=== PATIENT | male | born 1930 | race Caucasian/White ===

== ENCOUNTER 2017-05-24 13:56 | Observation (INO) | payer MEDICARE, BC ==
[~2017-05-24] VITALS: Ht 188 cm; Wt 76.5 kg
[~2017-05-24 13:56] MED LIST: TAB-TAB PO; TAMS0.4C67 PO
[2017-05-24 14:09] VITALS: BP 126/77; PULSE 84; RESP 16; TEMP 97.6; O2SAT 96
[2017-05-24 14:49] LABS: AUTOMATED NEUTROPHIL # 3.2 TH/MM3 (1.8-7.7); BASOPHIL % 0.1 % (0.0-2.0); EOSINOPHIL # 0.1 TH/MM3 (0-0.4); EOSINOPHIL % 1.5 % (0.0-4.0); HEMATOCRIT 44.3 % (39.0-51.0); HEMO FLAGS DIFF FINAL; LYMPH % 28.2 % (9.0-44.0); LYMPHOCYTE # 1.6 TH/MM3 (1.0-4.8); MEAN CORPUSCULAR HEMOGLOBIN 28.7 PG (27.0-34.0); MEAN CORPUSCULAR HGB CONC 33.4 % (32.0-36.0); MONO % 10.8 % (0.0-8.0); NEUT % 59.4 % (16.0-70.0); PLATELET COUNT 154 TH/MM3 (150-450); RED BLOOD COUNT 5.15 MIL/MM3 (4.50-5.90); RED CELL DISTRIBUTION WIDTH 13.7 % (11.6-17.2); WHITE BLOOD COUNT 5.5 TH/MM3 (4.0-11.0)
[2017-05-24 14:57] LABS: POTASSIUM 4.1 MEQ/L (3.5-5.1)
[2017-05-24 15:00] LABS: BICARBONATE 28.2 MEQ/L (21.0-32.0)
[2017-05-24 15:01] LABS: APTT (PATIENT) 32.8 SEC (24.3-30.1); INTERNATIONAL NORMALIZED RATIO 1.1 RATIO; PROTHROMBIN TIME - PATIENT 11.9 SEC (9.8-11.6)
--- NOTE | 2017-05-24 15:21 | PD ---
HPI Chief Complaint: Syncope/Near-Syncope Time Seen by Provider: 14:18 Travel History International Travel<30 days: No Contact w/Intl Traveler<30days: No Traveled to known affect area: No History of Present Illness HPI 86yo M with PMH of BPH presents to the ED with episode of not feeling well at imaging center. Pt was suppose to get CXR for cough and CT a/p for hematuria today and while standing for the CXR, he started to feel unwell around 10am. Pt cannot remember if he was nauseous or not but the accredited pharmacy technician said he did not look good so sat him down on wheelchair. He did urinate on himself prior to sitting down. Said he was feeling generalized weakness. Denies any LOC. Denies any chest pain, sob, vomiting, abdominal pain, focal weakness or numbness. Pt has no cardiac history and no angiographer. Pt had an episode of syncope in 2006 and was admitted to telemetry and had been evaluated by neurology and Dr. Davenport from cardiology. EKG was sinus bradycardia. Pt has been recently treated for UTI as well. PFSH Past Medical History Blood Disorders: No Heart Rhythm Problems: No Cancer: No Cardiovascular Problems: Yes High Cholesterol: No Chemotherapy: No Chest Pain: No Congestive Heart Failure: No Diminished Hearing: Yes (BILATERAL) Endocrine: No Gastrointestinal Disorders: No Hypertension: Yes (HAS RESOLVED WITH LIFESTYLE CHANGES) Immune Disorder: No Musculoskeletal: No Neurologic: No Psychiatric: No Reproductive: No Respiratory: No Immunizations Current: Yes Myocardial Infarction: No Radiation Therapy: No Tetanus Vaccination: > 5 Years Influenza Vaccination: Yes Past Surgical History Abdominal Surgery: No AICD: No Arteriovenous Shunt: No Cardiac Surgery: No Ear Surgery: No Endocrine Surgery: No Eye Surgery: No Genitourinary Surgery: No Gynecologic Surgery: No Insulin Pump: No Joint Replacement: No Neurologic Surgery: Yes (BRAIN BLEED) Oral Surgery: Yes (TONSILLECTOMY A CHILD) Pacemaker: No Thoracic Surgery: No Tonsillectomy: Yes (1938) Other Surgery: Yes (1989--BILATERAL INGUINAL HERNIA) Social History Alcohol Use: No Tobacco Use: No Substance Use: No Allergies-Medications (Allergen,Severity, Reaction): Coded Allergies: No Known Allergies (Verified , 05/24/17) Reported Meds & Prescriptions Reported Meds & Active Scripts Active No Active Prescriptions or Reported Medications Review of Systems Except as stated in HPI: all other systems reviewed are Neg Physical Exam Narrative GENERAL: 86yo M not in distress. SKIN: Focused skin assessment warm/dry. HEAD: Atraumatic. Normocephalic. EYES: Pupils equal and round. No scleral icterus. No injection or drainage. ENT: No nasal bleeding or discharge. Mucous membranes pink and moist. NECK: Trachea midline. No JVD. CARDIOVASCULAR: Irregular heart rate. No murmur appreciated. RESPIRATORY: No accessory muscle use. Clear to auscultation. Breath sounds equal bilaterally. GASTROINTESTINAL: Abdomen soft, non-tender, nondistended. MUSCULOSKELETAL: No obvious deformities. No clubbing. No cyanosis. No edema. NEUROLOGICAL: Awake and alert. No obvious cranial nerve deficits. Motor grossly within normal limits. Normal speech. PSYCHIATRIC: Appropriate mood and affect; insight and judgment normal. Data Data Last Documented VS Vital Signs Date Time Temp Pulse Resp B/P (MAP) Pulse Ox O2 Delivery O2 Flow Rate FiO2 05/24/17 16:11 82 14 97/60 (72) 115 14 115/69 (84) 118 14 86/58 (67) 05/24/17 16:00 98 Room Air 05/24/17 14:09 97.6 Orders Orders Complete Blood Count With Diff (05/24/17 14:36) Basic Metabolic Panel (Bmp) (05/24/17 14:36) Prothrombin Time / Inr (Pt) (05/24/17 14:36) Act Partial Throm Time (Ptt) (05/24/17 14:36) Troponin I (05/24/17 14:36) Urinalysis - C+S If Indicated (05/24/17 14:36) Orthostatic Vital Signs (05/24/17 16:01) Sodium Chlorid 0.9% 500 Ml Inj (Ns 500 M (05/24/17 16:15) Electrocardiogram (05/24/17 14:04) Admit Order (Ed Use Only) (05/24/17 17:08) Labs Laboratory Tests Test 05/24/17 14:45 White Blood Count 5.5 TH/MM3 Red Blood Count 5.15 MIL/MM3 Hemoglobin 14.8 GM/DL Hematocrit 44.3 % Mean Corpuscular Volume 86.0 FL Mean Corpuscular Hemoglobin 28.7 PG Mean Corpuscular Hemoglobin Concent 33.4 % Red Cell Distribution Width 13.7 % Platelet Count 154 TH/MM3 Mean Platelet Volume 8.2 FL Neutrophils (%) (Auto) 59.4 % Lymphocytes (%) (Auto) 28.2 % Monocytes (%) (Auto) 10.8 % Eosinophils (%) (Auto) 1.5 % Basophils (%) (Auto) 0.1 % Neutrophils # (Auto) 3.2 TH/MM3 Lymphocytes # (Auto) 1.6 TH/MM3 Monocytes # (Auto) 0.6 TH/MM3 Eosinophils # (Auto) 0.1 TH/MM3 Basophils # (Auto) 0.0 TH/MM3 CBC Comment DIFF FINAL Differential Comment Prothrombin Time 11.9 SEC Prothromb Time International Ratio 1.1 RATIO Activated Partial Thromboplast Time 32.8 SEC Blood Urea Nitrogen 33 MG/DL Creatinine 1.50 MG/DL Random Glucose 113 MG/DL Calcium Level 8.7 MG/DL Sodium Level 135 MEQ/L Potassium Level 4.1 MEQ/L Chloride Level 99 MEQ/L Carbon Dioxide Level 28.2 MEQ/L Anion Gap 8 MEQ/L Estimat Glomerular Filtration Rate 45 ML/MIN Troponin I 0.02 NG/ML [facility] Medical Decision Making Medical Screen Exam Complete: Yes Emergency Medical Condition: Yes Interpretation(s) EKG: Afib at 78bpm. LAD. No ST segment elevation or depression. Differential Diagnosis New onset afib vs. dehydration vs. UTI Narrative Course 86yo M with new onset afib. Pt has been having generalized weakness and had an episode of not feeling well at imaging center today. Daughter said he usually is very active but has been feeling weak for the last few weeks which is new and also sob with exertion. Labs reviewed, no leukocytosis. BUN/creatinine 33/ 1.50. Troponin negative. I discussed with pt's primary care physician Dr. Bravo and he said that pt has never had afib before and this is new. Also creatinine is around baseline. States the CXR he took today at [facility] shows no acute abnormality. UA pending. Orthostatic positive. Pt's heart rate went form 82bpm to 118bpm when standing. Pt given NS IVF. I discussed with Dr. Omer who accepted pt to her service. Diagnosis Primary Impression: New onset a-fib Admitting Information Admitting Physician Requests: Observation Scripts No Active Prescriptions or Reported Meds Olga Wasserman DO May 24, 2017 15:21
[2017-05-24 16:00] VITALS: BP 105/79; PULSE 85; RESP 14; O2SAT 98
[2017-05-24 16:11] VITALS: BP_SYST 115; BP_SYST 86; BP_SYST 97; BP_DIAS 58; BP_DIAS 60; BP_DIAS 69; RESP 14
[2017-05-24] MEDS ORDERED: SODIUM CHLORID 0.9% 500 ML INJ 500 ML IV ONE (16:15)
[2017-05-24] MEDS ORDERED: SODIUM CHLORIDE 0.9% FLUSH 10 ML FLUSH IV FLUSH PRN (17:15)
[2017-05-24] MEDS ORDERED: ACETAMINOPHEN 325 MG TAB PO PRN (17:15)
[2017-05-24] MEDS ORDERED: NALOXONE HCL 0.4 MG/ML AMP IV PUSH PRN (17:15)
[2017-05-24] MEDS ORDERED: BISACODYL 10 MG SUPP RECTAL PRN (17:15)
[2017-05-24] MEDS ORDERED: MAGNESIUM HYDROXIDE SUSP 30 ML CUP PO PRN (17:15)
[2017-05-24] MEDS ORDERED: ONDANSETRON HCL 4 MG/2 ML VIAL IVP PRN (17:15)
[2017-05-24] MEDS ORDERED: DILTIAZEM HCL 30 MG TAB PO PRN (17:15)
[2017-05-24] MEDS ORDERED: LACTULOSE SYRUP 20 GM/30 ML CUP PO PRN (17:15)
[2017-05-24] MEDS ORDERED: SENNOSIDES 8.6 MG TAB PO PRN (17:15)
[2017-05-24] MEDS: ASPIRIN 325 MG TAB PO SCH (17:27)
[2017-05-24] MEDS: ENOXAPARIN SODIUM 40 MG/0.4 ML SYRINGE SQ SCH (17:27)
[2017-05-24] MEDS: SODIUM CHLOR 0.9% 1000 ML INJ 1,000 ML IV SCH (17:27)
[2017-05-24 17:39] VITALS: BP 114/74; PULSE 88; RESP 16; O2SAT 98
[2017-05-24] MEDS: SODIUM CHLORIDE 0.9% FLUSH 10 ML FLUSH IV FLUSH SCH (19:38)
[2017-05-24 20:00] VITALS: BP 115/78; PULSE 77; RESP 20; TEMP 96.6; O2SAT 98
[2017-05-24 20:10] LABS: FREE T3 2.09 PG/ML (2.18-3.98)
[2017-05-24 22:01] LABS: BLOOD, URINE MOD (NEG); GLUCOSE,URINE NEG (NEG); KETONE, URINE NEG (NEG); NITRITE,URINE NEG (NEG); PH, URINE 5.5 (5.0-8.5)
[2017-05-24 22:14] LABS: RBC, URINE 0-3 /hpf (0-3); URINE COLOR YELLOW (YELLW/STRAW)
[2017-05-24 22:15] LABS: COMMENT (UR) CULT NOT INDICATED; CULTURE IF INDICATED CULT NOT INDICATED; SQUAMOUS EPITHELIAL CELL URINE 0-5 /hpf (0-5)
[2017-05-25] VITALS: BP 132/84; PULSE 77; RESP 20; TEMP 96.9; O2SAT 99
[2017-05-25] MEDS: SODIUM CHLOR 0.9% 1000 ML INJ 1,000 ML IV SCH ×3 (03:07→13:09)
[2017-05-25 04:00] VITALS: BP 116/83; PULSE 77; RESP 20; TEMP 97.7; O2SAT 98
[2017-05-25 06:44] LABS: BICARBONATE 28.9 MEQ/L (21.0-32.0); POTASSIUM 5.3 MEQ/L (3.5-5.1)
[2017-05-25 08:00] VITALS: BP 111/73; PULSE 76; RESP 18; TEMP 97.1; O2SAT 98
--- NOTE | 2017-05-25 08:11 | PD.CONS ---
HPI Service atrial fibrillation Consult Requested By Primary Care Physician Jorge A Bravo MD History of Present Illness Here with HTN, h/o syncope, h/o SDH s/p craniotomy for a syncopal episode at [facility]. He state he was there yesterday to get imaging done ordered by his PCP and had syncope. He also complained of weakness. In the ER he was found in a-fib. He denies chest pain, shortness of breath or palpitations Review of Systems Consitutional: DENIES: Fatigue, Fever, Chills, Weight gain, Weight loss Eyes: DENIES: Amaurosis Fugax, Change in vision HEENT: DENIES: Lightheadedness, Change in hearing Respiratory: DENIES: See HPI, Cough, Snoring, Shortness of breath, Wheezing, Sputum production Cardiovascular: COMPLAINS OF: See HPI Gastrointestinal: DENIES: Nausea, Vomiting, Change in bowel habits, Reflux, Bloody stools, Melena Genitourinary: DENIES: Urinary incontinence, Difficulty voiding Integumentary: DENIES: Rash Neurologic: DENIES: Tingling or numbness, Memory problems, Poor Balance, Stroke symptoms Musculoskeletal: DENIES: Joint pain, Muscle pain, Limited range of motion, Back pain Psychiatric: DENIES: Anxiety, Depression, Sleep disturbances Hematologic: DENIES: Bruising tendencies, Bleeding tendencies Endocrine: DENIES: Weight gain, Weight loss, Thyroid disease Past Family Social History Allergies: Coded Allergies: No Known Allergies (Verified , 05/24/17) Past Medical History see HPI Past Surgical History se HPI Reported Medications Reported Meds & Active Scripts Active No Active Prescriptions or Reported Medications Active Ordered Medications Current Medications Medications (Trade) Dose Ordered Sig/Tyler Route Start Time Stop Time Status Last Admin Sodium Chloride 1,000 ml @ 100 mls/hr Q10H IV 05/24/17 17:07 05/25/17 03:07 (NS Flush) 2 ml UNSCH PRN IV FLUSH 05/24/17 17:15 (NS Flush) 2 ml BID IV FLUSH 05/24/17 21:00 (Tylenol) 650 mg Q4H PRN PO 05/24/17 17:15 (Zofran Inj) 4 mg Q6H PRN IVP 05/24/17 17:15 (Lovenox Inj) 40 mg Q24H SQ 05/24/17 18:00 05/24/17 17:27 (Narcan Inj) 0.4 mg UNSCH PRN IV PUSH 05/24/17 17:15 (Milk Of Magnesia Liq) 30 ml Q12H PRN PO 05/24/17 17:15 (Senokot) 17.2 mg Q12H PRN PO 05/24/17 17:15 (Dulcolax Supp) 10 mg DAILY PRN RECTAL 05/24/17 17:15 (Lactulose Liq) 30 ml DAILY PRN PO 05/24/17 17:15 (Aspirin) 325 mg DAILY PO 05/24/17 17:15 05/24/17 17:27 (Cardizem) 30 mg Q6HR PRN PO 05/24/17 17:15 (Flu (Quadrivalent) Vaccine Inj) 0.5 ml ONCE ONCE IM 05/26/17 10:00 05/26/17 10:01 Family History noncontributory Social History denies smoking, alcohol or substance abuse Physical Exam Vital Signs Vital Signs Date Time Temp Pulse Resp B/P (MAP) Pulse Ox O2 Delivery O2 Flow Rate FiO2 05/25/17 04:00 97.7 77 20 116/83 (94) 98 05/25/17 00:00 96.9 77 20 132/84 (100) 99 05/24/17 20:00 96.6 77 20 115/78 (90) 98 05/24/17 18:05 05/24/17 17:39 88 16 114/74 (87) 98 Room Air 05/24/17 17:39 Room Air 05/24/17 16:11 82 14 97/60 (72) 115 14 115/69 (84) 118 14 86/58 (67) 05/24/17 16:00 85 14 105/79 (88) 98 Room Air 05/24/17 14:14 (93) 05/24/17 14:09 Room Air 05/24/17 14:09 97.6 84 16 126/77 (93) 96 Room Air Physical Exam GENERAL: Well-nourished, well-developed patient in no apparent distress. NECK: No JVD. No carotid bruit. CARDIOVASCULAR: IR IR. S1/S2 no murmur, rub, or gallop. RESPIRATORY: No accessory muscle use. Clear to auscultation. Breath sounds equal bilaterally. GASTROINTESTINAL: Abdomen soft, non-tender, nondistended. MUSCULOSKELETAL: Extremities without clubbing, cyanosis, or edema. Laboratory Laboratory Tests Test 05/24/17 14:45 05/24/17 21:40 05/25/17 04:50 White Blood Count 5.5 Red Blood Count 5.15 Hemoglobin 14.8 Hematocrit 44.3 Mean Corpuscular Volume 86.0 Mean Corpuscular Hemoglobin 28.7 Mean Corpuscular Hemoglobin Concent 33.4 Red Cell Distribution Width 13.7 Platelet Count 154 Mean Platelet Volume 8.2 Neutrophils (%) (Auto) 59.4 Lymphocytes (%) (Auto) 28.2 Monocytes (%) (Auto) 10.8 Eosinophils (%) (Auto) 1.5 Basophils (%) (Auto) 0.1 Neutrophils # (Auto) 3.2 Lymphocytes # (Auto) 1.6 Monocytes # (Auto) 0.6 Eosinophils # (Auto) 0.1 Basophils # (Auto) 0.0 CBC Comment DIFF FINAL Differential Comment Prothrombin Time 11.9 Prothromb Time International Ratio 1.1 Activated Partial Thromboplast Time 32.8 Blood Urea Nitrogen 33 32 Creatinine 1.50 1.40 Random Glucose 113 79 Calcium Level 8.7 7.4 Sodium Level 135 136 Potassium Level 4.1 5.3 Chloride Level 99 102 Carbon Dioxide Level 28.2 28.9 Anion Gap 8 5 Estimat Glomerular Filtration Rate 45 48 Troponin I 0.02 Free Triiodothyronine (T3) pg/dL 2.09 Thyroid Stimulating Hormone 3rd Gen 3.860 Urine Color YELLOW Urine Turbidity CLEAR Urine pH 5.5 Urine Specific [place] 1.020 Urine Protein NEG Urine Glucose (UA) NEG Urine Ketones NEG Urine Occult Blood MOD Urine Nitrite NEG Urine Bilirubin NEG Urine Leukocyte Esterase NEG Urine RBC 0-3 Urine Squamous Epithelial Cells 0-5 Microscopic Urinalysis Comment CULT NOT INDICATED Total Protein 6.0 Protein Corrected Calcium 8.0 Result Diagram: 05/24/17 1445 05/25/17 0450 Assessment and Plan Problem List: (1) New onset a-fib ICD Codes: I48.91 - Unspecified atrial fibrillation Status: Acute Assessment and Plan HR is controlled. We will get a 2D echo. In 2010 he was instructed no to take anticoagulants, therefore he may not be a candidate for these Efren Guillen May 25, 2017 08:11
[2017-05-25] MEDS: SODIUM CHLORIDE 0.9% FLUSH 10 ML FLUSH IV FLUSH SCH ×2 (09:00→21:09)
[2017-05-25] MEDS: CALCIUM CARBONATE 500 MG CHEWABLE TAB CHEW SCH ×2 (09:14→21:08)
[2017-05-25] MEDS: ASPIRIN 325 MG TAB PO SCH (09:14)
--- NOTE | 2017-05-25 11:06 | HHI.HP ---
[facility] Service [facility] Primary Care Physician Jorge A Bravo MD Admission Diagnosis New onset afib Diagnoses: Travel History International Travel<30 Days: No Contact w/Intl Traveler <30 Da: No Traveled to Known Affected Are: No History of Present Illness This is a pleasant 86 year-old male with past medical history of neurocardiogenic syncope and BPH who presented to the ER yesterday after a near syncopal episode. History is obtained from the patient's daughter at bedside as the patient himself is forgetful on a poor historian. Yesterday he was getting a chest x-ray at the [facility] which was ordered for evaluation of a chronic cough. While standing the mechanical service technician noticed that he appeared like he was about to pass out. There was no syncopal event. However he did urinate himself. In the emergency department he was noted to have atrial fibrillation with controlled ventricular rate. Patient has no previous cardiac history or or history of atrial fibrillation. Patient has recently been treated for urinary tract infection. He also has had microscopic hematuria noticed by his primary care physician and was supposed to get an abdominal CT scan yesterday for evaluation. Orthostatics were positive in the emergency department. The patient's daughter states that they have trouble getting him to drink enough fluids. His BUN and creatinine were also mildly elevated. Patient was placed in observation. Overnight he has remained in atrial fibrillation with controlled rate. He has received IV fluids. Patient denies chest pain, palpitations or shortness of breath. Daughter states that he does tend to be forgetful but he has no formal diagnosis of dementia. He recently started taking Flonase for allergies. Review of Systems ROS Limitations: Poor Historian Constitutional: DENIES: Fever, Chills Ears, nose, mouth, throat: DENIES: Throat pain, Odynophagia Respiratory: COMPLAINS OF: Cough, DENIES: Sputum production Cardiovascular: DENIES: Chest pain, Palpitations Gastrointestinal: DENIES: Abdominal pain, Vomiting Genitourinary: DENIES: Urgency, Dysuria Musculoskeletal: DENIES: Muscle aches, Stiffness Integumentary: DENIES: Pruritus Neurologic: DENIES: Abnormal gait, Headache Psychiatric: COMPLAINS OF: Confusion, DENIES: Anxiety Past Family Social History Past Medical History History of subdural hematoma with evacuation in 2011 after a fall BPH History of orthostatic syncope Past Surgical History Subdural hematoma evacuation in 2010 Bilateral inguinal hernia Reported Medications Allergies Coded Allergies Type Severity Reaction Last Updated Verified No Known Allergies 05/24/17 Yes Active Scripts Medications Dose Route/Sig Max Daily Dose Days Date Category No Active Prescriptions or Reported Medications Rx Allergies: Coded Allergies: No Known Allergies (Verified , 05/24/17) Family History Reviewed and noncontributory Social History No alcohol tobacco or drug use. He lives with his . Physical Exam Vital Signs Vital Signs Date Time Temp Pulse Resp B/P (MAP) Pulse Ox O2 Delivery O2 Flow Rate FiO2 05/25/17 08:00 97.1 76 18 111/73 (86) 98 05/25/17 04:00 97.7 77 20 116/83 (94) 98 05/25/17 00:00 96.9 77 20 132/84 (100) 99 05/24/17 20:00 96.6 77 20 115/78 (90) 98 05/24/17 18:05 05/24/17 17:39 88 16 114/74 (87) 98 Room Air 05/24/17 17:39 Room Air 05/24/17 16:11 82 14 97/60 (72) 115 14 115/69 (84) 118 14 86/58 (67) 05/24/17 16:00 85 14 105/79 (88) 98 Room Air 05/24/17 14:14 (93) 05/24/17 14:09 Room Air 05/24/17 14:09 97.6 84 16 126/77 (93) 96 Room Air Physical Exam GENERAL: Well-nourished, well-developed pleasant lean male patient in no apparent distress. SKIN: Warm and dry. HEAD: Normocephalic. EYES: No scleral icterus. No injection or drainage. NECK: Supple, trachea midline. No JVD or lymphadenopathy. CARDIOVASCULAR: Irregularly irregular rate and rhythm without murmurs, gallops, or rubs. RESPIRATORY: Breath sounds equal bilaterally. No accessory muscle use. GASTROINTESTINAL: Abdomen soft, non-tender, nondistended. EXTREMITIES: No cyanosis, or edema. NEUROLOGICAL: Awake, alert, and oriented x 3. Non-focal. Laboratory Laboratory Tests Test 05/24/17 14:45 05/24/17 21:40 05/25/17 04:50 White Blood Count 5.5 Red Blood Count 5.15 Hemoglobin 14.8 Hematocrit 44.3 Mean Corpuscular Volume 86.0 Mean Corpuscular Hemoglobin 28.7 Mean Corpuscular Hemoglobin Concent 33.4 Red Cell Distribution Width 13.7 Platelet Count 154 Mean Platelet Volume 8.2 Neutrophils (%) (Auto) 59.4 Lymphocytes (%) (Auto) 28.2 Monocytes (%) (Auto) 10.8 Eosinophils (%) (Auto) 1.5 Basophils (%) (Auto) 0.1 Neutrophils # (Auto) 3.2 Lymphocytes # (Auto) 1.6 Monocytes # (Auto) 0.6 Eosinophils # (Auto) 0.1 Basophils # (Auto) 0.0 CBC Comment DIFF FINAL Differential Comment Prothrombin Time 11.9 Prothromb Time International Ratio 1.1 Activated Partial Thromboplast Time 32.8 Blood Urea Nitrogen 33 32 Creatinine 1.50 1.40 Random Glucose 113 79 Calcium Level 8.7 7.4 Sodium Level 135 136 Potassium Level 4.1 5.3 Chloride Level 99 102 Carbon Dioxide Level 28.2 28.9 Anion Gap 8 5 Estimat Glomerular Filtration Rate 45 48 Troponin I 0.02 Free Triiodothyronine (T3) pg/dL 2.09 Thyroid Stimulating Hormone 3rd Gen 3.860 Urine Color YELLOW Urine Turbidity CLEAR Urine pH 5.5 Urine Specific [place] 1.020 Urine Protein NEG Urine Glucose (UA) NEG Urine Ketones NEG Urine Occult Blood MOD Urine Nitrite NEG Urine Bilirubin NEG Urine Leukocyte Esterase NEG Urine RBC 0-3 Urine Squamous Epithelial Cells 0-5 Microscopic Urinalysis Comment CULT NOT INDICATED Total Protein 6.0 Protein Corrected Calcium 8.0 Result Diagram: 05/24/17 1445 05/25/17 0450 Caprini VTE Risk Assessment Caprini VTE Risk Assessment: No/Low Risk (score <= 1) Caprini Risk Assessment Model Point Value = 1 Point Value = 2 Point Value = 3 Point Value = 5 Age 41-60 Minor surgery BMI > 25 kg/m2 Swollen legs Varicose veins or History of unexplained or recurrent spontaneous Oral contraceptives or hormone replacement Sepsis (< 1 month) Serious lung disease, including pneumonia (< 1 month) Abnormal pulmonary function Acute myocardial infarction Congestive heart failure (< 1 month) History of inflammatory bowel disease Medical patient at bed rest Age 61-74 Arthroscopic surgery Major open surgery (> 45 min) Laparoscopic surgery (> 45 min) Malignancy Confined to bed (> 72 hours) Immobilizing plaster cast Central venous access Age >= 75 History of VTE Family history of VTE Factor V Leiden Prothrombin [id number] Lupus anticoagulant Anticardiolipin antibodies Elevated serum homocysteine Heparin-induced thrombocytopenia Other congenital or acquired thrombophilia Stroke (< 1 month) Elective arthroplasty Hip, pelvis, or leg fracture Acute spinal cord injury (< 1 month) Prophylaxis Regimen Total Risk Factor Score Risk Level Prophylaxis Regimen 0-1 Low Early ambulation 2 Moderate Order ONE of the following: *Sequential Compression Device (SCD) *Heparin 5000 units SQ BID 3-4 Higher Order ONE of the following medications: *Heparin 5000 units SQ TID *Enoxaparin/Lovenox 40 mg SQ daily (WT < 150 kg, CrCl > 30 mL/min) *Enoxaparin/Lovenox 30 mg SQ daily (WT < 150 kg, CrCl > 10-29 mL/min) *Enoxaparin/Lovenox 30 mg SQ BID (WT < 150 kg, CrCl > 30 mL/min) AND/OR *Sequential Compression Device (SCD) 5 or more Highest Order ONE of the following medications: *Heparin 5000 units SQ TID (Preferred with Epidurals) *Enoxaparin/Lovenox 40 mg SQ daily (WT < 150 kg, CrCl > 30 mL/min) *Enoxaparin/Lovenox 30 mg SQ daily (WT < 150 kg, CrCl > 10-29 mL/min) *Enoxaparin/Lovenox 30 mg SQ BID (WT < 150 kg, CrCl > 30 mL/min) AND *Sequential Compression Device (SCD) Assessment and Plan Problem List: (1) HANK (acute kidney injury) ICD Code: N17.9 - Acute kidney failure, unspecified (2) Dehydration ICD Code: E86.0 - Dehydration (3) Vasovagal near syncope ICD Code: R55 - Syncope and collapse (4) New onset a-fib ICD Code: I48.91 - Unspecified atrial fibrillation Status: Acute Assessment and Plan -Atrial fibrillation with controlled ventricular rate. No previous history of atrial fibrillation. I discussed with cardiology Dr. Mcgee. We will observe the patient's heart rate overnight to ensure that he is not having bradycardia that could've contributed to a near syncopal episode. Chads score is low as he will be treated with aspirin. Follow-up 2-D echocardiogram. -Suppressed TSH. Check free T4 level. -Microscopic hematuria. To be followed up by his primary care physician. -Orthostatic hypotension. Patient was encouraged to drink more fluids. Continue IV fluid hydration, serial orthostatic blood pressure. -Mild acute kidney injury with mild hyperkalemia. Treat with IV fluids. Kayexalate 1. -BPH. Not currently on medication for this. -DVT prophylaxis with SCDs. Marie Omer MD May 25, 2017 11:06
[2017-05-25] MEDS ORDERED: SODIUM POLYSTYRENE SULFONATE SUSP 15 GM/60 ML CUP PO ONE (11:30)
[2017-05-25 12:00] VITALS: BP 107/74; PULSE 74; RESP 18; TEMP 96.9; O2SAT 97
--- NOTE | 2017-05-25 12:53 | EKG ---
Date Performed: 05/24/2017 Time Performed: 14:04:20 PTAGE: 86 years EKG: ATRIAL FIBRILLATION MARKED LEFT AXIS DEVIATION ABNORMAL ECG PREVIOUS TRACING : 07/21/2011 07.26 Compared to previous tracing, patient is now in atrial fibr illation. DOCTOR: Lane Morgan Interpretating Date/Time 05/25/2017 12:52:34
[2017-05-25 16:00] VITALS: BP 136/81; PULSE 86; RESP 18; TEMP 97.8; O2SAT 98
[2017-05-25] MEDS: ENOXAPARIN SODIUM 40 MG/0.4 ML SYRINGE SQ SCH (18:00)
[2017-05-25 20:00] VITALS: BP 126/84; PULSE 80; PULSE 88; RESP 18; TEMP 97.9; O2SAT 96
[2017-05-26] VITALS: BP 133/86; PULSE 82; RESP 18; TEMP 99.1; O2SAT 96
[2017-05-26] MEDS: SODIUM CHLOR 0.9% 1000 ML INJ 1,000 ML IV SCH ×2 (01:28→09:43)
[2017-05-26 04:00] VITALS: BP 136/90; PULSE 83; RESP 18; TEMP 97.8; O2SAT 96
[2017-05-26] MEDS: SODIUM CHLORIDE 0.9% FLUSH 10 ML FLUSH IV FLUSH SCH (09:00)
[2017-05-26 09:05] LABS: POTASSIUM 4.7 MEQ/L (3.5-5.1)
[2017-05-26 09:06] VITALS: BP 142/96; PULSE 94; RESP 16; TEMP 98; O2SAT 98
[2017-05-26] MEDS: ASPIRIN 325 MG TAB PO SCH (09:39)
[2017-05-26] MEDS: CALCIUM CARBONATE 500 MG CHEWABLE TAB CHEW SCH (09:39)
[2017-05-26] MEDS ORDERED: INFLUENZA VIRUS VACCINE (QUADRIVALENT) 0.5 ML SYR IM ONE (10:00)
--- NOTE | 2017-05-26 11:15 | HHI.PR ---
Subjective Remarks Patient denies dizziness lightheadedness palpitations. States he feels fine and wants to go home. He would like to shower. Orthostatic blood pressure was not checked by nursing. Echocardiogram is still pending. Objective Vitals Vital Signs Date Time Temp Pulse Resp B/P (MAP) Pulse Ox O2 Delivery O2 Flow Rate FiO2 05/26/17 09:06 98.0 94 16 142/96 (111) 98 05/26/17 04:00 97.8 83 18 136/90 (105) 96 05/26/17 00:00 99.1 82 18 133/86 (102) 96 05/25/17 20:00 97.9 80 18 126/84 (98) 96 05/25/17 20:00 88 05/25/17 16:00 97.8 86 18 136/81 (99) 98 05/25/17 12:00 96.9 74 18 107/74 (85) 97 I/O 05/25/17 05/25/17 05/25/17 05/26/17 05/26/17 05/26/17 06:59 14:59 22:59 06:59 14:59 22:59 Intake Total 1800 ml 120 ml Output Total 700 ml 450 ml 350 ml 1150 ml 150 ml Balance -700 ml -450 ml 1450 ml -1030 ml -150 ml Intake Oral 120 ml IV Total 1800 ml Output Urine Total 700 ml 450 ml 350 ml 1150 ml 150 ml Stool Total 0 ml # Voids 1 # Bowel Movements 0 Result Diagram: 05/24/17 1445 05/26/17 0750 Objective Remarks GENERAL: Well-nourished, well-developed pleasant lean elderly male patient. SKIN: Warm and dry. HEAD: Normocephalic. EYES: No scleral icterus. No injection or drainage. NECK: Supple, trachea midline. No JVD or lymphadenopathy. CARDIOVASCULAR: Irregularly irregular rate and rhythm without murmurs, gallops, or rubs. RESPIRATORY: Breath sounds equal bilaterally. No accessory muscle use. GASTROINTESTINAL: Abdomen soft, non-tender, nondistended. EXTREMITIES: No cyanosis, or edema. NEUROLOGICAL: Awake, alert, and oriented x 3. Non-focal. A/P Problem List: (1) HANK (acute kidney injury) ICD Code: N17.9 - Acute kidney failure, unspecified (2) Dehydration ICD Code: E86.0 - Dehydration (3) Vasovagal near syncope ICD Code: R55 - Syncope and collapse (4) New onset a-fib ICD Code: I48.91 - Unspecified atrial fibrillation Status: Acute Assessment and Plan -Atrial fibrillation with controlled ventricular rate. No previous history of atrial fibrillation. I discussed yesterday with cardiology Dr. Mcgee. Patient's heart rate has been stable overnight. Chads score is low as he will be treated with aspirin. 2-D echocardiogram is still pending. -Mildly Suppressed TSH. free T4 level within normal limits, this is mild subclinical hypothyroidism. -Microscopic hematuria. To be followed up by his primary care physician. -Orthostatic hypotension with syncope/near syncope. Hep-Lock IV. Repeat orthostatic blood pressure this morning. Patient was encouraged to drink more fluids at home. -Mild acute kidney injury with mild hyperkalemia. Resolved. -BPH. Not currently on medication for this. -DVT prophylaxis with SCDs. Discharge Planning Plan for discharge home this afternoon after echocardiogram has been completed. Marie Omer MD May 26, 2017 11:15
[2017-05-26] MEDS ORDERED: ASPI81TA11 PO (11:16)
--- NOTE | 2017-05-26 11:17 | HHI.FF ---
Face to Face Verification Diagnosis: (1) Vasovagal near syncope (2) New onset a-fib (3) Dehydration Physical Therapy Order: Evaluate and Treat Home Health Nursing Order: Nursing assessment with vital signs I have seen patient Kamar Martin on 05/26/17. My clinical findings support the need for the requested home health care services because: Need for psychosocial assistance Impaired cognition/judgement I certify that my clinical findings support that this patient is homebound because: Unsteady gait/balance Need for psychosocial assistance Marie Omer MD May 26, 2017 11:17
[2017-05-26 13:37] VITALS: BP 147/87; PULSE 89; RESP 20; TEMP 96.2; O2SAT 97
--- NOTE | 2017-05-26 17:33 | ECHRPT ---
CONCLUSIONS Normal left ventricular size. Wall thickness is normal. The left ventricular systolic function is normal with an estimated ejection fraction in the range of 55-60%. [id number] mitral valve regurgitation. Aortic valve sclerosis is present. Mild aortic valve regurgitation. There is mild tricuspid valve regurgitation. The estimated pulmonary arterial pressure is 34 mmHg. There is a small pericardial effusion present. A right sided pleural effusion is present. BP: / HR: Rhythm: MEASUREMENTS (Male / Female) Normal Values Technical Quality:Good 2D ECHO LV Diastolic Diameter PLAX 5.3 cm 4.2 - 5.9 / 3.9 - 5.3 cm LV Systolic Diameter PLAX 3.9 cm IVS Diastolic Thickness 1.3 cm 0.6 - 1.0 / 0.6 - 0.9 cm LVPW Diastolic Thickness 0.8 cm 0.6 - 1.0 / 0.6 - 0.9 cm LV Relative Wall Thickness 0.4 RV Internal Dim ED PLAX 2.9 cm LA Systolic Diameter LX 4.3 cm 3.0 - 4.0 / 2.7 - 3.8 cm DOPPLER AI Peak Velocity 503.0 cm/s AI Peak Gradient 101.2 mmHg AI Pressure Half Time 569.0 ms MR Peak Velocity 404.0 cm/s MR Peak Gradient 65.3 mmHg Mitral E Point Velocity 70.1 cm/s TR Peak Velocity 269.0 cm/s TR Peak Gradient 28.9 mmHg FINDINGS LEFT VENTRICLE Normal left ventricular size. Wall thickness is normal. The left ventricular systolic function is normal with an estimated ejection fraction in the range of 55-60%. RIGHT VENTRICLE Normal right ventricular size and systolic function. LEFT ATRIUM The left atrial size is normal. RIGHT ATRIUM The right atrial size is normal. ATRIAL SEPTUM Normal atrial septal thickness without atrial level shunting by limited color doppler interrogation. AORTA The aortic root and proximal ascending aorta are normal in size on limited imaging. MITRAL VALVE [id number] mitral valve regurgitation. AORTIC VALVE Aortic valve sclerosis is present. Mild aortic valve regurgitation. TRICUSPID VALVE There is mild tricuspid valve regurgitation. The estimated pulmonary arterial pressure is 34 mmHg. PULMONARY VALVE The pulmonary valve is not well visualized. VESSELS The inferior vena cava is normal in size. PERICARDIUM There is a small pericardial effusion present. A right sided pleural effusion is present. No hemodynamically significant echocardiographic features were observed (no pre-tamponade physiology). Aaron Winter MD, FACC (Electronically Signed) Final Date:26 May 2017 17:32
== END 2017-05-26 16:00 | disposition home health service (06) ==
LOC: PHED 13:56 → PHEDA 17:09 → PH3A 18:03
PROVIDERS: ADMIT Family Medicine; ATTEND Family Medicine
DX: I48.91 Unspecified atrial fibrillation (principal); R31.29 Other microscopic hematuria; N40.0 Benign prostatic hyperplasia without lower urinary tract symptoms; R05 Cough; Z23 Encounter for immunization
CPT/HCPCS: 80048; 81001; 84155; 84439; 84443; 84481; 84484; 85025; 85610; 85730; 93005; 93306; 96360; 96361; 96372; 97162; 99285; G0008; G0378; G8987; G8988; J1650; J7030; J7040; Q2038; 90471; 90686

== ENCOUNTER 2017-08-02 12:06 | Inpatient (IN) | payer MEDICARE, BC ==
[~2017-08-02] VITALS: Ht 188 cm; Wt 67.3 kg
[2017-08-02] VITALS (25 sets, daily range): BP systolic 100–132; BP diastolic 63–86; PULSE 81–144; RESP 16–36; TEMP 97.6–98.4; O2SAT 85–97
[~2017-08-02 12:06] MED LIST changes: +ASPI81TA23 PO; -TAB-TAB PO; -TAMS0.4C67 PO
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
[2017-08-02] MEDS ORDERED: SODIUM CHLORIDE 0.9% FLUSH 10 ML FLUSH IV FLUSH PRN ×2 (12:45→14:15)
[2017-08-02] MEDS ORDERED: DILTIAZEM HCL 25 MG/5 ML VIAL IV PUSH ONE (12:45)
[2017-08-02] MEDS ORDERED: DILTIAZEM DRIP INJ PREMIX 125 ML IV PRN (12:45)
[2017-08-02 12:53] LABS: AUTOMATED NEUTROPHIL # 6.8 TH/MM3 (1.8-7.7); BASOPHIL # 0.1 TH/MM3 (0-0.2); BASOPHIL % 1.1 % (0.0-2.0); EOSINOPHIL % 0.1 % (0.0-4.0); HEMATOCRIT 40.9 % (39.0-51.0); LYMPH % 9.2 % (9.0-44.0); LYMPHOCYTE # 0.8 TH/MM3 (1.0-4.8); MEAN CELL VOLUME 83.5 FL (80.0-100.0); MEAN CORPUSCULAR HEMOGLOBIN 27.1 PG (27.0-34.0); MEAN CORPUSCULAR HGB CONC 32.5 % (32.0-36.0); NEUT % 83.6 % (16.0-70.0); PLATELET COUNT 241 TH/MM3 (150-450); RED CELL DISTRIBUTION WIDTH 14.7 % (11.6-17.2); WHITE BLOOD COUNT 8.2 TH/MM3 (4.0-11.0)
[2017-08-02 12:54] LABS: HEMO FLAGS DIFF FINAL
[2017-08-02 13:02] LABS: CHLORIDE 97 MEQ/L (98-107); SODIUM (NA) 131 MEQ/L (136-145)
[2017-08-02 13:06] LABS: ANION GAP 12 MEQ/L (5-15); BICARBONATE 22.5 MEQ/L (21.0-32.0); BLOOD UREA NITROGEN 27 MG/DL (7-18)
[2017-08-02 13:07] LABS: APTT (PATIENT) 41.3 SEC (24.3-30.1); INTERNATIONAL NORMALIZED RATIO 1.4 RATIO; PROTHROMBIN TIME - PATIENT 13.9 SEC (9.8-11.6)
--- NOTE | 2017-08-02 13:07 | RADRPT ---
EXAM DATE/TIME: 08/02/2017 12:37 [facility] COMPARISON: CHEST SINGLE AP, July 21, 2011, 7:46. INDICATIONS : Short of breath for one month. MEDICAL HISTORY : A-FIB SURGICAL HISTORY : Inguinal hernia repair. Tonsillectomy. ENCOUNTER: Initial ACUITY: 1 month PAIN SCORE: 0/10 LOCATION: Bilateral chest FINDINGS: Small bilateral pleural effusions are noted. The heart is enlarged. The pulmonary vascular is normal. The lungs are otherwise clear. Degenerative changes and scoliosis of the thoracic spine are noted. CONCLUSION: 1. Small bilateral pleural effusions. 2. Cardiomegaly. 3. No acute focal pulmonary infiltrate or pulmonary vascular congestion. 4. Degenerative changes and scoliosis of the thoracic spine. Sterling Peacock MD on August 02, 2017 at 13:04 Board Certified Radiologist. This report was verified electronically.
[2017-08-02] MEDS ORDERED: CLAR10TA7 PO (13:08)
[2017-08-02 13:09] LABS: ALT (GPT) 26 U/L (12-78); AST (GOT) 28 U/L (15-37); GLOMERULAR FILTRATION RATE 48 ML/MIN (>89)
[2017-08-02 13:10] LABS: TOTAL BILIRUBIN ADULT 0.9 MG/DL (0.2-1.0)
[2017-08-02 13:12] LABS: ALKALINE PHOSPHATASE 70 U/L (45-117)
[2017-08-02] MEDS ORDERED: NALOXONE HCL 0.4 MG/ML AMP IV PUSH PRN (14:15)
[2017-08-02] MEDS ORDERED: ACETAMINOPHEN 325 MG TAB PO PRN (14:15)
[2017-08-02] MEDS ORDERED: SENNOSIDES 8.6 MG TAB PO PRN (14:15)
[2017-08-02 14:46] LABS: LACTIC ACID GHOST NOT REPORTABLE
[2017-08-02] MEDS ORDERED: DILTIAZEM-CD 120 MG CAP ER PO ONE (16:45)
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
[2017-08-02] MEDS: PANTOPRAZOLE SOD 40 MG DELAYED RELEASE TAB PO SCH (17:37)
[2017-08-02] MEDS: SODIUM CHLORIDE 0.9% FLUSH 10 ML FLUSH IV FLUSH SCH (19:39)
[2017-08-03] VITALS (9 sets, daily range): BP systolic 98–124; BP diastolic 61–79; PULSE 68–86; RESP 19–67; TEMP 97.6–98.6; O2SAT 93–98
[2017-08-03 04:34] LABS: AUTOMATED NEUTROPHIL # 4.4 TH/MM3 (1.8-7.7); BASOPHIL # 0.1 TH/MM3 (0-0.2); BASOPHIL % 1.1 % (0.0-2.0); EOSINOPHIL % 0.4 % (0.0-4.0); LYMPH % 9.6 % (9.0-44.0); LYMPHOCYTE # 0.5 TH/MM3 (1.0-4.8); MEAN CELL VOLUME 83.3 FL (80.0-100.0); MEAN CORPUSCULAR HEMOGLOBIN 27.6 PG (27.0-34.0); MEAN CORPUSCULAR HGB CONC 33.2 % (32.0-36.0); MONO % 8.6 % (0.0-8.0); NEUT % 80.3 % (16.0-70.0); PLATELET COUNT 204 TH/MM3 (150-450); RED BLOOD COUNT 4.33 MIL/MM3 (4.50-5.90); RED CELL DISTRIBUTION WIDTH 14.5 % (11.6-17.2); WHITE BLOOD COUNT 5.5 TH/MM3 (4.0-11.0)
[2017-08-03 04:38] LABS: HEMO FLAGS DIFF FINAL
[2017-08-03 04:40] LABS: POTASSIUM 4.9 MEQ/L (3.5-5.1)
[2017-08-03 04:44] LABS: BICARBONATE 23.8 MEQ/L (21.0-32.0)
[2017-08-03 04:46] LABS: BLOOD, URINE SMALL (NEG); GLUCOSE,URINE NEG (NEG); KETONE, URINE NEG (NEG); NITRITE,URINE NEG (NEG)
[2017-08-03 04:51] LABS: URINE COLOR AMBER (YELLW/STRAW)
[2017-08-03 04:53] LABS: COMMENT (UR) CULT NOT INDICATED; CULTURE IF INDICATED CULT NOT INDICATED; SQUAMOUS EPITHELIAL CELL URINE 0-5 /hpf (0-5); WBC, URINE 0-2 /hpf (0-5)
[2017-08-03] MEDS: PANTOPRAZOLE SOD 40 MG DELAYED RELEASE TAB PO SCH (08:26)
[2017-08-03] MEDS: SODIUM CHLORIDE 0.9% FLUSH 10 ML FLUSH IV FLUSH SCH (08:26)
[2017-08-03] MEDS ORDERED: DILTIAZEM-CD 120 MG CAP ER PO SCH (09:00)
[2017-08-03] MEDS ORDERED: ASPIRIN EC 81 MG TABEC PO SCH (09:00)
[2017-08-03] MEDS ORDERED: PNEUMOCOCCAL POLYVALENT INJ 25 MCG/0.5 ML SYR IM ONE (10:00)
--- NOTE | 2017-08-03 10:17 | ECHRPT ---
Indication: pericardial effusion CONCLUSIONS Wall thickness is normal. Normal left ventricular size. The left ventricular systolic function is low normal with an estimated ejection fraction of 50%. No regional wall motion abnormalities are present. Trileaflet aortic valve. Trace aortic valve regurgitation. Structurally normal tricuspid valve. There is mild tricuspid valve regurgitation. Small to moderate sized circumferential pericardial effusion with no echocardiographic evidence for tamponade. A left pleural effusion is also noted. BP: / HR: Rhythm: MEASUREMENTS (Male / Female) Normal Values Technical Quality:Good 2D ECHO LV Diastolic Diameter PLAX 4.2 cm 4.2 - 5.9 / 3.9 - 5.3 cm LV Systolic Diameter PLAX 3.2 cm IVS Diastolic Thickness 1.6 cm 0.6 - 1.0 / 0.6 - 0.9 cm LVPW Diastolic Thickness 1.3 cm 0.6 - 1.0 / 0.6 - 0.9 cm LV Relative Wall Thickness 0.7 RV Internal Dim ED PLAX 3.2 cm FINDINGS LEFT VENTRICLE Wall thickness is normal. Normal left ventricular size. The left ventricular systolic function is low normal with an estimated ejection fraction of 50%. No regional wall motion abnormalities are present. RIGHT VENTRICLE Normal right ventricular size and systolic function. LEFT ATRIUM The left atrial size is normal. RIGHT ATRIUM The right atrial size is normal. ATRIAL SEPTUM Normal atrial septal thickness without atrial level shunting by limited color doppler interrogation. AORTA The aortic root and proximal ascending aorta are normal in size on limited imaging. MITRAL VALVE Structurally normal mitral valve. Trace mitral valve regurgitation. AORTIC VALVE Trileaflet aortic valve. Trace aortic valve regurgitation. TRICUSPID VALVE Structurally normal tricuspid valve. There is mild tricuspid valve regurgitation. PULMONARY VALVE The pulmonary valve is not well visualized. VESSELS The inferior vena cava is normal in size. PERICARDIUM Small to moderate sized circumferential pericardial effusion with no echocardiographic evidence for tamponade. A left pleural effusion is also noted. Dilan Salomon MD (Electronically Signed) Final Date:03 August 2017 10:17
--- NOTE | 2017-08-03 14:28 | HHI.FF ---
Face to Face Verification Diagnosis: (1) Dehydration Physical Therapy Order: Evaluate and Treat, Improve ambulation Occupational Therapy Order: Evaluate and Treat, Improve ADL I have seen patient Kamar Martin on 08/03/17. My clinical findings support the need for the requested home health care services because: High risk of falls I certify that my clinical findings support that this patient is homebound because: Unsteady gait/balance Muna Rios MD Aug 03, 2017 14:28
[2017-08-03] MEDS ORDERED: WALKER WHEELS/F1 MIS (14:30)
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
--- NOTE | 2017-08-04 12:24 | EKG ---
Date Performed: 08/02/2017 Time Performed: 12:45:32 PTAGE: 87 years EKG: ATRIAL FIBRILLATION WITH RAPID VENTRICULAR RESPONSE LOW QRS VOLTAGE IN EXTREMITY LEADS INFE RIOR MYOCARDIAL INFARCTION ABNORMAL ECG PREVIOUS TRACING : 05/24/2017 14.04 DOCTOR: Kim Claire Interpretating Date/Time 08/04/2017 12:22:48
== END 2017-08-03 17:03 | disposition home health service (06) | DRG 309 ==
LOC: PHED 12:06 → PHEDA 13:47 → PHICU 15:35
PROVIDERS: ADMIT Hospitalist; ATTEND Hospitalist
DX: I48.91 Unspecified atrial fibrillation (principal); E87.1 Hypo-osmolality and hyponatremia; J44.9 Chronic obstructive pulmonary disease, unspecified; E87.5 Hyperkalemia; Z68.1 Body mass index [BMI] 19.9 or less, adult; E86.0 Dehydration; R63.0 Anorexia; H91.93 Unspecified hearing loss, bilateral; N40.0 Benign prostatic hyperplasia without lower urinary tract symptoms; I51.7 Cardiomegaly; R63.4 Abnormal weight loss; Z82.3 Family history of stroke; Z23 Encounter for immunization
CPT/HCPCS: 71010; 80048; 80053; 81001; 83605; 83735; 83880; 84443; 84484; 85025; 85610; 85730; 87040; 87804; 90471; 90732; 93005; 93308; 96365; 96375; G0009

== ENCOUNTER 2017-08-07 06:03 | Inpatient (IN) | payer MEDICARE, BC ==
[2017-08-07] VITALS (10 sets, daily range): BP systolic 106–142; BP diastolic 66–102; PULSE 80–153; RESP 16–29; TEMP 97.5–98.4; O2SAT 95–99
[~2017-08-07] VITALS: Ht 188 cm; Wt 69.4 kg
[~2017-08-07 06:03] MED LIST changes: +CLAR10TA7 PO; +WALKER WHEELS/F1 MIS
--- NOTE | 2017-08-07 06:14 | PD ---
HPI Chief Complaint: dyspnea Time Seen by Provider: 06:12 Travel History International Travel<30 days: No Contact w/Intl Traveler<30days: No History of Present Illness HPI 87-year-old male arrives to the ER complaining of shortness of breath and palpitations. The patient's daughter observed the shortness of breath in the hop grower which gradually worsened. The patient was discharged from here about 5 days prior following admission for new onset atrial fibrillation. The patient daughter gave the patient 3 tablets of aspirin. He denies chest pain however had been coughing. With some dyspnea. No fever. Patient was discharged from here 3 days prior and had been doing well and then gradually declined since. PFSH Past Medical History Arthritis: No Asthma: No Atrial Fibrillation: Yes Blood Disorders: No Anxiety: No Depression: No Heart Rhythm Problems: Yes (a fib dx 05/2017) Cancer: No Cardiovascular Problems: No High Cholesterol: No Chemotherapy: No Chest Pain: No Congestive Heart Failure: No COPD: Yes Cerebrovascular Accident: No Diabetes: No Diminished Hearing: Yes (BILATERAL) Endocrine: No Gastrointestinal Disorders: No Genitourinary: No Hypertension: Yes (HAS RESOLVED WITH LIFESTYLE CHANGES) Immune Disorder: No Musculoskeletal: No Neurologic: No Psychiatric: No Reproductive: No Respiratory: No Immunizations Current: Yes Myocardial Infarction: No Radiation Therapy: No Seizures: No Sleep Apnea: No Thyroid Disease: No Past Surgical History Abdominal Surgery: No AICD: No Arteriovenous Shunt: No Cardiac Surgery: No Ear Surgery: No Endocrine Surgery: No Eye Surgery: No Genitourinary Surgery: No Gynecologic Surgery: No Insulin Pump: No Joint Replacement: No Neurologic Surgery: Yes (BRAIN BLEED) Oral Surgery: No Pacemaker: No Thoracic Surgery: No Tonsillectomy: Yes (1938) Other Surgery: Yes (1989--BILATERAL INGUINAL HERNIA) Social History Alcohol Use: No Tobacco Use: No Substance Use: No Allergies-Medications (Allergen,Severity, Reaction): Coded Allergies: No Known Allergies (Verified Allergy, Unknown, 08/07/17) Reported Meds & Prescriptions Reported Meds & Active Scripts Active Walker with Front Wheels (Device) 1 Mis Mis Ea .ROUTE DIRECTED Aspirin EC (Aspirin) 81 Mg Tabdr 81 Mg PO DAILY Reported Mucinex DM (Dextromethorphan-Guaifenesin) 30-600 Mg Tab 1 Tab PO BID PRN Review of Systems Except as stated in HPI: all other systems reviewed are Neg General / Constitutional: No: Fever Cardiovascular: Positive: Palpitations Respiratory: Positive: Cough Physical Exam Narrative GENERAL: 87-year-old male well-nourished well-developed mild to moderate distress SKIN: Focused skin assessment warm/dry. HEAD: Atraumatic. Normocephalic. EYES: Pupils equal and round. No scleral icterus. No injection or drainage. ENT: No nasal bleeding or discharge. Mucous membranes pink and moist. NECK: Trachea midline. No JVD. CARDIOVASCULAR: Tachycardia. Irregular. RESPIRATORY: No accessory muscle use. Clear to auscultation. Breath sounds equal bilaterally. GASTROINTESTINAL: Abdomen soft, non-tender, nondistended. Hepatic and splenic margins not palpable. MUSCULOSKELETAL: No obvious deformities. No clubbing. No cyanosis. No edema. NEUROLOGICAL: Awake and alert. No obvious cranial nerve deficits. Motor grossly within normal limits. Normal speech. PSYCHIATRIC: Appropriate mood and affect; insight and judgment normal. Data Data Last Documented VS Vital Signs Date Time Temp Pulse Resp B/P (MAP) Pulse Ox O2 Delivery O2 Flow Rate FiO2 08/07/17 06:41 88 18 106/66 (79) 95 Room Air 08/07/17 06:22 97.7 Vital signs reviewed Orders Orders Electrocardiogram (08/07/17 06:12) Basic Metabolic Panel (Bmp) (08/07/17 06:12) Ckmb (Isoenzyme) Profile (08/07/17 06:12) Complete Blood Count With Diff (08/07/17 06:12) Magnesium (Mg) (08/07/17 06:12) Prothrombin Time / Inr (Pt) (08/07/17 06:12) Act Partial Throm Time (Ptt) (08/07/17 06:12) Troponin I (08/07/17 06:12) Chest, Single Ap (08/07/17 06:12) Ecg Monitoring (08/07/17 06:12) Iv Access Insert/Monitor (08/07/17 06:12) Oximetry (08/07/17 06:12) Oxygen Administration (08/07/17 06:12) Sodium Chloride 0.9% Flush (Ns Flush) (08/07/17 06:15) Diltiazem Inj (Cardizem Inj) (08/07/17 06:15) Diltiazem Inj (Cardizem Inj) (08/07/17 06:15) B-Type Natriuretic Peptide (08/07/17 06:48) Blood Culture (08/07/17 06:48) Sodium Chloride 0.9% Flush (Ns Flush) (08/07/17 07:00) Ceftriaxone Inj (Rocephin Inj) (08/07/17 07:00) Azithromycin Inj (Zithromax Inj) (08/07/17 07:00) Admit Order (Ed Use Only) (08/07/17 ) Auto Radiator Specialist / Telemetry RINA.Q8H (08/07/17 06:56) Vital Signs (Adult) Q4H (08/07/17 06:56) Diet Heart Healthy (08/07/17 Breakfast) Activity Bed Rest (08/07/17 06:56) Notify Dr: Other (08/07/17 06:56) Azithromycin Inj (Zithromax Inj) (08/08/17 08:00) Ceftriaxone Inj (Rocephin Inj) (08/08/17 09:00) Place In Observation (08/07/17 ) Vital Signs (Adult) Q4H (08/07/17 06:55) Activity Oob With Assistance (08/07/17 06:55) Sodium Chloride 0.9% Flush (Ns Flush) (08/07/17 07:00) Sodium Chloride 0.9% Flush (Ns Flush) (08/07/17 09:00) Acetaminophen (Tylenol) (08/07/17 07:00) Ondansetron Inj (Zofran Inj) (08/07/17 07:00) Basic Metabolic Panel (Bmp) (08/08/17 06:00) Complete Blood Count With Diff (08/08/17 06:00) Heparin Inj (Heparin Inj) (08/07/17 08:00) Naloxone Inj (Narcan Inj) (08/07/17 07:00) Docusate Sodium-Senna (Marla-Colace) (08/07/17 09:00) Magnesium Hydroxide Liq (Milk Of Magnesi (08/07/17 07:00) Sennosides (Senokot) (08/07/17 07:00) Bisacodyl Supp (Dulcolax Supp) (08/07/17 07:00) Lactulose Liq (Lactulose Liq) (08/07/17 07:00) Auto Radiator Specialist / Telemetry RINA.Q8H (08/07/17 06:55) Labs Laboratory Tests Test 08/07/17 06:10 08/07/17 06:55 White Blood Count 7.9 TH/MM3 Red Blood Count 4.87 MIL/MM3 Hemoglobin 13.0 GM/DL Hematocrit 41.6 % Mean Corpuscular Volume 85.4 FL Mean Corpuscular Hemoglobin 26.7 PG Mean Corpuscular Hemoglobin Concent 31.2 % Red Cell Distribution Width 15.2 % Platelet Count 362 TH/MM3 Mean Platelet Volume 7.3 FL Neutrophils (%) (Auto) 84.6 % Lymphocytes (%) (Auto) 9.7 % Monocytes (%) (Auto) 5.1 % Eosinophils (%) (Auto) 0.5 % Basophils (%) (Auto) 0.1 % Neutrophils # (Auto) 6.7 TH/MM3 Lymphocytes # (Auto) 0.8 TH/MM3 Monocytes # (Auto) 0.4 TH/MM3 Eosinophils # (Auto) 0.0 TH/MM3 Basophils # (Auto) 0.0 TH/MM3 CBC Comment DIFF FINAL Differential Comment Prothrombin Time 11.3 SEC Prothromb Time International Ratio 1.1 RATIO Activated Partial Thromboplast Time 31.9 SEC Blood Urea Nitrogen 32 MG/DL Creatinine 1.30 MG/DL Random Glucose 162 MG/DL Calcium Level 8.3 MG/DL Magnesium Level 1.9 MG/DL Sodium Level 128 MEQ/L Potassium Level 4.8 MEQ/L Chloride Level 95 MEQ/L Carbon Dioxide Level 19.9 MEQ/L Anion Gap 13 MEQ/L Estimat Glomerular Filtration Rate 52 ML/MIN Total Creatine Kinase 35 U/L Troponin I LESS THAN 0.02 NG/ML B-Type Natriuretic Peptide 389 PG/ML MDM Medical Decision Making Medical Screen Exam Complete: Yes Emergency Medical Condition: Yes Medical Record Reviewed: Yes Differential Diagnosis pneumonia A. fib with RVR nSTEMI Narrative Course EKG shows A. fib RVR rate about 140 CBC & BMP Diagram 08/07/17 06:10 Calcium Level 8.3 L, Magnesium Level 1.9 Tn < 0.02 Last 24 hours Impressions Chest X-Ray 08/07/17 0612 Signed Impressions: Service Date/Time: Monday, August 07, 2017 06:22 - CONCLUSION: 1. Left retrocardiac atelectasis or consolidation. Some of the increased density at the left base may be secondary to an effusion. 2. Mild effusion of the right inferior lateral chest. Ramon Choudhury MD Patient has A. fib with RVR potentially pneumonia and potentially CHF. Rocephin and azithromycin started along with blood cultures. BNP added. Patient to be admitted. d/w Dr Zelaya for [facility]. 15 mg diltiazem given with good effect dropping pulse to 90s Diagnosis Primary Impression: Dehydration Additional Impressions: Atrial fibrillation with RVR Pneumonia Qualified Codes: J18.9 - Pneumonia, unspecified organism Admitting Information Admitting Physician Requests: Observation Juan Loja MD Aug 07, 2017 06:14
[2017-08-07] MEDS ORDERED: DILTIAZEM HCL 25 MG/5 ML VIAL IV ONE ×2 (06:15)
[2017-08-07] MEDS ORDERED: SODIUM CHLORIDE 0.9% FLUSH 10 ML FLUSH IVF PRN ×2 (06:15→07:00)
[2017-08-07] MEDS ORDERED: HUMIBIDDM PO (06:18)
[2017-08-07 06:26] LABS: AUTOMATED NEUTROPHIL # 6.7 TH/MM3 (1.8-7.7); BASOPHIL % 0.1 % (0.0-2.0); EOSINOPHIL % 0.5 % (0.0-4.0); HEMATOCRIT 41.6 % (39.0-51.0); LYMPH % 9.7 % (9.0-44.0); LYMPHOCYTE # 0.8 TH/MM3 (1.0-4.8); MEAN CELL VOLUME 85.4 FL (80.0-100.0); MEAN CORPUSCULAR HEMOGLOBIN 26.7 PG (27.0-34.0); MEAN CORPUSCULAR HGB CONC 31.2 % (32.0-36.0); MONO % 5.1 % (0.0-8.0); NEUT % 84.6 % (16.0-70.0); PLATELET COUNT 362 TH/MM3 (150-450); RED BLOOD COUNT 4.87 MIL/MM3 (4.50-5.90); RED CELL DISTRIBUTION WIDTH 15.2 % (11.6-17.2); WHITE BLOOD COUNT 7.9 TH/MM3 (4.0-11.0)
--- NOTE | 2017-08-07 06:35 | RADRPT ---
EXAM DATE/TIME: 08/07/2017 06:22 [place] COMPARISON: CHEST SINGLE AP, August 02, 2017, 12:37. INDICATIONS : Chest pain. MEDICAL HISTORY : A-fib. SURGICAL HISTORY : None. ENCOUNTER: Initial ACUITY: 1 day PAIN SCORE: 5/10 LOCATION: Bilateral chest FINDINGS: The cardiac silhouette is enlarged. There is hazy density seen throughout the chest. There is more fo sandeep density seen in the left retrocardiac area with silhouetting of the left hemidiaphragm. There are suspected bilateral pleural effusions being greater on the left. CONCLUSION: 1. Left retrocardiac atelectasis or consolidation. Some of the increased density at the left base may be secondary to an effusion. 2. Mild effusion of the right inferior lateral chest. Ramon Choudhury MD on August 07, 2017 at 6:32 Board Certified Radiologist. This report was verified electronically.
[2017-08-07 06:37] LABS: HEMO FLAGS DIFF FINAL
[2017-08-07 06:42] LABS: CHLORIDE 95 MEQ/L (98-107); POTASSIUM 4.8 MEQ/L (3.5-5.1); SODIUM (NA) 128 MEQ/L (136-145)
[2017-08-07 06:45] LABS: ANION GAP 13 MEQ/L (5-15); BICARBONATE 19.9 MEQ/L (21.0-32.0); BLOOD UREA NITROGEN 32 MG/DL (7-18); MAGNESIUM 1.9 MG/DL (1.5-2.5)
[2017-08-07 06:46] LABS: APTT (PATIENT) 31.9 SEC (24.3-30.1); INTERNATIONAL NORMALIZED RATIO 1.1 RATIO; PROTHROMBIN TIME - PATIENT 11.3 SEC (9.8-11.6)
[2017-08-07 06:48] LABS: GLOMERULAR FILTRATION RATE 52 ML/MIN (>89)
[2017-08-07 06:59] LABS: CREATINE KINASE 35 U/L (39-308)
[2017-08-07] MEDS ORDERED: NALOXONE HCL 0.4 MG/ML AMP IV PUSH PRN (07:00)
[2017-08-07] MEDS ORDERED: cefTRIAXone INJ 1,000 MG in SODIUM CHLORIDE 0.9% INJ 100 ML IV ONE (07:00)
[2017-08-07] MEDS ORDERED: ACETAMINOPHEN 325 MG TAB PO PRN (07:00)
[2017-08-07] MEDS ORDERED: SODIUM CHLORIDE 0.9% FLUSH 10 ML FLUSH IV FLUSH PRN (07:00)
[2017-08-07] MEDS ORDERED: ONDANSETRON HCL 4 MG/2 ML VIAL IVP PRN (07:00)
[2017-08-07] MEDS ORDERED: AZITHROMYCIN INJ 500 MG in SODIUM CHLOR 0.9% 250 ML INJ 250 ML IV ONE (07:00)
[2017-08-07] MEDS ORDERED: LACTULOSE SYRUP 20 GM/30 ML CUP PO PRN (07:00)
[2017-08-07] MEDS ORDERED: BISACODYL 10 MG SUPP RECTAL PRN (07:00)
[2017-08-07] MEDS ORDERED: SENNOSIDES 8.6 MG TAB PO PRN (07:00)
[2017-08-07] MEDS ORDERED: MAGNESIUM HYDROXIDE SUSP 30 ML CUP PO PRN (07:00)
[2017-08-07] MEDS: DOCUSATE SODIUM 50 MG/SENNA 8.6 MG TAB PO SCH ×2 (09:00→20:55)
[2017-08-07] MEDS: HEPARIN SODIUM - SQ 10,000 UNITS/ML VIAL SQ SCH ×2 (09:30→20:54)
[2017-08-07] MEDS: SODIUM CHLORIDE 0.9% FLUSH 10 ML FLUSH IV FLUSH SCH ×2 (09:30→20:55)
[2017-08-07] MEDS ORDERED: FUROSEMIDE 20 MG/2 ML VIAL IV PUSH ONE (12:30)
--- NOTE | 2017-08-07 12:41 | EKG ---
Date Performed: 08/07/2017 Time Performed: 06:05:33 PTAGE: 87 years EKG: ATRIAL FIBRILLATION WITH RAPID VENTRICULAR RESPONSE SEPTAL MYOCARDIAL INFARCTION INFERIOR M YOCARDIAL INFARCTION ABNORMAL ECG INTERPRETATION BASED ON A DEFAULT AGE OF 40 YEARS PREVIOUS TRACING : 08/02/2017 12.45 Since previous tracing, no significant change noted DOCTOR: Thanh Zuniga Interpretating Date/Time 08/07/2017 12:39:40
[2017-08-07] MEDS: METOPROLOL TARTRATE 25 MG TAB PO SCH ×2 (16:35→21:58)
--- NOTE | 2017-08-07 17:21 | HHI.HP ---
HPI Service [facility] Primary Care Physician Jorge A Bravo MD Admission Diagnosis AFib RVR; PNA Diagnoses: Chief Complaint: Shortness of breath. Travel History International Travel<30 Days: No Contact w/Intl Traveler <30 Da: No Traveled to Known Affected Are: No History of Present Illness Mr. Martin is a pleasant 87-year-old male with a history of atrial fibrillation, CHF who was brought to the hospital by his daughters due to persistent shortness of breath and palpitations. Patient has been experiencing shortness of breath for some time probably for several months but has been gradually worsening. This morning due to shortness of breath and also cough the daughters brought him to the hospital. One of the daughters gave him 3 aspirin 81 mg at home. Patient denies any chest pain, fever or chills. He denies any abdominal pain, nausea or vomiting. No changes in bowel or bladder habits. This x-ray today shows left retrocardiac atelectasis or consolidation. Sodium 128 BNP 389. Review of Systems Except as stated in HPI: all other systems reviewed are Neg Past Family Social History Past Medical History Trauma related intracranial hemorrhage in 2010 Atrial fibrillation Hypertension Past Surgical History Surgery due to brain bleed in 2010 trauma related Hernia surgery Reported Medications Walker with Front Wheels (Device) 1 Mis Mis Ea .ROUTE DIRECTED Aspirin EC (Aspirin) 81 Mg Tabdr 81 Mg PO DAILY Reported Mucinex DM (Dextromethorphan-Guaifenesin) 30-600 Mg Tab 1 Tab PO BID PRN Allergies: Coded Allergies: No Known Allergies (Verified Allergy, Unknown, 08/07/17) Family History No family history of Alzheimer's or Parkinson's. Mother had colon cancer. Social History Patient denies using tobacco or alcohol. Denies using illicit drugs. Physical Exam Vital Signs Vital Signs Date Time Temp Pulse Resp B/P (MAP) Pulse Ox O2 Delivery O2 Flow Rate FiO2 08/07/17 16:37 97.5 105 18 107/75 (86) 96 08/07/17 12:06 99 21 08/07/17 12:00 98.4 98 29 112/76 (88) 96 08/07/17 09:30 114 08/07/17 09:00 98.3 100 29 123/84 (97) 97 08/07/17 08:45 08/07/17 08:19 98.4 98 16 110/81 (91) 96 Room Air 08/07/17 06:41 88 18 106/66 (79) 95 Room Air 08/07/17 06:31 96 Room Air 08/07/17 06:31 18 96 Room Air 08/07/17 06:31 96 Room Air 08/07/17 06:22 97.7 153 20 142/102 (115) 96 Physical Exam GENERAL: This is a well-nourished, well-developed patient, in no apparent distress. SKIN: No rashes, ecchymoses or lesions. Warm and dry. HEAD: Atraumatic. Normocephalic. No temporal or scalp tenderness. EYES: Pupils equal round and reactive. No injection or drainage. ENT: Nose without bleeding, purulent drainage or septal hematoma. Airway patent. NECK: Trachea midline. No lymphadenopathy. Supple, nontender, no meningeal signs. CARDIOVASCULAR: Irregularly irregular, tachycardic without murmurs, gallops, or rubs. No JVD. RESPIRATORY: Clear to auscultation. Breath sounds equal bilaterally. No wheezes , rales, or rhonchi. GASTROINTESTINAL: Abdomen soft, non-tender, nondistended. No guarding. MUSCULOSKELETAL: Extremities without clubbing, cyanosis, or edema. NEUROLOGICAL: Awake and alert. Cranial nerves II through XII intact. No focal neurological deficits. Normal speech. Laboratory Laboratory Tests Test 08/07/17 06:10 08/07/17 06:55 White Blood Count 7.9 Red Blood Count 4.87 Hemoglobin 13.0 Hematocrit 41.6 Mean Corpuscular Volume 85.4 Mean Corpuscular Hemoglobin 26.7 Mean Corpuscular Hemoglobin Concent 31.2 Red Cell Distribution Width 15.2 Platelet Count 362 Mean Platelet Volume 7.3 Neutrophils (%) (Auto) 84.6 Lymphocytes (%) (Auto) 9.7 Monocytes (%) (Auto) 5.1 Eosinophils (%) (Auto) 0.5 Basophils (%) (Auto) 0.1 Neutrophils # (Auto) 6.7 Lymphocytes # (Auto) 0.8 Monocytes # (Auto) 0.4 Eosinophils # (Auto) 0.0 Basophils # (Auto) 0.0 CBC Comment DIFF FINAL Differential Comment Prothrombin Time 11.3 Prothromb Time International Ratio 1.1 Activated Partial Thromboplast Time 31.9 Blood Urea Nitrogen 32 Creatinine 1.30 Random Glucose 162 Calcium Level 8.3 Magnesium Level 1.9 Sodium Level 128 Potassium Level 4.8 Chloride Level 95 Carbon Dioxide Level 19.9 Anion Gap 13 Estimat Glomerular Filtration Rate 52 Total Creatine Kinase 35 Troponin I LESS THAN 0.02 B-Type Natriuretic Peptide 389 Date/Time Source Procedure Growth Status 08/07/17 07:00 Blood Peripheral Aerobic Blood Culture Pending Received 08/07/17 07:00 Blood Peripheral Anaerobic Blood Culture Pending Received Result Diagram: 08/07/1760908/07/17609 Imaging Last Impressions Chest X-Ray 08/07/17611 Signed Impressions: Service Date/Time: Monday, August 07, 2017 06:22 - CONCLUSION: 1. Left retrocardiac atelectasis or consolidation. Some of the increased density at the left base may be secondary to an effusion. 2. Mild effusion of the right inferior lateral chest. Ramon Cohudhury MD Caprini VTE Risk Assessment Caprini VTE Risk Assessment: Mod/High Risk (score >= 2) Caprini Risk Assessment Model Point Value = 1 Point Value = 2 Point Value = 3 Point Value = 5 Age 41-60 Minor surgery BMI > 25 kg/m2 Swollen legs Varicose veins or History of unexplained or recurrent spontaneous Oral contraceptives or hormone replacement Sepsis (< 1 month) Serious lung disease, including pneumonia (< 1 month) Abnormal pulmonary function Acute myocardial infarction Congestive heart failure (< 1 month) History of inflammatory bowel disease Medical patient at bed rest Age 61-74 Arthroscopic surgery Major open surgery (> 45 min) Laparoscopic surgery (> 45 min) Malignancy Confined to bed (> 72 hours) Immobilizing plaster cast Central venous access Age >= 75 History of VTE Family history of VTE Factor V Leiden Prothrombin [id number] Lupus anticoagulant Anticardiolipin antibodies Elevated serum homocysteine Heparin-induced thrombocytopenia Other congenital or acquired thrombophilia Stroke (< 1 month) Elective arthroplasty Hip, pelvis, or leg fracture Acute spinal cord injury (< 1 month) Prophylaxis Regimen Total Risk Factor Score Risk Level Prophylaxis Regimen 0-1 Low Early ambulation 2 Moderate Order ONE of the following: *Sequential Compression Device (SCD) *Heparin 5000 units SQ BID 3-4 Higher Order ONE of the following medications: *Heparin 5000 units SQ TID *Enoxaparin/Lovenox 40 mg SQ daily (WT < 150 kg, CrCl > 30 mL/min) *Enoxaparin/Lovenox 30 mg SQ daily (WT < 150 kg, CrCl > 10-29 mL/min) *Enoxaparin/Lovenox 30 mg SQ BID (WT < 150 kg, CrCl > 30 mL/min) AND/OR *Sequential Compression Device (SCD) 5 or more Highest Order ONE of the following medications: *Heparin 5000 units SQ TID (Preferred with Epidurals) *Enoxaparin/Lovenox 40 mg SQ daily (WT < 150 kg, CrCl > 30 mL/min) *Enoxaparin/Lovenox 30 mg SQ daily (WT < 150 kg, CrCl > 10-29 mL/min) *Enoxaparin/Lovenox 30 mg SQ BID (WT < 150 kg, CrCl > 30 mL/min) AND *Sequential Compression Device (SCD) Assessment and Plan Problem List: (1) Acute exacerbation of CHF (congestive heart failure) ICD Code: I50.9 - Heart failure, unspecified (2) Atrial fibrillation with RVR ICD Code: I48.91 - Unspecified atrial fibrillation Status: Acute (3) Pneumonia ICD Code: J18.9 - Pneumonia, unspecified organism Status: Acute Assessment and Plan Mr. Martin is a pleasant 87-year-old male with a history of hypertension, atrial fibrillation, CHF who presented to the emergency department today due to shortness of breath that has been going on for sometime but much worse since this morning on 08/07/2017. Patient has also been coughing today. Chest x-ray indicated left-sided atelectasis or consolidation. Mild effusion on the right inferior lateral as well. - Possible acute congestive heart failure exacerbation - BNP elevated to 389. - We'll start patient on Lasix 20 mg IV twice a day. - Echocardiogram on 08/03/2017 indicates ejection fraction 50% - Possible pneumonia - Continue ceftriaxone 1 g daily and add Levaquin 500 mg daily. - Atrial fibrillation - [id number] score 4 (age > 74, HTN, CHF). - Start Metoprolol 25mg Q8hrs. - Patient is currently on aspirin 81 mg per day habilitation specialist ( Dr. Mcgee). - However, I believe patient would benefit from Apixaban instead. I would recommend Apixaban 2.5mg BID. Full code. Heparin SQ. Problem Qualifiers (1) Pneumonia: Qualified Codes: J18.9 - Pneumonia, unspecified organism Sang Loomis DO Aug 07, 2017 5:21 pm
[2017-08-07] MEDS: FUROSEMIDE 20 MG/2 ML VIAL IV PUSH SCH (18:41)
[2017-08-08] VITALS (7 sets, daily range): BP systolic 104–121; BP diastolic 63–78; PULSE 70–83; RESP 20–24; TEMP 96.7–98.9; O2SAT 94–96
[2017-08-08 05:00] LABS: AUTOMATED NEUTROPHIL # 4.2 TH/MM3 (1.8-7.7); BASOPHIL % 0.2 % (0.0-2.0); EOSINOPHIL % 0.5 % (0.0-4.0); HEMATOCRIT 32.8 % (39.0-51.0); HEMO FLAGS DIFF FINAL; LYMPH % 9.7 % (9.0-44.0); LYMPHOCYTE # 0.5 TH/MM3 (1.0-4.8); MEAN CELL VOLUME 84.4 FL (80.0-100.0); MEAN CORPUSCULAR HEMOGLOBIN 27.2 PG (27.0-34.0); MEAN CORPUSCULAR HGB CONC 32.2 % (32.0-36.0); MONO % 8.5 % (0.0-8.0); NEUT % 81.1 % (16.0-70.0); PLATELET COUNT 254 TH/MM3 (150-450); RED BLOOD COUNT 3.89 MIL/MM3 (4.50-5.90); RED CELL DISTRIBUTION WIDTH 14.6 % (11.6-17.2); WHITE BLOOD COUNT 5.1 TH/MM3 (4.0-11.0)
[2017-08-08 05:11] LABS: POTASSIUM 4.2 MEQ/L (3.5-5.1)
[2017-08-08 05:15] LABS: BICARBONATE 24.6 MEQ/L (21.0-32.0)
[2017-08-08] MEDS: METOPROLOL TARTRATE 25 MG TAB PO SCH ×3 (06:31→20:16)
[2017-08-08] MEDS ORDERED: AZITHROMYCIN INJ 500 MG in SODIUM CHLOR 0.9% 250 ML INJ 250 ML IV ONE ×2 (08:00→09:00)
[2017-08-08] MEDS: cefTRIAXone INJ 1,000 MG in SODIUM CHLORIDE 0.9% INJ 100 ML IV SCH (09:10)
[2017-08-08] MEDS: HEPARIN SODIUM - SQ 10,000 UNITS/ML VIAL SQ SCH ×2 (09:11→18:14)
[2017-08-08] MEDS: FUROSEMIDE 20 MG/2 ML VIAL IV PUSH SCH ×2 (09:12→18:14)
[2017-08-08] MEDS: DOCUSATE SODIUM 50 MG/SENNA 8.6 MG TAB PO SCH ×2 (09:12→20:16)
[2017-08-08] MEDS: SODIUM CHLORIDE 0.9% FLUSH 10 ML FLUSH IV FLUSH SCH ×2 (09:12→20:16)
[2017-08-08] MEDS: LEVOFLOXACIN 500 MG TAB PO SCH (10:16)
--- NOTE | 2017-08-08 18:18 | HHI.PR ---
Subjective Remarks Follow-up for acute CHF exacerbation, possible pneumonia, atrial fibrillation. Patient is currently doing well. However family reports that overnight he was very confused and talking to himself. No fever or chills. Objective Vitals Vital Signs Date Time Temp Pulse Resp B/P (MAP) Pulse Ox O2 Delivery O2 Flow Rate FiO2 08/08/17 16:00 97.7 79 24 117/71 (86) 96 08/08/17 16:00 75 08/08/17 14:29 81 104/63 (77) 08/08/17 12:00 73 08/08/17 12:00 98.5 78 24 113/75 (88) 94 08/08/17 08:00 78 08/08/17 08:00 97.7 83 20 106/71 (83) 96 08/08/17 04:00 96.7 77 20 121/72 (88) 94 08/08/17 00:00 98.6 78 22 119/78 (92) 96 08/07/17 20:00 98.3 80 22 118/74 (89) 96 08/07/17 20:00 81 I/O 08/07/17 08/07/17 08/07/17 08/08/17 08/08/17 08/08/17 07:00 15:00 23:00 07:00 15:00 23:00 Intake Total 250 ml 100 ml 200 ml 350 ml Output Total 1125 ml 150 ml Balance 250 ml 100 ml -925 ml 350 ml -150 ml Intake Oral 200 ml IV Total 250 ml 100 ml 350 ml Output Urine Total 1125 ml 150 ml # Voids 3 8 2 Result Diagram: 08/08/17 0435 08/08/17 043 Imaging Last Impressions Chest X-Ray 08/07/17611 Signed Impressions: Service Date/Time: Monday, August 07, 2017 06:22 - CONCLUSION: 1. Left retrocardiac atelectasis or consolidation. Some of the increased density at the left base may be secondary to an effusion. 2. Mild effusion of the right inferior lateral chest. Ramon Choudhury MD Objective Remarks GENERAL: Alert, oriented to person, place, month and year. He knows the name of the president. SKIN: Warm and dry. HEAD: Normocephalic. EYES: No scleral icterus. No injection or drainage. NECK: Supple, trachea midline. No JVD or lymphadenopathy. CARDIOVASCULAR: Regular rate and rhythm without murmurs, gallops, or rubs. RESPIRATORY: Breath sounds equal bilaterally. No accessory muscle use. GASTROINTESTINAL: Abdomen soft, non-tender, nondistended. MUSCULOSKELETAL: No cyanosis, or edema. BACK: Nontender without obvious deformity. No CVA tenderness. Procedures None A/P Problem List: (1) Acute exacerbation of CHF (congestive heart failure) ICD Code: I50.9 - Heart failure, unspecified (2) Atrial fibrillation with RVR ICD Code: I48.91 - Unspecified atrial fibrillation Status: Acute (3) Pneumonia ICD Code: J18.9 - Pneumonia, unspecified organism Status: Acute Assessment and Plan Mr. Martin is a pleasant 87-year-old male with a history of hypertension, atrial fibrillation, CHF who presented to the emergency department today due to shortness of breath that has been going on for sometime but much worse since this morning on 08/07/2017. Patient has also been coughing today. Chest x-ray indicated left-sided atelectasis or consolidation. Mild effusion on the right inferior lateral as well. - Possible acute congestive heart failure exacerbation - BNP elevated to 389. - We'll continue patient on Lasix 20 mg IV twice a day. - Echocardiogram on 08/03/2017 indicates ejection fraction 50% - Possible pneumonia - Continue ceftriaxone 1 g daily and Levaquin 500 mg daily. - Atrial fibrillation - [id number] score 4 (age > 74, HTN, CHF). - Continue Metoprolol 25mg Q8hrs. - Patient is currently on aspirin 81 mg per upholstery trimmer (Dr. Mcgee). - However, I believe patient would benefit from Apixaban instead. I would recommend Apixaban 2.5mg BID. - Deconditioning - Confusion - Night time confusion maybe related to . - Will get PT to see patient. He may need rehab placement. Full code. Heparin SQ. Problem Qualifiers (1) Pneumonia: Qualified Codes: J18.9 - Pneumonia, unspecified organism Sang Loomis DO Aug 08, 2017 6:18 pm
[2017-08-09] VITALS (8 sets, daily range): BP systolic 84–119; BP diastolic 55–73; PULSE 68–76; RESP 22–33; TEMP 98–98.1; O2SAT 94–96
[2017-08-09] MEDS: METOPROLOL TARTRATE 25 MG TAB PO SCH ×2 (06:13→14:00)
[2017-08-09] MEDS: cefTRIAXone INJ 1,000 MG in SODIUM CHLORIDE 0.9% INJ 100 ML IV SCH (08:28)
[2017-08-09] MEDS: DOCUSATE SODIUM 50 MG/SENNA 8.6 MG TAB PO SCH (08:29)
[2017-08-09] MEDS: HEPARIN SODIUM - SQ 10,000 UNITS/ML VIAL SQ SCH (08:29)
[2017-08-09] MEDS: SODIUM CHLORIDE 0.9% FLUSH 10 ML FLUSH IV FLUSH SCH (08:29)
[2017-08-09] MEDS: FUROSEMIDE 20 MG/2 ML VIAL IV PUSH SCH (08:29)
--- NOTE | 2017-08-09 10:38 | RADRPT ---
EXAM DATE/TIME: 08/09/2017 10:23 [facility] COMPARISON: CHEST SINGLE AP, August 07, 2017, 6:22. INDICATIONS : Cough. MEDICAL HISTORY : Chronic obstructive pulmonary disease. Hypertension A-fib. Brain bleed. SURGICAL HISTORY : Inguinal hernia repair. Tonsillectomy. Knee. ENCOUNTER: Subsequent ACUITY: 3 days PAIN SCORE: 0/10 LOCATION: chest FINDINGS: A single view of the chest demonstrates bilateral pleural effusions left greater than right. Mild pas sive atelectasis left lung base. Upper lungs are clear.. The cardiomediastinal contours are unremark able. Osseous structures are intact. CONCLUSION: Bilateral pleural effusions left greater than right with some passive atelectasis left lung base. Enzo Rider MD on August 09, 2017 at 10:35 Board Certified Radiologist. This report was verified electronically.
[2017-08-09] MEDS: LEVOFLOXACIN 500 MG TAB PO SCH (11:00)
[2017-08-09] MEDS ORDERED: METO25TA3 PO (11:42)
[2017-08-09] MEDS ORDERED: LEVA500T33 PO (11:42)
[2017-08-09] MEDS ORDERED: TORS5TAB2 PO (11:42)
--- NOTE | 2017-08-09 11:44 | HHI.DS ---
Discharge Summary Admission Date Aug 07, 2017 at 3:23 pm Discharge Date: Aug 09, 2017 Admitting Diagnosis AFib RVR; PNA (1) Acute exacerbation of CHF (congestive heart failure) ICD Code: I50.9 - Heart failure, unspecified Diagnosis: Principal (2) Atrial fibrillation with RVR ICD Code: I48.91 - Unspecified atrial fibrillation Diagnosis: Principal Status: Acute (3) Pneumonia ICD Code: J18.9 - Pneumonia, unspecified organism Diagnosis: Principal Status: Acute Procedures None Brief History - From Admission Mr. Martin is a pleasant 87-year-old male with a history of atrial fibrillation, CHF who was brought to the hospital by his daughters due to persistent shortness of breath and palpitations. Patient has been experiencing shortness of breath for some time probably for several months but has been gradually worsening. This morning due to shortness of breath and also cough the daughters brought him to the hospital. One of the daughters gave him 3 aspirin 81 mg at home. Patient denies any chest pain, fever or chills. He denies any abdominal pain, nausea or vomiting. No changes in bowel or bladder habits. This x-ray today shows left retrocardiac atelectasis or consolidation. Sodium 128 BNP 389. CBC/BMP: 08/08/17 0435 08/08/17 0435 Significant Findings Laboratory Tests Test 08/07/17 06:10 08/07/17 06:55 08/08/17 04:35 Mean Corpuscular Hemoglobin 26.7 PG (27.0-34.0) Mean Corpuscular Hemoglobin Concent 31.2 % (32.0-36.0) Neutrophils (%) (Auto) 84.6 % (16.0-70.0) 81.1 % (16.0-70.0) Lymphocytes # (Auto) 0.8 TH/MM3 (1.0-4.8) 0.5 TH/MM3 (1.0-4.8) Activated Partial Thromboplast Time 31.9 SEC (24.3-30.1) Blood Urea Nitrogen 32 MG/DL (7-18) 33 MG/DL (7-18) Random Glucose 162 MG/DL (74-106) Calcium Level 8.3 MG/DL (8.5-10.1) 8.3 MG/DL (8.5-10.1) Sodium Level 128 MEQ/L (136-145) 130 MEQ/L (136-145) Chloride Level 95 MEQ/L (98-107) 97 MEQ/L (98-107) Carbon Dioxide Level 19.9 MEQ/L (21.0-32.0) Estimat Glomerular Filtration Rate 52 ML/MIN (>89) 58 ML/MIN (>89) Total Creatine Kinase 35 U/L (39-308) Troponin I LESS THAN 0.02 NG/ML B-Type Natriuretic Peptide 389 PG/ML (0-100) Red Blood Count 3.89 MIL/MM3 (4.50-5.90) Hemoglobin 10.6 GM/DL (13.0-17.0) Hematocrit 32.8 % (39.0-51.0) Mean Platelet Volume 6.9 FL (7.0-11.0) Monocytes (%) (Auto) 8.5 % (0.0-8.0) Imaging Last Impressions Chest X-Ray 08/09/17 0000 Signed Impressions: Service Date/Time: July 10:23 - CONCLUSION: Bilateral pleural effusions left greater than right with some passive atelectasis left lung base. Enzo Rider MD PE at Discharge GENERAL: Alert, oriented to person, place, month and year. He knows the name of the president. SKIN: Warm and dry. HEAD: Normocephalic. EYES: No scleral icterus. No injection or drainage. NECK: Supple, trachea midline. No JVD or lymphadenopathy. CARDIOVASCULAR: Regular rate and rhythm without murmurs, gallops, or rubs. RESPIRATORY: Breath sounds equal bilaterally. No accessory muscle use. GASTROINTESTINAL: Abdomen soft, non-tender, nondistended. MUSCULOSKELETAL: No cyanosis, or edema. BACK: Nontender without obvious deformity. No CVA tenderness. Pt update on day of discharge Patient is doing well today. Sitting in his chair. No acute concerns. Family at bedside. Hospital Course Mr. Martin is a pleasant 87-year-old male with a history of hypertension, atrial fibrillation, CHF who presented to the emergency department today due to shortness of breath that has been going on for sometime but much worse since this morning on 08/07/2017. Patient has also been coughing today. Chest x-ray indicated left-sided atelectasis or consolidation. Mild effusion on the right inferior lateral as well. - Possible acute congestive heart failure exacerbation - BNP elevated to 389. - Continued patient on Lasix 20 mg IV twice a day. Will continue Torsemide on discharge. - Echocardiogram on 08/03/2017 indicates ejection fraction 50% - Possible pneumonia - Levaquin 500 mg daily upon discharge. - Atrial fibrillation - [id number] score 4 (age > 74, HTN, CHF). - Continue Metoprolol 25mg Q8hrs. - Patient is currently on aspirin 81 mg per forming machine upkeep mechanic (Dr. Mcgee). - However, I believe patient would benefit from Apixaban instead. I would recommend Apixaban 2.5mg BID. - Patient will follow up with Cardiology in the outpatient setting and will discuss regarding anti-coagulation. - Deconditioning - Confusion - Much improved. No acute event overnight. Full code. Heparin SQ. Will discharge patient home with home health. Pt Condition on Discharge: Good Discharge Disposition: Disch w/ Home Health Serv Discharge Time: > 30 minutes Discharge Instructions DIET: Follow Instructions for: As Tolerated, No Restrictions Activities you can perform: Regular-No Restrictions Follow up Referrals: Cardiology - 2 Weeks with Hien Kendrick MD PCP Follow-up - 2 Weeks New Medications: Torsemide (Torsemide) 5 Mg Tab 5 MG PO BID for Heart, #60 TAB 0 Refills Levofloxacin (Levaquin) 500 Mg Tablet 500 MG PO DAILY@1100 for Infection, #6 TAB Metoprolol Tartrate (Metoprolol Tartrate) 25 Mg Tab 25 MG PO Q12HR for Heart, #60 TAB 3 Refills Continued Medications: Aspirin DR (Aspirin EC) 81 Mg Tabdr 81 MG PO DAILY for prevent stroke, #30 TAB 0 Refills Dextromethorphan-Guaifenesin (Mucinex DM) 30-600 Mg Tab 1 TAB PO BID PRN for CHEST CONGESTION AND/OR COUGH, TAB 0 Refills Sang Loomis DO Aug 09, 2017 11:44
--- NOTE | 2017-08-09 11:58 | HHI.FF ---
Face to Face Verification Diagnosis: (1) Acute exacerbation of CHF (congestive heart failure) (2) Pneumonia (3) Atrial fibrillation with RVR Physical Therapy Order: Evaluate and Treat, Improve ambulation, Strength and gait training Home Health Nursing Order: Medical education Signs/symptoms of disease process Nursing assessment with vital signs I have seen patient Kamar Martin on 08/09/17. My clinical findings support the need for the requested home health care services because: Ltd mobility - disease progression Patient has SOB Deconditioned w/ increased weakness Limited ability to care for self Need for psychosocial assistance Impaired cognition/judgement High risk of falls Infection w/ risk of complications I certify that my clinical findings support that this patient is homebound because: Impaired cognitive ability/safety Unsteady gait/balance Unsafe to leave home unassisted Need for psychosocial assistance Unable to use public transportation Sang Loomis DO Aug 09, 2017 11:58 am
== END 2017-08-09 14:55 | disposition home health service (06) | DRG 291 ==
LOC: PHED 06:03 → PHEDA 06:58 → PHICU 08:55 → OBSVTOIN 15:23
PROVIDERS: ADMIT Hospitalist; ATTEND Hospitalist
DX: I50.9 Heart failure, unspecified (principal); J18.9 Pneumonia, unspecified organism; E86.0 Dehydration; J44.0 Chronic obstructive pulmonary disease with (acute) lower respiratory infection; I48.91 Unspecified atrial fibrillation; J98.11 Atelectasis; H91.93 Unspecified hearing loss, bilateral
CPT/HCPCS: 71010; 80048; 82550; 83735; 83880; 84484; 85025; 85610; 85730; 87040; 93005; 96365; 96366; 96372; 96375; G0378; J0456; J0696; J1644; J1940; J7050

== ENCOUNTER 2017-08-17 09:26 | Emergency (ER) | payer MEDICARE, BC ==
[~2017-08-17] VITALS: Ht 190.5 cm; Wt 73.0 kg
[~2017-08-17 09:26] MED LIST changes: -CLAR10TA7 PO; +HUMIBIDDM PO; +LEVA500T33 PO; +METO25TA3 PO; +TORS5TAB2 PO
[2017-08-17 09:27] VITALS: BP 113/71; PULSE 76; RESP 18; TEMP 97.7; O2SAT 96
--- NOTE | 2017-08-17 10:00 | PD ---
HPI Chief Complaint: Fall Time Seen by Provider: 09:35 Travel History International Travel<30 days: No Contact w/Intl Traveler<30days: No Traveled to known affect area: No History of Present Illness HPI 87 y/o male at approximately 2 AM this morning had a trip and fall at his assisted living facility. His feeling her states that she went to check on him this morning and given his history of head bleed and that he might need sutures she wanted to get him checked out. She confirms he recently was in the hospital. She states he is only on a baby aspirin. Patient denies any complaints other than the cut to his head. The patient's family member also notes that he has an abrasion to his lower buttock area from the fall. History is mainly supplemented by the family member and therefore limited as she did not see the fall but cannot report. PFSH Past Medical History Hx Anticoagulant Therapy: Yes (ASA 81 MG) Arthritis: No Asthma: No Atrial Fibrillation: Yes Blood Disorders: No Anxiety: No Depression: No Heart Rhythm Problems: Yes (a fib dx 05/2017) Cancer: No Cardiovascular Problems: No High Cholesterol: No Chemotherapy: No Chest Pain: No Congestive Heart Failure: No COPD: Yes Cerebrovascular Accident: No Diabetes: No Diminished Hearing: Yes (BILATERAL) Endocrine: No Gastrointestinal Disorders: No Genitourinary: No Headaches: No Immune Disorder: No Implanted Vascular Access Dvce: No Musculoskeletal: No Neurologic: No Psychiatric: No Reproductive: No Respiratory: No Immunizations Current: Yes Myocardial Infarction: No Radiation Therapy: No Seizures: No Sleep Apnea: No Thyroid Disease: No Past Surgical History Abdominal Surgery: No AICD: No Arteriovenous Shunt: No Cardiac Surgery: No Ear Surgery: No Endocrine Surgery: No Eye Surgery: No Genitourinary Surgery: No Gynecologic Surgery: No Insulin Pump: No Joint Replacement: No Neurologic Surgery: Yes (BRAIN BLEED) Oral Surgery: No Pacemaker: No Thoracic Surgery: No Tonsillectomy: Yes (1938) Other Surgery: Yes (1989--BILATERAL INGUINAL HERNIA) Social History Alcohol Use: No Tobacco Use: No Substance Use: No Allergies-Medications (Allergen,Severity, Reaction): Coded Allergies: No Known Allergies (Verified Allergy, Unknown, 08/17/17) Reported Meds & Prescriptions Reported Meds & Active Scripts Active Torsemide 5 Mg Tab 5 Mg PO BID Metoprolol Tartrate 25 Mg Tab 25 Mg PO Q12HR Walker with Front Wheels (Device) 1 Mis Mis Ea .ROUTE DIRECTED Aspirin EC (Aspirin) 81 Mg Tabdr 81 Mg PO DAILY Review of Systems ROS Limitations: Poor Historian Except as stated in HPI: all other systems reviewed are Neg Physical Exam Exam Limitations: Poor Historian Narrative GENERAL: Well-nourished, well-developed patient. SKIN: Warm and dry. Abrasion noted to sacrum without laceration HEAD: Normocephalic and to left supraorbital area he has a simple laceration noted with approximately 2 cm EYES: No injection or drainage. Extraocular movement intact ENT: No nasal drainage noted. No septal hematoma NECK: Supple, trachea midline. No pain in midline with palpation and range of motion CARDIOVASCULAR: Regular rate and rhythm RESPIRATORY: Breath sounds equal bilaterally at apices. No accessory muscle use. GASTROINTESTINAL: Abdomen soft, non-tender, nondistended. EXTREMITIES: No edema. BACK: Nontender without obvious deformity. NEUROLOGICAL: Awake. Motor and sensory grossly within normal limits. Normal speech. Data Data Last Documented VS Vital Signs Date Time Temp Pulse Resp B/P (MAP) Pulse Ox O2 Delivery O2 Flow Rate FiO2 08/17/17 09:27 97.7 76 18 113/71 (85) [address] Brain W/O Iv Contrast(Rout) (08/17/17 ) Pelvis, Ap Only (Routine) (08/17/17 ) Ed Discharge Order (08/17/17 10:40) [facility] Medical Decision Making Medical Screen Exam Complete: Yes Emergency Medical Condition: Yes Medical Record Reviewed: Yes (past history confirmed, recent admission reviewed ) Interpretation(s) Last 24 hours Impressions Pelvis X-Ray 08/17/17 0000 Signed Impressions: Service Date/Time: Thursday, August 17, 2017 10:05 - CONCLUSION: 1. No acute fracture or dislocation. Wang Dumont MD Head CT 08/17/17 0000 Signed Impressions: Service Date/Time: Thursday, August 17, 2017 09:53 - CONCLUSION: 1. Mild left periorbital soft tissue swelling. 2. No evidence of acute fracture. 3. No evidence of acute infarct, hemorrhage, mass or edema. 4. Status post right frontal parietal craniotomy. Renato Crews MD Differential Diagnosis Head bleed, fracture, laceration Narrative Course Will check CT brain and pelvic x-ray and have mid-level repair laceration. Patient and family member agree to workup as ordered trauma imaging no acute, Patient denies any new complaints, all questions answered. Patient knows that follow up is incumbent on them and to return to the emergency room immediately if new or worsening symptoms develop. Patient given strict return precautions, vitals reviewed and are normal, agrees to further workup as an outpatient. Diagnosis Primary Impression: Facial laceration Qualified Codes: S01.81XA - Laceration without foreign body of other part of head, initial encounter Additional Impression: Fall Qualified Codes: W19.XXXA - Unspecified fall, initial encounter Patient Instructions: General Instructions Additional Instructions: tylenol as needed, follow with primary this week, return as needed, suture removal in 5-7 days Med/Other Pt SpecificInfo: No Change to Meds Disposition: 01 DISCHARGE HOME Condition: Stable Celia Mcghee MD Aug 17, 2017 10:00
--- NOTE | 2017-08-17 10:26 | RADRPT ---
EXAM DATE/TIME: 08/17/2017 09:53 [facility] COMPARISON: No previous studies available for comparison. INDICATIONS : Fall, left eye contusion. RADIATION DOSE: 59.38 CTDIvol (mGy) MEDICAL HISTORY : Cardiovascular disease. Chronic obstructive pulmonary disease. SURGICAL HISTORY : Craniotomy. ENCOUNTER: Initial ACUITY: 1 day PAIN SCALE: 5/10 LOCATION: Left cranial TECHNIQUE: Multiple contiguous axial images were obtained of the head. Using automated exposure control and adj ustment of the mA and/or kV according to patient size, radiation dose was kept as low as reasonably a chievable to obtain optimal diagnostic quality images. DICOM format image data is available electro nically for review and comparison. FINDINGS: CEREBRUM: The CSF spaces are enlarged. No evidence of midline shift, mass lesion, hemorrhage or acute infarctio n. No extra-axial fluid collections are seen. POSTERIOR FOSSA: The cerebellum and brainstem are intact. The 4th ventricle is midline. The cerebellopontine angle i s unremarkable. EXTRACRANIAL: Mild left-sided periorbital soft tissue swelling is noted. SKULL: Craniotomy defect is identified in the right frontoparietal region. No evidence of skull fracture. CONCLUSION: 1. Mild left periorbital soft tissue swelling. 2. No evidence of acute fracture. 3. No evidence of acute infarct, hemorrhage, mass or edema. 4. Status post right frontal parietal craniotomy. Renato Crews MD on August 17, 2017 at 10:22 Board Certified Radiologist. This report was verified electronically.
--- NOTE | 2017-08-17 10:34 | RADRPT ---
EXAM DATE/TIME: 08/17/2017 10:05 [facility] COMPARISON: No previous studies available for comparison. INDICATIONS : Pelvic pain post fall MEDICAL HISTORY : None. SURGICAL HISTORY : None. ENCOUNTER: Initial ACUITY: 1 day PAIN SCORE: 6/10 LOCATION: Left pelvis FINDINGS: A single frontal view of the pelvis demonstrates no evidence of fracture. The bony pelvic ring is in tact. Bony mineralization is normal. The soft tissues are intact. CONCLUSION: 1. No acute fracture or dislocation. Wang Dumont MD on August 17, 2017 at 10:31 Board Certified Radiologist. This report was verified electronically.
[2017-08-17 10:58] VITALS: BP 110/67
== END 2017-08-17 10:59 | disposition home or self-care (01) ==
LOC: PHED 09:26
DX: S01.81XA Laceration without foreign body of other part of head, initial encounter (principal); J44.9 Chronic obstructive pulmonary disease, unspecified; I25.10 Atherosclerotic heart disease of native coronary artery without angina pectoris; I48.91 Unspecified atrial fibrillation; W01.0XXA Fall on same level from slipping, tripping and stumbling without subsequent striking against object, initial encounter; Y92.099 Unspecified place in other non-institutional residence as the place of occurrence of the external cause; Z79.82 Long term (current) use of aspirin; Z79.899 Other long term (current) drug therapy
CPT/HCPCS: 70450; 72170; 99284

== ENCOUNTER 2017-09-16 12:54 | Inpatient (IN) | payer MEDICARE, BC ==
[2017-09-16] VITALS (10 sets, daily range): BP systolic 112–194; BP diastolic 67–114; PULSE 114–177; RESP 18–20; TEMP 99.4–99.7; O2SAT 96–99
[~2017-09-16] VITALS: Ht 188 cm; Wt 67.1 kg
[~2017-09-16 12:54] MED LIST changes: -HUMIBIDDM PO; -LEVA500T33 PO
[2017-09-16] MEDS ORDERED: SODIUM CHLORIDE 0.9% FLUSH 10 ML FLUSH IV FLUSH PRN ×2 (15:15→19:15)
[2017-09-16] MEDS ORDERED: SODIUM CHLORIDE 0.9% FLUSH 10 ML FLUSH IVF PRN (15:15)
--- NOTE | 2017-09-16 15:27 | PD ---
HPI Chief Complaint: Fall Time Seen by Provider: 15:06 Travel History International Travel<30 days: No Contact w/Intl Traveler<30days: No Traveled to known affect area: No History of Present Illness HPI 87-year-old male brought in by EMS status post fall in the shower early this morning at [facility]. Patient is now complaining of low back pain and pain along the left lateral ribs. He denies hitting his head or loss of consciousness. He denies neck pain. Maintain complaints of pain is in the low back and ribs. He denies shortness of breath, nausea or vomiting. Pain is currently 9 out 10. He has no known drug allergies. PFSH Past Medical History Hx Anticoagulant Therapy: Yes (ASA 81 MG) Arthritis: No Asthma: No Atrial Fibrillation: Yes Blood Disorders: No Anxiety: No Depression: No Heart Rhythm Problems: Yes (a fib dx 05/2017) Cancer: No Cardiovascular Problems: No High Cholesterol: No Chemotherapy: No Chest Pain: No Congestive Heart Failure: No COPD: Yes Cerebrovascular Accident: No Diabetes: No Diminished Hearing: Yes (BILATERAL) Endocrine: No Gastrointestinal Disorders: No Genitourinary: No Headaches: No Immune Disorder: No Implanted Vascular Access Dvce: No Musculoskeletal: No Neurologic: No Psychiatric: No Reproductive: No Respiratory: No Immunizations Current: Yes Myocardial Infarction: No Radiation Therapy: No Seizures: No Sleep Apnea: No Thyroid Disease: No Past Surgical History Abdominal Surgery: No AICD: No Arteriovenous Shunt: No Cardiac Surgery: No Ear Surgery: No Endocrine Surgery: No Eye Surgery: No Genitourinary Surgery: No Gynecologic Surgery: No Insulin Pump: No Joint Replacement: No Neurologic Surgery: Yes (BRAIN BLEED) Oral Surgery: No Pacemaker: No Thoracic Surgery: No Tonsillectomy: Yes (1938) Other Surgery: Yes (1989--BILATERAL INGUINAL HERNIA) Social History Alcohol Use: No Tobacco Use: No Substance Use: No Allergies-Medications (Allergen,Severity, Reaction): Coded Allergies: No Known Allergies (Verified Allergy, Unknown, 09/16/17) Reported Meds & Prescriptions Reported Meds & Active Scripts Active Walker with Front Wheels (Device) 1 Mis Mis Ea .ROUTE DIRECTED Aspirin EC (Aspirin) 81 Mg Tabdr 81 Mg PO DAILY Review of Systems Except as stated in HPI: all other systems reviewed are Neg General / Constitutional: No: Fever Eyes: No: Visual changes HENT: No: Headaches Cardiovascular: No: Chest Pain or Discomfort Respiratory: Positive: Pleuritic Pain, No: Cough, Shortness of Breath, Wheezing Gastrointestinal: No: Abdominal Pain Genitourinary: No: Dysuria Musculoskeletal: Positive: Myalgias, Arthralgias, Limited ROM, Pain Skin: No Rash Neurologic: Positive: Weakness, Coordination Problem, Ataxia, No: Focal Abnormalities, Tremor, Headache, Change in Mentation, Slurred Speech, Paresthesia, Incontinence, Seizures, Sensory Disturbance Psychiatric: No: Depression Endocrine: No: Polydipsia Hematologic/Lymphatic: No: Easy Bruising Physical Exam Narrative GENERAL: Patient is in moderate discomfort. SKIN: Warm and dry. Normal color. Decreased turgor. HEAD: Atraumatic. Normocephalic. Nontender. EYES: Pupils equal and round. No scleral icterus. No injection or drainage. ENT: No nasal bleeding or discharge. Mucous membranes pink and moist. No dental injury. Pharynx is clear. Airway is patent. NECK: Trachea midline. No bony tenderness or step-off. Range of motion is full. CARDIOVASCULAR: Regular rate and rhythm. RESPIRATORY: No accessory muscle use. Clear to auscultation. Breath sounds equal bilaterally. GASTROINTESTINAL: Abdomen soft, non-tender, nondistended. Hepatic and splenic margins not palpable. MUSCULOSKELETAL: Extremities without clubbing, cyanosis, or edema. No obvious deformities. Patient is tenderness along the left lateral thoracic all without obvious deformity or crepitus. No subcutaneous emphysema is noted. Patient has complaints of pain in the lumbar spine and with movement of the pelvis. However the patient is able to move both lower extremities independently without significant hip pain. NEUROLOGICAL: Awake and alert. No obvious cranial nerve deficits. Motor grossly within normal limits. Five out of 5 muscle strength in the arms and legs. Patient has Parkinsonian appearance, with slow response noted. No obvious tremor. Normal speech. PSYCHIATRIC: Appropriate mood and affect; insight and judgment normal. Data Data Last Documented VS Vital Signs Date Time Temp Pulse Resp B/P (MAP) Pulse Ox O2 Delivery O2 Flow Rate FiO2 09/16/17 18:25 132 18 140/81 (100) 97 Nasal Cannula 2.00 09/16/17 13:00 99.7 Orders Orders Electrocardiogram (09/16/17 15:06) Ammonia (09/16/17 15:06) Complete Blood Count With Diff (09/16/17 15:06) Comprehensive Metabolic Panel (09/16/17 15:06) Creatine Kinase (Cpk) (09/16/17 15:06) Prothrombin Time / Inr (Pt) (09/16/17 15:06) Act Partial Throm Time (Ptt) (09/16/17 15:06) Troponin I (09/16/17 15:06) Thyroid Stimulating Hormone (09/16/17 15:06) Urinalysis - C+S If Indicated (09/16/17 15:06) Lactic Acid Sepsis Protocol (09/16/17 15:06) Chest, Single Ap (09/16/17 15:06) Ct Brain W/O Iv Contrast(Rout) (09/16/17 15:06) Blood Glucose (09/16/17 15:06) Ecg Monitoring (09/16/17 15:06) Iv Access Insert/Monitor (09/16/17 15:06) Oximetry (09/16/17 15:06) Sodium Chloride 0.9% Flush (Ns Flush) (09/16/17 15:15) Sodium Chloride 0.9% Flush (Ns Flush) (09/16/17 15:15) Ribs, Uni (W/Exp Cxr-Min 3vw) (09/16/17 15:36) Spine, Lumbar - Ltd (Ap & Lat) (09/16/17 15:36) Pelvis, Ap Only (Routine) (09/16/17 15:36) Morphine Inj (Morphine Inj) (09/16/17 16:45) Blood Culture (09/16/17 16:40) Vancomycin Inj (Vancomycin Inj) (09/16/17 16:40) Piperacil-Tazo 4.5 Gm Premix (Zosyn 4.5 (09/16/17 16:40) Electrocardiogram (09/16/17 ) Ct Abd/Pel W Iv Contrast(Rout) (09/16/17 ) Ct Thorax/ Chest W Iv Contrast (09/16/17 ) Ct Cerv Spine W/O Contrast (09/16/17 ) Apply Cervical Collar (09/16/17 17:17) Iohexol 350 Inj (Omnipaque 350 Inj) (09/16/17 17:50) Diltiazem Inj (Cardizem Inj) (09/16/17 18:30) Consult General Surgery (09/16/17 ) Admit Order (Ed Use Only) (09/16/17 18:28) Labs Laboratory Tests Test 09/16/17 15:30 09/16/17 16:17 White Blood Count 6.5 TH/MM3 Red Blood Count 4.79 MIL/MM3 Hemoglobin 13.6 GM/DL Hematocrit 40.9 % Mean Corpuscular Volume 85.5 FL Mean Corpuscular Hemoglobin 28.3 PG Mean Corpuscular Hemoglobin Concent 33.1 % Red Cell Distribution Width 18.6 % Platelet Count 271 TH/MM3 Mean Platelet Volume 7.7 FL Neutrophils (%) (Auto) 83.8 % Lymphocytes (%) (Auto) 9.2 % Monocytes (%) (Auto) 6.3 % Eosinophils (%) (Auto) 0.2 % Basophils (%) (Auto) 0.5 % Neutrophils # (Auto) 5.4 TH/MM3 Lymphocytes # (Auto) 0.6 TH/MM3 Monocytes # (Auto) 0.4 TH/MM3 Eosinophils # (Auto) 0.0 TH/MM3 Basophils # (Auto) 0.0 TH/MM3 CBC Comment DIFF FINAL Differential Comment Prothrombin Time 11.3 SEC Prothromb Time International Ratio 1.1 RATIO Activated Partial Thromboplast Time 30.8 SEC Blood Urea Nitrogen 27 MG/DL Creatinine 1.11 MG/DL Random Glucose 121 MG/DL Total Protein 7.9 GM/DL Albumin 2.5 GM/DL Calcium Level 8.2 MG/DL Alkaline Phosphatase 67 U/L Aspartate Amino Transf (AST/SGOT) 50 U/L Alanine Aminotransferase (ALT/SGPT) 39 U/L Total Bilirubin 0.7 MG/DL Sodium Level 134 MEQ/L Potassium Level 5.0 MEQ/L Chloride Level 101 MEQ/L Carbon Dioxide Level 24.6 MEQ/L Anion Gap 8 MEQ/L Estimat Glomerular Filtration Rate 63 ML/MIN Lactic Acid Level 3.4 mmol/L Ammonia 19 MCMOL/L Total Creatine Kinase 96 U/L Troponin I LESS THAN 0.02 NG/ML Thyroid Stimulating Hormone 3rd Gen 2.810 uIU/ML Urine Color YELLOW Urine Turbidity CLEAR Urine pH 6.5 Urine Specific [place] 1.022 Urine Protein 30 mg/dL Urine Glucose (UA) NEG mg/dL Urine Ketones NEG mg/dL Urine Occult Blood NEG Urine Nitrite NEG Urine Bilirubin NEG Urine Urobilinogen 2.0 MG/DL Urine Leukocyte Esterase NEG Urine RBC 4 /hpf Urine WBC 1 /hpf Microscopic Urinalysis Comment CATH-CULT NOT IND MDM Medical Decision Making Medical Screen Exam Complete: Yes Emergency Medical Condition: Yes Medical Record Reviewed: Yes Differential Diagnosis Fallin shower. Lumbar pain. 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 Rib fracture. Compression fracture. Electrolyte imbalance. Syncope. Narrative Course Patient appears medically stable at time of exam. Labs ordered including CBC, CMP, magnesium, cardiac panel, urinalysis. CT of the head is ordered. EKG and chest x-ray is ordered. Patient is given 4 mg Zofran as well as 2 mg morphine IV. X-rays of the right ribs and lumbar spine and pelvis are ordered. IV access is obtained patient is given 500 mL of normal saline bolus. 1640 hrs. Patient's heart rate elevated in the 150s to 160 with atrial fibrillation RVR. Lactic acid is noted to be elevated 3.6. Blood cultures 2 is ordered. Patient started on Zosyn and Vanco. Per Dr. Mcghee. Repeat EKG performed. Patient is given an additional 4 mg morphine IV. Patient care at this point was assumed by Dr. Mcghee. Patient was admitted to the ICU with multiple rib fractures. Condition: Stable Samuel Barker Sep 16, 2017 15:27
[2017-09-16 15:49] LABS: AUTOMATED NEUTROPHIL # 5.4 TH/MM3 (1.8-7.7); BASOPHIL % 0.5 % (0.0-2.0); EOSINOPHIL % 0.2 % (0.0-4.0); HEMATOCRIT 40.9 % (39.0-51.0); HEMOGLOBIN 13.6 GM/DL (13.0-17.0); LYMPH % 9.2 % (9.0-44.0); LYMPHOCYTE # 0.6 TH/MM3 (1.0-4.8); MEAN CELL VOLUME 85.5 FL (80.0-100.0); MEAN CORPUSCULAR HEMOGLOBIN 28.3 PG (27.0-34.0); MEAN CORPUSCULAR HGB CONC 33.1 % (32.0-36.0); MEAN PLATELET VOLUME 7.7 FL (7.0-11.0); MONO % 6.3 % (0.0-8.0); MONOCYTE # 0.4 TH/MM3 (0-0.9); NEUT % 83.8 % (16.0-70.0); PLATELET COUNT 271 TH/MM3 (150-450); RED BLOOD COUNT 4.79 MIL/MM3 (4.50-5.90); RED CELL DISTRIBUTION WIDTH 18.6 % (11.6-17.2); WHITE BLOOD COUNT 6.5 TH/MM3 (4.0-11.0)
[2017-09-16 16:00] LABS: INTERNATIONAL NORMALIZED RATIO 1.1 RATIO; PROTHROMBIN TIME - PATIENT 11.3 SEC (9.8-11.6)
[2017-09-16 16:12] LABS: ALBUMIN 2.5 GM/DL (3.4-5.0); AST (GOT) 50 U/L (15-37); BICARBONATE 24.6 MEQ/L (21.0-32.0); BLOOD UREA NITROGEN 27 MG/DL (7-18); CALCIUM 8.2 MG/DL (8.5-10.1); CHLORIDE 101 MEQ/L (98-107); CREATININE 1.11 MG/DL (0.60-1.30); GLOMERULAR FILTRATION RATE 63 ML/MIN (>89); GLUCOSE,RANDOM 121 MG/DL (74-106); SODIUM (NA) 134 MEQ/L (136-145)
--- NOTE | 2017-09-16 16:14 | RADRPT ---
EXAM DATE/TIME: 09/16/2017 15:25 [facility] COMPARISON: CHEST SINGLE AP, August 09, 2017, 10:23. INDICATIONS : Syncopal episode per history. MEDICAL HISTORY : None. SURGICAL HISTORY : None. ENCOUNTER: Initial ACUITY: 1 day PAIN SCORE: Non-responsive. LOCATION: Bilateral chest FINDINGS: Single AP view of the chest. Acute left lateral lower rib fractures noted. Small to moderate sized le ft pleural effusion unchanged. Left lower lobe atelectasis versus consolidation. No evidence of pneum othorax. Mild right lung base opacity unchanged. CONCLUSION: Acute left lower rib fractures. Chronic left lower lobe consolidation versus atelectasis and small-to -moderate left pleural effusion. Chronic mild right lung base opacity. Tone Potter MD on September 16, 2017 at 16:10 Board Certified Radiologist. This report was verified electronically.
[2017-09-16 16:16] LABS: LACTIC ACID SEPSIS PROTOCOL 3.4 mmol/L (0.4-2.0)
[2017-09-16 16:21] LABS: ALKALINE PHOSPHATASE 67 U/L (45-117); ALT (GPT) 39 U/L (12-78); TOTAL BILIRUBIN ADULT 0.7 MG/DL (0.2-1.0); TOTAL PROTEIN 7.9 GM/DL (6.4-8.2); TROPONIN I LESS THAN 0.02 NG/ML (0.02-0.05)
[2017-09-16] MEDS ORDERED: PIPERACIL-TAZO 4.5 GM PREMIX 100 ML IV STA (16:40)
[2017-09-16] MEDS ORDERED: VANCOMYCIN INJ 1,000 MG in SODIUM CHLOR 0.9% 250 ML INJ 250 ML IV STA (16:40)
[2017-09-16] MEDS ORDERED: MORPHINE SULFATE 2 MG/ML INJ IV PUSH ONE (16:45)
--- NOTE | 2017-09-16 16:46 | RADRPT ---
EXAM DATE/TIME: 09/16/2017 16:22 [facility] COMPARISON: CT BRAIN W/O CONTRAST, August 17, 2017, 9:53. INDICATIONS : Fall, confusion. RADIATION DOSE: 38.09 CTDIvol (mGy) MEDICAL HISTORY : Hypertension. Bleed, Afib SURGICAL HISTORY : Nothing listed. ENCOUNTER: Initial ACUITY: 1 day PAIN SCALE: LOCATION: Bilateral cranial TECHNIQUE: Multiple contiguous axial images were obtained of the head. Using automated exposure control and adj ustment of the mA and/or kV according to patient size, radiation dose was kept as low as reasonably a chievable to obtain optimal diagnostic quality images. DICOM format image data is available electro nically for review and comparison. FINDINGS: CEREBRUM: The ventricles are normal for age. No evidence of midline shift, mass lesion, hemorrhage or acute in farction. No extra-axial fluid collections are seen. POSTERIOR FOSSA: The cerebellum and brainstem are intact. The 4th ventricle is midline. The cerebellopontine angle i s unremarkable. EXTRACRANIAL: The visualized portion of the orbits is intact. SKULL: Evidence of old craniotomy again noted on the right. No acute skull abnormality. CONCLUSION: No acute intracranial abnormality. Ramon Rivera MD on September 16, 2017 at 16:43 Board Certified Radiologist. This report was verified electronically.
[2017-09-16 16:52] LABS: BILIRUBIN, URINE NEG (NEG); BLOOD, URINE NEG (NEG); GLUCOSE,URINE NEG (NEG); KETONE, URINE NEG (NEG); NITRITE,URINE NEG (NEG); PH, URINE 6.5 (5.0-8.5); URINE COLOR YELLOW (YELLW/STRAW); URINE LEUKOCYTE ESTERASE NEG (NEG)
--- NOTE | 2017-09-16 16:52 | RADRPT ---
EXAM DATE/TIME: 09/16/2017 15:57 [facility] COMPARISON: No previous studies available for comparison. INDICATIONS : Evaluate pelvis for trauma, fell MEDICAL HISTORY : None. SURGICAL HISTORY : None. ENCOUNTER: Initial ACUITY: 1 day PAIN SCORE: Non-responsive. LOCATION: Pelvis FINDINGS: A single frontal view of the pelvis demonstrates no evidence of fracture. The bony pelvic ring is in tact. Bony mineralization is normal. The soft tissues are intact. CONCLUSION: Intact pelvis. Ramon Rivera MD on September 16, 2017 at 16:49 Board Certified Radiologist. This report was verified electronically.
--- NOTE | 2017-09-16 16:54 | RADRPT ---
EXAM DATE/TIME: 09/16/2017 15:58 [facility] COMPARISON: No previous studies available for comparison. INDICATIONS : Evaluate lumbar spine for trauma, fell MEDICAL HISTORY : None. SURGICAL HISTORY : None. ENCOUNTER: Initial ACUITY: 1 day PAIN SCORE: Non-responsive. LOCATION: Lumbar spine FINDINGS: No fracture or subluxation demonstrated. Lumbar spine vertebral bodies have normal height. Multilevel disc space narrowing with bilateral facet osteoarthritis, severe at L4/L5 and generally mo derate at the other levels. CONCLUSION: No evidence of fracture or subluxation of the lumbar spine. Moderate to severe degenerative changes. Ramon Rivera MD on September 16, 2017 at 16:49 Board Certified Radiologist. This report was verified electronically.
--- NOTE | 2017-09-16 16:58 | RADRPT ---
EXAM DATE/TIME: 09/16/2017 15:59 [facility] COMPARISON: CHEST SINGLE AP, September 16, 2017, 15:25. INDICATIONS : Evaluate left ribs for fracture, fell MEDICAL HISTORY : None. SURGICAL HISTORY : None. ENCOUNTER: Initial ACUITY: 1 day PAIN SCORE: Non-responsive. LOCATION: Left Ribs FINDINGS: Mildly to moderately displaced fractures are seen laterally of the left 6 through 10th ribs. I don't see a pneumothorax. There is a small pleural effusion which may represent a hemothorax. Patchy hazy a irspace opacities involve both lungs. CONCLUSION: Mild to moderate displaced fractures laterally of the left sixth through 10th ribs. No pneumothorax b ut a small hemothorax is possible. Ramon Rivera MD on September 16, 2017 at 16:52 Board Certified Radiologist. This report was verified electronically.
[2017-09-16] MEDS ORDERED: IOHEXOL 350 MG/ML 10 ML VIAL (for RAD DIAG) IVCONTRAST ONE (17:50)
--- NOTE | 2017-09-16 18:08 | RADRPT ---
EXAM DATE/TIME: 09/16/2017 17:33 [facility] COMPARISON: No previous studies available for comparison. INDICATIONS : Trauma, fall today. IV CONTRAST: 70 cc Omnipaque 350 (iohexol) IV ; Cumulative dose for multiple exams. RADIATION DOSE: 5.27 CTDIvol (mGy) ; Combined studies MEDICAL HISTORY : Cardiovascular disease. Hypertension. SURGICAL HISTORY : None. ENCOUNTER: Initial ACUITY: 1 day PAIN SCALE: Non-responsive LOCATION: Bilateral chest TECHNIQUE: Volumetric scanning of the chest was performed. Using automated exposure control and adjustment of t he mA and/or kV according to patient size, radiation dose was kept as low as reasonably achievable to obtain optimal diagnostic quality images. DICOM format image data is available electronically for review and comparison. Follow-up recommendations for detected pulmonary nodules are based at a minimum on nodule size and pa tient risk factors according to Fleischner Society Guidelines. FINDINGS: LUNGS: Bilateral lower lung atelectasis left greater than right. PLEURA: Moderate-sized bilateral pleural effusions. MEDIASTINUM: Mildly dilated ascending aorta measuring 4.4 cm coronary artery calcification noted. No evidence of a ortic dissection. No enlarged mediastinal lymph nodes. Trace pericardial effusion. AXILLAE: Within normal limits. No lymphadenopathy. SKELETAL: Displaced lateral left sixth and seventh rib fractures. One bone width displaced lateral eighth and n inth rib fractures on the left. Nondisplaced 10th, 11th, and 12th posterior rib fractures on the left. MISCELLANEOUS: Abdomen will be described on abdomen CT report. CONCLUSION: 1. Multiple acute left-sided rib fractures. No evidence of pneumothorax. 2. Mildly dilated ascending thoracic aorta. 3. Bilateral moderate-sized pleural effusions and atelectasis. Tone Potter MD on September 16, 2017 at 18:00 Board Certified Radiologist. This report was verified electronically.
--- NOTE | 2017-09-16 18:09 | RADRPT ---
EXAM DATE/TIME: 09/16/2017 17:23 [facility] COMPARISON: No previous studies available for comparison. INDICATIONS : Trauma, fall today. IV CONTRAST: 70 cc Omnipaque 350 (iohexol) IV ; Cumulative dose for multiple exams. ORAL CONTRAST: No oral contrast ingested. RADIATION DOSE: 5.27 CTDIvol (mGy) ; Combined studies MEDICAL HISTORY : Hypertension. Cardiovascular disease SURGICAL HISTORY : None. ENCOUNTER: Initial ACUITY: 1 day PAIN SCALE: Non-responsive LOCATION: Bilateral abdomen TECHNIQUE: Volumetric scanning of the abdomen and pelvis was performed. Using automated exposure control and ad justment of the mA and/or kV according to patient size, radiation dose was kept as low as reasonably achievable to obtain optimal diagnostic quality images. DICOM format image data is available electro nically for review and comparison. FINDINGS: 2.1 cm hypodensity of the right hepatic lobe, probably a benign cyst. Liver otherwise within normal l imits. Spleen, pancreas and adrenal glands are normal. Multiple small cysts in both kidneys, mostly p eripelvic. No obstruction or acute inflammatory changes of the gastrointestinal tract. Moderate stool seen in th e rectum and cecum. There are rib fractures on the left and bilateral pleural effusions. Patient is having a CT of the ch est same day. Other visualized osseous structures are intact. CONCLUSION: 1. No evidence of acute visceral organ injury or other trauma of the abdomen or pelvis. 2. There are left rib fractures and bilateral pleural effusions noted. Please refer to chest CT repor t. 3. Cysts of the liver and multiple small peripelvic cysts of both kidneys. Ramon Rivera MD on September 16, 2017 at 18:02 Board Certified Radiologist. This report was verified electronically.
--- NOTE | 2017-09-16 18:18 | RADRPT ---
EXAM DATE/TIME: 09/16/2017 17:29 [facility] COMPARISON: No previous studies available for comparison. INDICATIONS : Trauma, fall today. RADIATION DOSE: 28.42 CTDIvol (mGy) MEDICAL HISTORY : Cardiovascular disease. Hypertension. SURGICAL HISTORY : None. ENCOUNTER: Initial ACUITY: 1 day PAIN SCALE: Non-responsive LOCATION: Bilateral neck TECHNIQUE: Volumetric scanning of the cervical spine was performed. Multiplanar reconstructions in the sagittal, coronal and oblique axial planes were performed. Using automated exposure control and adjustment o f the mA and/or kV according to patient size, radiation dose was kept as low as reasonably achievable to obtain optimal diagnostic quality images. DICOM format image data is available electronically f or review and comparison. FINDINGS: VERTEBRAE: Normal vertebral body height. ALIGNMENT: 2 mm retrolisthesis C5 on C6. Alignment otherwise within normal limits. C2-C3: The bony spinal canal is normal in size. No evidence of disc bulge or herniation. The neural forami na are bilaterally patent. C3-C4: Moderate bilateral facet arthrosis. Moderate left neural foraminal narrowing. Mild right neural front al narrowing. Central canal diameter within normal limits. C4-C5: Moderate to severe left-sided facet arthrosis. Moderate severity left neuroforaminal narrowing. Centr al canal diameter within normal limits. C5-C6: Moderate severity bilateral facet arthrosis and broad-based disc osteophyte complex. Minimal central canal narrowing. Moderate bilateral neural foraminal narrowing. C6-C7: Moderate bilateral facet arthrosis and broad-based disc osteophyte complex. Mild central canal narrow ing. Moderate bilateral neural foraminal narrowing. C7-T1: Less than facet arthrosis. Central canal diameter within normal limits. Neural foraminal diameters wi thin normal limits. CONCLUSION: No evidence of fracture. Prominent multilevel degenerative findings. Tone Potter MD on September 16, 2017 at 18:12 Board Certified Radiologist. This report was verified electronically.
--- NOTE | 2017-09-16 18:27 | PD ---
Physical Exam Narrative GENERAL: Well-nourished, well-developed patient. SKIN: Warm and dry. HEAD: Normocephalic and atraumatic. EYES: No injection or drainage. ENT: No nasal drainage noted. NECK: Supple, trachea midline. CARDIOVASCULAR: irregular rate and rhythm RESPIRATORY: Breath sounds equal bilaterally at apices. No accessory muscle use. GASTROINTESTINAL: Abdomen soft, non-tender, nondistended. NEUROLOGICAL: Awake and alert. Moves all extremities and sensory grossly within normal limits. Normal speech. Data Data Last Documented VS Vital Signs Date Time Temp Pulse Resp B/P (MAP) Pulse Ox O2 Delivery O2 Flow Rate FiO2 09/16/17 18:25 132 18 140/81 (100) 97 Nasal Cannula 2.00 09/16/17 13:00 99.7 Orders Orders Electrocardiogram (09/16/17 15:06) Ammonia (09/16/17 15:06) Complete Blood Count With Diff (09/16/17 15:06) Comprehensive Metabolic Panel (09/16/17 15:06) Creatine Kinase (Cpk) (09/16/17 15:06) Prothrombin Time / Inr (Pt) (09/16/17 15:06) Act Partial Throm Time (Ptt) (09/16/17 15:06) Troponin I (09/16/17 15:06) Thyroid Stimulating Hormone (09/16/17 15:06) Urinalysis - C+S If Indicated (09/16/17 15:06) Lactic Acid Sepsis Protocol (09/16/17 15:06) Chest, Single Ap (09/16/17 15:06) Ct Brain W/O Iv Contrast(Rout) (09/16/17 15:06) Blood Glucose (09/16/17 15:06) Ecg Monitoring (09/16/17 15:06) Iv Access Insert/Monitor (09/16/17 15:06) Oximetry (09/16/17 15:06) Sodium Chloride 0.9% Flush (Ns Flush) (09/16/17 15:15) Sodium Chloride 0.9% Flush (Ns Flush) (09/16/17 15:15) Ribs, Uni (W/Exp Cxr-Min 3vw) (09/16/17 15:36) Spine, Lumbar - Ltd (Ap & Lat) (09/16/17 15:36) Pelvis, Ap Only (Routine) (09/16/17 15:36) Morphine Inj (Morphine Inj) (09/16/17 16:45) Blood Culture (09/16/17 16:40) Vancomycin Inj (Vancomycin Inj) (09/16/17 16:40) Piperacil-Tazo 4.5 Gm Premix (Zosyn 4.5 (09/16/17 16:40) Electrocardiogram (09/16/17 ) Ct Abd/Pel W Iv Contrast(Rout) (09/16/17 ) Ct Thorax/ Chest W Iv Contrast (09/16/17 ) Ct Cerv Spine W/O Contrast (09/16/17 ) Apply Cervical Collar (09/16/17 17:17) Iohexol 350 Inj (Omnipaque 350 Inj) (09/16/17 17:50) Diltiazem Inj (Cardizem Inj) (09/16/17 18:30) Consult General Surgery (09/16/17 ) Admit Order (Ed Use Only) (09/16/17 18:28) Labs Laboratory Tests Test 09/16/17 15:30 09/16/17 16:17 White Blood Count 6.5 TH/MM3 Red Blood Count 4.79 MIL/MM3 Hemoglobin 13.6 GM/DL Hematocrit 40.9 % Mean Corpuscular Volume 85.5 FL Mean Corpuscular Hemoglobin 28.3 PG Mean Corpuscular Hemoglobin Concent 33.1 % Red Cell Distribution Width 18.6 % Platelet Count 271 TH/MM3 Mean Platelet Volume 7.7 FL Neutrophils (%) (Auto) 83.8 % Lymphocytes (%) (Auto) 9.2 % Monocytes (%) (Auto) 6.3 % Eosinophils (%) (Auto) 0.2 % Basophils (%) (Auto) 0.5 % Neutrophils # (Auto) 5.4 TH/MM3 Lymphocytes # (Auto) 0.6 TH/MM3 Monocytes # (Auto) 0.4 TH/MM3 Eosinophils # (Auto) 0.0 TH/MM3 Basophils # (Auto) 0.0 TH/MM3 CBC Comment DIFF FINAL Differential Comment Prothrombin Time 11.3 SEC Prothromb Time International Ratio 1.1 RATIO Activated Partial Thromboplast Time 30.8 SEC Blood Urea Nitrogen 27 MG/DL Creatinine 1.11 MG/DL Random Glucose 121 MG/DL Total Protein 7.9 GM/DL Albumin 2.5 GM/DL Calcium Level 8.2 MG/DL Alkaline Phosphatase 67 U/L Aspartate Amino Transf (AST/SGOT) 50 U/L Alanine Aminotransferase (ALT/SGPT) 39 U/L Total Bilirubin 0.7 MG/DL Sodium Level 134 MEQ/L Potassium Level 5.0 MEQ/L Chloride Level 101 MEQ/L Carbon Dioxide Level 24.6 MEQ/L Anion Gap 8 MEQ/L Estimat Glomerular Filtration Rate 63 ML/MIN Lactic Acid Level 3.4 mmol/L Ammonia 19 MCMOL/L Total Creatine Kinase 96 U/L Troponin I LESS THAN 0.02 NG/ML Thyroid Stimulating Hormone 3rd Gen 2.810 uIU/ML Urine Color YELLOW Urine Turbidity CLEAR Urine pH 6.5 Urine Specific [place] 1.022 Urine Protein 30 mg/dL Urine Glucose (UA) NEG mg/dL Urine Ketones NEG mg/dL Urine Occult Blood NEG Urine Nitrite NEG Urine Bilirubin NEG Urine Urobilinogen 2.0 MG/DL Urine Leukocyte Esterase NEG Urine RBC 4 /hpf Urine WBC 1 /hpf Microscopic Urinalysis Comment CATH-CULT NOT IND MDM Supervised Visit with JERMAINE: Yes Interpretation(s) CBC & BMP Diagram 09/16/17 15:30 Total Protein 7.9, Albumin 2.5 L, Calcium Level 8.2 L, Alkaline Phosphatase 67, Aspartate Amino Transf (AST/SGOT) 50 H, Alanine Aminotransferase (ALT/SGPT) 39, Total Bilirubin 0.7 Last 24 hours Impressions Ribs X-Ray 09/16/17 1536 Signed Impressions: Service Date/Time: Saturday, September 16, 2017 15:59 - CONCLUSION: Mild to moderate displaced fractures laterally of the left sixth through 10th ribs. No pneumothorax but a small hemothorax is possible. Ramon Rivera MD Pelvis X-Ray 09/16/17 1536 Signed Impressions: Service Date/Time: Saturday, September 16, 2017 15:57 - CONCLUSION: Intact pelvis. Ramon Rivera MD Lumbar Spine X-Ray 09/16/17 1536 Signed Impressions: Service Date/Time: Saturday, September 16, 2017 15:58 - CONCLUSION: No evidence of fracture or subluxation of the lumbar spine. Moderate to severe degenerative changes. Ramon Rivera MD Head CT 09/16/17 1506 Signed Impressions: Service Date/Time: Saturday, September 16, 2017 16:22 - CONCLUSION: No acute intracranial abnormality. Ramon Rivera MD Chest X-Ray 09/16/17 1506 Signed Impressions: Service Date/Time: Saturday, September 16, 2017 15:25 - CONCLUSION: Acute left lower rib fractures. Chronic left lower lobe consolidation versus atelectasis and [id number] left pleural effusion. Chronic mild right lung base opacity. Tone Potter MD Chest CT 09/16/17 0000 Signed Impressions: Service Date/Time: Saturday, September 16, 2017 17:33 - CONCLUSION: 1. Multiple acute left-sided rib fractures. No evidence of pneumothorax. 2. Mildly dilated ascending thoracic aorta. 3. Bilateral moderate-sized pleural effusions and atelectasis. Tone Potter MD Cervical Spine CT 09/16/17 0000 Signed Impressions: Service Date/Time: Saturday, September 16, 2017 17:29 - CONCLUSION: No evidence of fracture. Prominent multilevel degenerative findings. Tone Potter MD Abdomen/Pelvis CT 09/16/17 0000 Signed Impressions: Service Date/Time: Saturday, September 16, 2017 17:23 - CONCLUSION: 1. No evidence of acute visceral organ injury or other trauma of the abdomen or pelvis. 2. There are left rib fractures and bilateral pleural effusions noted. Please refer to chest CT report. 3. Cysts of the liver and multiple small peripelvic cysts of both kidneys. Ramon Rivera MD Narrative Course Patient initially seen by midlevel an ambulance hallway. Initial workup showed multiple rib fractures. I resumed care and CTs were added on to rule out concurrent injury. Patient also had elevated lactate. Cultures and antibiotics were added on. Patient was A. fib with RVR. This is likely related to pain and he'll be given morphine and if his CTs are normal he can be given Cardizem additionally. Family updated. Patient's heart rate improves some with morphine. His blood pressure is stable. CT without bleeding. He'll be given Cardizem. Family updated and agree to close monitoring in the hospital. Heart rate has improved to 109 with Cardizem. If his blood pressure remained stable he may need Cardizem drip but daughter states he's had issues with hypotension with this in the past. Critical Care Narrative Aggregate critical care time was 35 minutes. Time to perform other separately billable procedures was not included in the critical care time. My time did not include minutes spent treating any other patients simultaneously or on activities that did not directly contribute to the patient's treatment. The services I provided to this patient were to treat and/or prevent clinically significant deterioration that could result in: Shock, I provided critical care services requiring my management, as noted below: Chart data review, documentation time, medication orders and management, vital sign assessments/reviewing monitor data, ordering and reviewing lab tests, ordering and interpreting/reviewing x-rays and diagnostic studies, care of the patient and discussion of the patient with the admitting physicians. Physician Communication Physician Communication dr rosa claros will follow along and to update with ct dr lee states to admit to medicine and will follow dr susan ryan to admit in icu for close monitoring Diagnosis Primary Impression: Multiple rib fractures involving four or more ribs Additional Impressions: Fall Qualified Codes: W19.XXXA - Unspecified fall, initial encounter Lactic acidosis Bilateral pleural effusion Admitting Information Admitting Physician Requests: Admit Condition: Stable Celia Mcghee MD Sep 16, 2017 18:27
[2017-09-16] MEDS ORDERED: DILTIAZEM HCL 25 MG/5 ML VIAL IV ONE (18:30)
--- NOTE | 2017-09-16 19:11 | HHI.HP ---
HPI Service [facility] Primary Care Physician Jorge A Bravo MD Admission Diagnosis multiple rib fractures, afib with rvr, pleural effusions Diagnoses: (1) Fall Diagnosis: Principal (2) Multiple rib fractures involving four or more ribs Diagnosis: Principal (3) Lactic acidosis Diagnosis: Principal (4) Pleural effusion Diagnosis: Principal (5) A-fib Diagnosis: Principal Travel History International Travel<30 Days: No Contact w/Intl Traveler <30 Da: No Traveled to Known Affected Are: No History of Present Illness This is a 87-year-old male with PMH of A. fib on ASA, HTN and Dementia who was sent to the ER from [facility] after fall. Pt unable to provide history due to Dementia, at bedside states pt had gotten up at approx 4am to go to the bathroom, however he did not use his walker. Had apparent fall in bathroom but was able to get himself up and back into bed. states he had c/o left rib/ back pain which has been progressively worse throughout the day and sent to ER for eval. On arrival, BP 137/114, HR 114, O2 sat 98% on RA, Temp 99.7. While in ER noted to be in A-fib w/ RVR, HR 120-130's, s/p Cardizem x1 w/ HR 100's. BUN 27, GFR 63. Lactic Acid 3.4. Troponin negative. INR 1.1. UA negative. CT Head/C-spine negative for acute findings. Lumbar X-ray negative. Pelvis X- ray intact. Rib X-ray with mild to moderate displaced fractures laterally of left 6 through 10th ribs, no pneumothorax. CT Chest with multiple acute left- sided rib fractures, no evidence of pneumothorax, bilateral moderate-sized pleural effusions and atelectasis. CT Abdomen/Pelvis with no acute intra- abdominal findings. Dr. Menjivar consulted by ER physician, no emergent trauma /surgical intervention needed at this time. Pt w/o complaints of pain. S/p Vanc/Zosyn in ER. Review of Systems Except as stated in HPI: all other systems reviewed are Neg ROS: 14 point review of systems otherwise negative. Past Family Social History Past Medical History PMH: A. fib on ASA, HTN and Dementia Past Surgical History PAST SURGICAL HISTORY: Tonsillectomy, Bilateral Inguinal Hernia Repair Allergies: Coded Allergies: No Known Allergies (Verified Allergy, Unknown, 09/16/17) Family History PAST FAMILY HISTORY: Reviewed. No h/o DM or CAD Social History PAST SOCIAL HISTORY: Negative for alcohol, tobacco or drugs. Physical Exam Vital Signs Vital Signs Date Time Temp Pulse Resp B/P (MAP) Pulse Ox O2 Delivery O2 Flow Rate FiO2 09/16/17 18:53 117 20 112/67 (82) 98 Nasal Cannula 2.00 09/16/17 18:25 132 18 140/81 (100) 97 Nasal Cannula 2.00 09/16/17 17:03 177 18 194/87 (122) 96 Nasal Cannula 2.00 09/16/17 16:57 168 20 170/79 (109) 96 Nasal Cannula 2.00 09/16/17 15:37 96 Nasal Cannula 2.00 09/16/17 15:30 154 20 96 Nasal Cannula 2.00 09/16/17 15:30 126 20 162/107 (125) 96 Nasal Cannula 2.00 09/16/17 13:00 99.7 114 137/114 (122) 98 Physical Exam PE: GENERAL: Elderly white male in no acute distress. at bedside. HEENT: PERRLA, EOMI. No scleral icterus or conjunctival pallor. No lid lag or facial droop. CARDIOVASCULAR: Regular rate and rhythm. No obvious murmurs to auscultation. No chest tenderness to palpation. RESPIRATORY: No obvious rhonchi or wheezing. Clear to auscultation. Breath sounds equal bilaterally. GASTROINTESTINAL: Abdomen soft, non-tender, nondistended. BS normal. MUSCULOSKELETAL: Extremities without clubbing, cyanosis, or edema. No obvious deformities. NEUROLOGICAL: Awake, alert, oriented to person only. No focal neurologic deficits. Moving both upper and lower extremities spontaneously. Laboratory Laboratory Tests Test 09/16/17 15:30 09/16/17 16:17 09/16/17 18:38 White Blood Count 6.5 Red Blood Count 4.79 Hemoglobin 13.6 Hematocrit 40.9 Mean Corpuscular Volume 85.5 Mean Corpuscular Hemoglobin 28.3 Mean Corpuscular Hemoglobin Concent 33.1 Red Cell Distribution Width 18.6 Platelet Count 271 Mean Platelet Volume 7.7 Neutrophils (%) (Auto) 83.8 Lymphocytes (%) (Auto) 9.2 Monocytes (%) (Auto) 6.3 Eosinophils (%) (Auto) 0.2 Basophils (%) (Auto) 0.5 Neutrophils # (Auto) 5.4 Lymphocytes # (Auto) 0.6 Monocytes # (Auto) 0.4 Eosinophils # (Auto) 0.0 Basophils # (Auto) 0.0 CBC Comment DIFF FINAL Differential Comment Prothrombin Time 11.3 Prothromb Time International Ratio 1.1 Activated Partial Thromboplast Time 30.8 Blood Urea Nitrogen 27 Creatinine 1.11 Random Glucose 121 Total Protein 7.9 Albumin 2.5 Calcium Level 8.2 Alkaline Phosphatase 67 Aspartate Amino Transf (AST/SGOT) 50 Alanine Aminotransferase (ALT/SGPT) 39 Total Bilirubin 0.7 Sodium Level 134 Potassium Level 5.0 Chloride Level 101 Carbon Dioxide Level 24.6 Anion Gap 8 Estimat Glomerular Filtration Rate 63 Lactic Acid Level 3.4 3.1 Ammonia 19 Total Creatine Kinase 96 Troponin I LESS THAN 0.02 Thyroid Stimulating Hormone 3rd Gen 2.810 Urine Color YELLOW Urine Turbidity CLEAR Urine pH 6.5 Urine Specific [place] 1.022 Urine Protein 30 Urine Glucose (UA) NEG Urine Ketones NEG Urine Occult Blood NEG Urine Nitrite NEG Urine Bilirubin NEG Urine Urobilinogen 2.0 Urine Leukocyte Esterase NEG Urine RBC 4 Urine WBC 1 Microscopic Urinalysis Comment CATH-CULT NOT IND Date/Time Source Procedure Growth Status 09/16/17 16:50 Blood Peripheral Aerobic Blood Culture Pending Received 09/16/17 16:50 Blood Peripheral Anaerobic Blood Culture Pending Received Result Diagram: 09/16/17 1530 09/16/17 1530 Caprini VTE Risk Assessment Caprini VTE Risk Assessment: No/Low Risk (score <= 1) Caprini Risk Assessment Model Point Value = 1 Point Value = 2 Point Value = 3 Point Value = 5 Age 41-60 Minor surgery BMI > 25 kg/m2 Swollen legs Varicose veins or History of unexplained or recurrent spontaneous Oral contraceptives or hormone replacement Sepsis (< 1 month) Serious lung disease, including pneumonia (< 1 month) Abnormal pulmonary function Acute myocardial infarction Congestive heart failure (< 1 month) History of inflammatory bowel disease Medical patient at bed rest Age 61-74 Arthroscopic surgery Major open surgery (> 45 min) Laparoscopic surgery (> 45 min) Malignancy Confined to bed (> 72 hours) Immobilizing plaster cast Central venous access Age >= 75 History of VTE Family history of VTE Factor V Leiden Prothrombin [id number] Lupus anticoagulant Anticardiolipin antibodies Elevated serum homocysteine Heparin-induced thrombocytopenia Other congenital or acquired thrombophilia Stroke (< 1 month) Elective arthroplasty Hip, pelvis, or leg fracture Acute spinal cord injury (< 1 month) Prophylaxis Regimen Total Risk Factor Score Risk Level Prophylaxis Regimen 0-1 Low Early ambulation 2 Moderate Order ONE of the following: *Sequential Compression Device (SCD) *Heparin 5000 units SQ BID 3-4 Higher Order ONE of the following medications: *Heparin 5000 units SQ TID *Enoxaparin/Lovenox 40 mg SQ daily (WT < 150 kg, CrCl > 30 mL/min) *Enoxaparin/Lovenox 30 mg SQ daily (WT < 150 kg, CrCl > 10-29 mL/min) *Enoxaparin/Lovenox 30 mg SQ BID (WT < 150 kg, CrCl > 30 mL/min) AND/OR *Sequential Compression Device (SCD) 5 or more Highest Order ONE of the following medications: *Heparin 5000 units SQ TID (Preferred with Epidurals) *Enoxaparin/Lovenox 40 mg SQ daily (WT < 150 kg, CrCl > 30 mL/min) *Enoxaparin/Lovenox 30 mg SQ daily (WT < 150 kg, CrCl > 10-29 mL/min) *Enoxaparin/Lovenox 30 mg SQ BID (WT < 150 kg, CrCl > 30 mL/min) AND *Sequential Compression Device (SCD) Assessment and Plan Problem List: (1) Fall ICD Code: W19.XXXA - Unspecified fall, initial encounter Status: Acute (2) Multiple rib fractures involving four or more ribs ICD Code: S22.49XA - Multiple fractures of ribs, unspecified side, initial encounter for closed fracture Status: Acute (3) Lactic acidosis ICD Code: E87.2 - Acidosis Status: Acute (4) Pleural effusion ICD Code: J90 - Pleural effusion, not elsewhere classified (5) A-fib ICD Code: I48.91 - Unspecified atrial fibrillation Assessment and Plan A/P: 1. Fall: s/p mechanical fall while walking to the bathroom, no apparent LOC. CT Head/C-Spine w/ no acute findings, Pelvic X-ray intact, Lumbar X-ray w/ no acute fracture, CT Abd/Pelvis negative for acute intra-abdominal findings, all images reviewed by me. Ambulate w/ assistance, will consult PT for eval/tx, may need Case Management for assistance w/ placement as pt lives in [facility] w/ . 2. Rib Fx: Multiple. Left 6th-10th rib fractures secondary to fall, CT Chest w/ no acute pneumothorax, images reviewed by me. Dr. Menjivar consulted, no emergent trauma/surgical intervention needed at this time. Admit to ICU for close monitoring of respiratory status. Monitor O2. Lidoderm patch prn for rib pain. DuoNeb prn for SOB. 3. Lactic Acidosis: Lactate 3.4. Temp 99.7 on arrival, no persistent fever, no obvious source of infection, U/a negative, CXR w/ negative for infiltrate. S /p Vanc/Zosyn in ER. Will hold off on antibiotics at this time as no apparent source of infection and no criteria for sepsis. IVF-caution w/ pleural effusions. Check repeat Lactic Acid, repeat CBC w/ diff in am. 4. Pleural Effusion: CT Chest w/ moderate bilateral pleural effusions, images reviewed by me. BNP pending. No evidence of fluid overload on exam. Records reviewed, Echo 08/03/17 w/ EF 50%. Start low-dose Lasix, monitor I/O, follow up BNP. 5. A-fib: Chronic. On ASA. Episode of A-fib w/ RVR while in ER, s/p Cardizem IV x1 w/ HR now 100's. Will monitor on telemetry, start Cardizem gtt for HR >120. Cardiology eval if needed for further evaluation. Trop negative. No c/o chest pain. 6. DVT Prophylaxis: SCD/Teds. 7. Social work for d/c planning as needed. 8. Labs/records/imaging reviewed by me, case discussed at length w/ ER physician. Physician Certification 2 Midnight Certification Type: Admission for Inpatient Services Order for Inpatient Services The services are ordered in accordance with Medicare regulations or non- Medicare payer requirements, as applicable. In the case of services not specified as inpatient-only, they are appropriately provided as inpatient services in accordance with the 2-midnight benchmark. Estimated LOS (days): 2 days is the estimated time the patient will need to remain in the hospital, assuming treatment plan goals are met and no additional complications. Post-Hospital Plan: Not yet determined Problem Qualifiers (1) Fall: Qualified Codes: W19.XXXA - Unspecified fall, initial encounter Sonia Mantilla MD Sep 16, 2017 19:11
[2017-09-16] MEDS ORDERED: LACTULOSE SYRUP 20 GM/30 ML CUP PO PRN (19:15)
[2017-09-16] MEDS ORDERED: LIDOCAINE HCL 5% PATCH T-DERMAL PRN (19:15)
[2017-09-16] MEDS ORDERED: ONDANSETRON HCL 4 MG/2 ML VIAL IVP PRN (19:15)
[2017-09-16] MEDS ORDERED: ACETAMINOPHEN 325 MG TAB PO PRN (19:15)
[2017-09-16] MEDS ORDERED: BISACODYL 10 MG SUPP RECTAL PRN (19:15)
[2017-09-16] MEDS ORDERED: MAGNESIUM HYDROXIDE SUSP 30 ML CUP PO PRN (19:15)
[2017-09-16] MEDS ORDERED: RESP: ALBUTEROL 2.5 MG/IPRATROPIUM 0.5 MG NEB (PRN) NEB (19:15)
[2017-09-16] MEDS ORDERED: SENNOSIDES 8.6 MG TAB PO PRN (19:15)
[2017-09-16] MEDS: MORPHINE SULFATE 2 MG/ML INJ IV PUSH PRN ×2 (19:38→22:38)
[2017-09-16] MEDS: SODIUM CHLOR 0.9% 1000 ML INJ 1,000 ML IV SCH ×2 (20:00→21:18)
[2017-09-16] MEDS: DOCUSATE SODIUM 50 MG/SENNA 8.6 MG TAB PO SCH (21:00)
[2017-09-16] MEDS: SODIUM CHLORIDE 0.9% FLUSH 10 ML FLUSH IV FLUSH SCH (21:00)
[2017-09-16] MEDS ORDERED: DILTIAZEM HCL 25 MG/5 ML VIAL IV PUSH ONE (21:30)
[2017-09-16] MEDS ORDERED: DILTIAZEM INJ 125 MG in SODIUM CHLORIDE 0.9% INJ 100 ML IV PRN (21:30)
[2017-09-16] MEDS: LIDOCAINE HCL 5% PATCH T-DERMAL SCH (21:41)
[2017-09-16] MEDS: METHOCARBAMOL 500 MG TAB PO SCH (21:41)
[2017-09-16] MEDS ORDERED: DILTIAZEM 125 MG/NS 100 ML IV PRN ×2 (22:00)
[2017-09-17] VITALS (14 sets, daily range): BP systolic 92–131; BP diastolic 64–84; PULSE 60–112; RESP 20–26; TEMP 97.9–99.1; O2SAT 94–100
[2017-09-17 02:38] LABS: AUTOMATED NEUTROPHIL # 4.8 TH/MM3 (1.8-7.7); BASOPHIL % 0.5 % (0.0-2.0); EOSINOPHIL % 0.1 % (0.0-4.0); HEMATOCRIT 36.8 % (39.0-51.0); HEMOGLOBIN 12.2 GM/DL (13.0-17.0); LYMPH % 11.2 % (9.0-44.0); LYMPHOCYTE # 0.7 TH/MM3 (1.0-4.8); MEAN CELL VOLUME 85.6 FL (80.0-100.0); MEAN CORPUSCULAR HEMOGLOBIN 28.4 PG (27.0-34.0); MEAN CORPUSCULAR HGB CONC 33.2 % (32.0-36.0); MEAN PLATELET VOLUME 7.5 FL (7.0-11.0); MONO % 7.8 % (0.0-8.0); MONOCYTE # 0.5 TH/MM3 (0-0.9); NEUT % 80.4 % (16.0-70.0); PLATELET COUNT 234 TH/MM3 (150-450); RED CELL DISTRIBUTION WIDTH 18.3 % (11.6-17.2); WHITE BLOOD COUNT 5.9 TH/MM3 (4.0-11.0)
[2017-09-17 03:00] LABS: ALBUMIN 2.2 GM/DL (3.4-5.0); ALT (GPT) 26 U/L (12-78); AST (GOT) 23 U/L (15-37); BICARBONATE 26.2 MEQ/L (21.0-32.0); BLOOD UREA NITROGEN 27 MG/DL (7-18); CALCIUM 7.8 MG/DL (8.5-10.1); CHLORIDE 103 MEQ/L (98-107); CREATININE 1.03 MG/DL (0.60-1.30); GLOMERULAR FILTRATION RATE 69 ML/MIN (>89); GLUCOSE,RANDOM 109 MG/DL (74-106); SODIUM (NA) 137 MEQ/L (136-145)
[2017-09-17 03:04] LABS: ALKALINE PHOSPHATASE 57 U/L (45-117); TOTAL BILIRUBIN ADULT 0.9 MG/DL (0.2-1.0); TROPONIN I LESS THAN 0.02 NG/ML (0.02-0.05)
--- NOTE | 2017-09-17 05:11 | RADRPT ---
EXAM DATE/TIME: 09/17/2017 04:06 [facility] COMPARISON: 17:33. CHEST SINGLE AP, September 16, 2017, 15:25. INDICATIONS : Short of breath. MEDICAL HISTORY : SURGICAL HISTORY : None. ENCOUNTER: Initial ACUITY: 2 days PAIN SCORE: 0/10 LOCATION: Bilateral chest FINDINGS: A single view of the chest demonstrates bilateral mostly basilar airspace disease and pleural effusio ns. No pneumothorax. Heart size within normal limits. Multiple lower left lateral rib fractures. CONCLUSION: 1. Basilar airspace disease and pleural effusion slightly increased from September 16. 2. Multiple lower left lateral rib fractures. No pneumothorax. Brooks Mayorga MD on September 17, 2017 at 5:06 Board Certified Radiologist. This report was verified electronically.
[2017-09-17] MEDS: METHOCARBAMOL 500 MG TAB PO SCH ×4 (05:52→20:13)
--- NOTE | 2017-09-17 08:45 | HHI.PR ---
Subjective Remarks Follow up a-fib with RVR, rib fractures. The patient states that he had some pain, but "it's better now". Denies dyspnea. Objective Vitals Vital Signs Date Time Temp Pulse Resp B/P (MAP) Pulse Ox O2 Delivery O2 Flow Rate FiO2 09/17/17 06:00 83 09/17/17 04:00 92 09/17/17 04:00 98.9 92 21 131/84 (100) 99 09/17/17 02:00 93 09/17/17 00:00 87 09/17/17 00:00 99.1 87 20 92/68 (76) 100 09/16/17 23:40 111 104/78 09/16/17 22:00 114 09/16/17 20:30 120 09/16/17 20:30 99.4 120 20 150/82 (104) 99 09/16/17 20:05 115 14 131/79 (96) 97 Nasal Cannula 2.00 09/16/17 18:53 117 20 112/67 (82) 98 Nasal Cannula 2.00 09/16/17 18:25 132 18 140/81 (100) 97 Nasal Cannula 2.00 09/16/17 17:03 177 18 194/87 (122) 96 Nasal Cannula 2.00 09/16/17 16:57 168 20 170/79 (109) 96 Nasal Cannula 2.00 09/16/17 15:37 96 Nasal Cannula 2.00 09/16/17 15:30 154 20 96 Nasal Cannula 2.00 09/16/17 15:30 126 20 162/107 (125) 96 Nasal Cannula 2.00 09/16/17 13:00 99.7 114 137/114 (122) 98 I/O 09/16/17 09/16/17 09/16/17 09/17/17 09/17/17 09/17/17 07:00 15:00 23:00 07:00 15:00 23:00 Intake Total 350 ml 50 ml Output Total 100 ml Balance 350 ml -50 ml Intake Oral 50 ml IV Total 350 ml Output Urine Total 100 ml # Voids 2 Result Diagram: 09/17/17 01409/17/17 014 Imaging Last Impressions Chest X-Ray 09/17/17 06 Signed Impressions: Service Date/Time: Sunday, September 17, 2017 04:06 - CONCLUSION: 1. Basilar airspace disease and pleural effusion slightly increased from September 16. 2. Multiple lower left lateral rib fractures. No pneumothorax. Brooks Mayorga MD Ribs X-Ray 09/16/17 1536 Signed Impressions: Service Date/Time: Saturday, September 16, 2017 15:59 - CONCLUSION: Mild to moderate displaced fractures laterally of the left sixth through 10th ribs. No pneumothorax but a small hemothorax is possible. Ramon Rivera MD Pelvis X-Ray 09/16/17 1536 Signed Impressions: Service Date/Time: Saturday, September 16, 2017 15:57 - CONCLUSION: Intact pelvis. Ramon Rivera MD Lumbar Spine X-Ray 09/16/17 1536 Signed Impressions: Service Date/Time: Saturday, September 16, 2017 15:58 - CONCLUSION: No evidence of fracture or subluxation of the lumbar spine. Moderate to severe degenerative changes. Ramon Rivera MD Head CT 09/16/17 1506 Signed Impressions: Service Date/Time: Saturday, September 16, 2017 16:22 - CONCLUSION: No acute intracranial abnormality. Ramon Rivera MD Chest CT 09/16/17 0000 Signed Impressions: Service Date/Time: Saturday, September 16, 2017 17:33 - CONCLUSION: 1. Multiple acute left-sided rib fractures. No evidence of pneumothorax. 2. Mildly dilated ascending thoracic aorta. 3. Bilateral moderate-sized pleural effusions and atelectasis. Tone Potter MD Cervical Spine CT 09/16/17 0000 Signed Impressions: Service Date/Time: Saturday, September 16, 2017 17:29 - CONCLUSION: No evidence of fracture. Prominent multilevel degenerative findings. Tone Potter MD Abdomen/Pelvis CT 09/16/17 0000 Signed Impressions: Service Date/Time: Saturday, September 16, 2017 17:23 - CONCLUSION: 1. No evidence of acute visceral organ injury or other trauma of the abdomen or pelvis. 2. There are left rib fractures and bilateral pleural effusions noted. Please refer to chest CT report. 3. Cysts of the liver and multiple small peripelvic cysts of both kidneys. Ramon Rivera MD Objective Remarks General: Elderly male in no acute distress. Heart: Irregular rhythm. No murmur. Lungs: Clear to auscultation bilaterally. No wheezes, rales, or rhonchi. Breathing is nonlabored. Abdomen: Soft, nontender, nondistended. Extremities: No lower extremity edema. SCDs. Psych: Alert and oriented. Procedures None Urinary Catheter: No Vascular Central Line Catheter: No A/P Problem List: (1) Fall ICD Code: W19.XXXA - Unspecified fall, initial encounter Status: Acute (2) Multiple rib fractures involving four or more ribs ICD Code: S22.49XA - Multiple fractures of ribs, unspecified side, initial encounter for closed fracture Status: Acute (3) Lactic acidosis ICD Code: E87.2 - Acidosis Status: Acute (4) Pleural effusion ICD Code: J90 - Pleural effusion, not elsewhere classified (5) A-fib ICD Code: I48.91 - Unspecified atrial fibrillation Assessment and Plan 1. Fall: Status post mechanical fall at home. No reported loss of consciousness. Imaging including CT of the head and C-spine is negative for fracture. Continue physical therapy. 2. Rib fractures: Left sixth through 10th ribs are fractured secondary to fall. Chest CT shows no pneumothorax. Appreciate trauma surgery evaluation. 3. Lactic acidosis: Serum lactic acid trending down. Does not appear to be secondary to infection/sepsis. 4. Pleural effusion: Continue diuretic. Monitor intake/output. Echocardiogram on 08/03/17 showed ejection fraction of 50%. 5. Atrial fibrillation with RVR: Currently on Cardizem drip. We'll transition to oral metoprolol. Consider cardiology consult if no improvement. 6. DVT prophylaxis: SCDs, QUENTIN rogers. Problem Qualifiers (1) Fall: Qualified Codes: W19.XXXA - Unspecified fall, initial encounter Manas Regan MD Sep 17, 2017 08:45
[2017-09-17] MEDS ORDERED: METOPROLOL TARTRATE 25 MG TAB PO SCH (09:00)
[2017-09-17] MEDS: LIDOCAINE HCL 5% PATCH T-DERMAL SCH (09:08)
[2017-09-17] MEDS: DOCUSATE SODIUM 50 MG/SENNA 8.6 MG TAB PO SCH ×2 (09:08→20:13)
[2017-09-17] MEDS: SODIUM CHLORIDE 0.9% FLUSH 10 ML FLUSH IV FLUSH SCH ×2 (09:08→20:13)
[2017-09-17] MEDS: FUROSEMIDE 20 MG/2 ML VIAL IV PUSH SCH ×2 (09:08→17:49)
[2017-09-17] MEDS: MORPHINE SULFATE 2 MG/ML INJ IV PUSH PRN ×2 (09:10→17:50)
[2017-09-17] MEDS ORDERED: LIDOCAINE HCL 1% 30 ML VIAL INFIL ONE (10:00)
--- NOTE | 2017-09-17 11:19 | RADRPT ---
EXAM DATE/TIME: 09/17/2017 10:48 [facility] COMPARISON: No previous studies available for comparison. INDICATIONS : No known injury. Evaluate pain and swelling in right elbow since yesterday. MEDICAL HISTORY : Hypertension. Cardiovascular disease SURGICAL HISTORY : None. ENCOUNTER: Initial ACUITY: 1 day PAIN SCORE: 4/10 LOCATION: Right Elbow. FINDINGS: Multiple view examination of the right elbow demonstrates soft tissue swelling without joint effusion , or fracture. The osseous structures are in normal alignment. Bony mineralization is normal. CONCLUSION: 1. Soft tissue swelling without fracture. Mauricio Shah MD on September 17, 2017 at 11:16 Board Certified Radiologist. This report was verified electronically.
--- NOTE | 2017-09-17 14:05 | HHI.CCPN ---
Subjective Brief History 87-year-old gentleman who lives in assisted living facility fell while going to the bathroom and hit the bathtub resulting in serial rib fractures He was transferred to our institution and resuscitated according to trauma principles Patient has multiple medical comorbidities including dementia, hypertension, coronary artery disease, atrial fibrillation with RVR Patient is not on any anticoagulants. Final injuries Left 5, 6, 7, 8, 9, 10 rib fracture Bilateral pulmonary contusion and bilateral moderate-sized hemothorax A. fib with RVR. Patient started on Cardizem drip. Hemodynamically patient this point stable and he will not be converted from his atrial fibrillation. However he needs to be rate controlled Bilateral good breath sounds over the upper parts of the lungs consistent with moderate COPD Lower parts of the lungs adult consistent with bilateral effusions which in this case a likely blood Abdomen is soft Medical help is greatly appreciated Cardiology consult pending 24 Hour Review/Hospital Course Patient's been stable since the arrival to the ICU Bilateral good breath sounds patient is not short of breath Bilateral pleural effusions and my initial thought was this was a hemothorax, however there was no reason to have right-sided effusion so I have discussed this with radiology and on measurement of density of the fluid appears to be thinner than blood cell believe this is probably an effusion from before. I discussed this with Dr. Patrick and we going to go ahead with the thoracentesis of the bigger effusion which is left, and see how patient does Objective Vital Signs Date Time Temp Pulse Resp B/P (MAP) Pulse Ox O2 Delivery O2 Flow Rate FiO2 09/17/17 10:00 112 09/17/17 09:15 22 09/17/17 08:00 98.7 129/80 (96) 99 09/17/17 07:00 Nasal Cannula 2.00 Intake and Output 09/17/17 09/17/17 09/18/17 08:00 16:00 00:00 Intake Total 50 ml Output Total 100 ml Balance -50 ml Result Diagram: 09/17/17 0141 09/17/17 0141 Imaging Last 24 hours Impressions Chest X-Ray 09/17/17 0600 Signed Impressions: Service Date/Time: Sunday, September 17, 2017 04:06 - CONCLUSION: 1. Basilar airspace disease and pleural effusion slightly increased from September 16. 2. Multiple lower left lateral rib fractures. No pneumothorax. Brooks Mayorga MD Elbow X-Ray 09/17/17 0000 Signed Impressions: Service Date/Time: Sunday, September 17, 2017 10:48 - CONCLUSION: 1. Soft tissue swelling without fracture. Mauricio Shah MD Ribs X-Ray 09/16/17 1536 Signed Impressions: Service Date/Time: Saturday, September 16, 2017 15:59 - CONCLUSION: Mild to moderate displaced fractures laterally of the left sixth through 10th ribs. No pneumothorax but a small hemothorax is possible. Ramon Rivera MD Pelvis X-Ray 09/16/17 1536 Signed Impressions: Service Date/Time: Saturday, September 16, 2017 15:57 - CONCLUSION: Intact pelvis. Ramon Rivera MD Lumbar Spine X-Ray 09/16/17 1536 Signed Impressions: Service Date/Time: Saturday, September 16, 2017 15:58 - CONCLUSION: No evidence of fracture or subluxation of the lumbar spine. Moderate to severe degenerative changes. Ramon Rivera MD Head CT 09/16/17 1506 Signed Impressions: Service Date/Time: Saturday, September 16, 2017 16:22 - CONCLUSION: No acute intracranial abnormality. Ramon Rivera MD Chest X-Ray 09/16/17 1506 Signed Impressions: Service Date/Time: Saturday, September 16, 2017 15:25 - CONCLUSION: Acute left lower rib fractures. Chronic left lower lobe consolidation versus atelectasis and [id number] left pleural effusion. Chronic mild right lung base opacity. Tone Potter MD Exam [employer] He Awake alert and somewhat confused with moderate degree of dementia Hemodynamic/Cardiac Hemodynamically patient is stable remains in atrial fibrillation now with rate control Cardiology consult is greatly appreciated Pulmonary/Respiratory Hemodynamic bilateral breath sounds some splinting of the left side and decreased breath sounds over the both lung bases consistent with bilateral large pleural effusions For CT-guided thoracentesis tomorrow Abdomen/GI Nutrition Abdomen soft on diet Renal/I&O Preserved renal function Assessment and Plan Attestation Will place bilateral chest tubes Critical care 42 minutes El Bailey MD Sep 17, 2017 14:05
[2017-09-17] MEDS ORDERED: DILTIAZEM HCL 30 MG TAB PO ONE (15:00)
[2017-09-17] MEDS: DILTIAZEM HCL 30 MG TAB PO SCH ×2 (17:49→23:53)
--- NOTE | 2017-09-17 18:33 | EKG ---
Date Performed: 09/16/2017 Time Performed: 16:56:17 PTAGE: 87 years EKG: ATRIAL FIBRILLATION WITH RAPID VENTRICULAR RESPONSE MARKED LEFT AXIS DEVIATION Left anterio r fasicular block. ABNORMAL ECG PREVIOUS TRACING : 08/07/2017 06.05 DOCTOR: Lane Morgan Interpretating Date/Time 09/17/2017 18:33:04
[2017-09-17 19:58] LABS: BICARBONATE 22.1 MEQ/L (21.0-32.0); CALCIUM 8.6 MG/DL (8.5-10.1); CREATININE 1.17 MG/DL (0.60-1.30)
[2017-09-17] MEDS: ACETAMINOPHEN/HYDROcodone 325 MG/5 MG TAB PO PRN (20:13)
[2017-09-17] MEDS: SODIUM CHLOR 0.9% 1000 ML INJ 1,000 ML IV SCH (21:03)
[2017-09-18] VITALS (14 sets, daily range): BP systolic 100–136; BP diastolic 58–74; PULSE 64–90; RESP 21–27; TEMP 97.3–98.9; O2SAT 92–98
[2017-09-18] MEDS: MORPHINE SULFATE 2 MG/ML INJ IV PUSH PRN ×3 (00:26→13:37)
[2017-09-18] MEDS: ACETAMINOPHEN/HYDROcodone 325 MG/5 MG TAB PO PRN (02:51)
[2017-09-18 04:24] LABS: AUTOMATED NEUTROPHIL # 4.9 TH/MM3 (1.8-7.7); BASOPHIL % 0.2 % (0.0-2.0); EOSINOPHIL % 0.5 % (0.0-4.0); HEMATOCRIT 32.5 % (39.0-51.0); HEMOGLOBIN 10.8 GM/DL (13.0-17.0); LYMPH % 9.4 % (9.0-44.0); LYMPHOCYTE # 0.6 TH/MM3 (1.0-4.8); MEAN CELL VOLUME 85.2 FL (80.0-100.0); MEAN CORPUSCULAR HEMOGLOBIN 28.4 PG (27.0-34.0); MEAN CORPUSCULAR HGB CONC 33.3 % (32.0-36.0); MEAN PLATELET VOLUME 7.3 FL (7.0-11.0); MONOCYTE # 0.5 TH/MM3 (0-0.9); NEUT % 81.9 % (16.0-70.0); PLATELET COUNT 198 TH/MM3 (150-450); RED BLOOD COUNT 3.81 MIL/MM3 (4.50-5.90); RED CELL DISTRIBUTION WIDTH 18.4 % (11.6-17.2); WHITE BLOOD COUNT 5.9 TH/MM3 (4.0-11.0)
[2017-09-18 05:20] LABS: BICARBONATE 26.9 MEQ/L (21.0-32.0); CREATININE 1.22 MG/DL (0.60-1.30)
[2017-09-18] MEDS: DILTIAZEM HCL 30 MG TAB PO SCH ×4 (05:27→22:28)
[2017-09-18] MEDS: METHOCARBAMOL 500 MG TAB PO SCH ×3 (05:27→22:28)
--- NOTE | 2017-09-18 05:37 | RADRPT ---
EXAM DATE/TIME: 09/18/2017 05:01 [facility] COMPARISON: CHEST SINGLE AP, September 17, 2017, 4:06. INDICATIONS : Short of breath. MEDICAL HISTORY : Cardiovascular disease. Hypertension. SURGICAL HISTORY : None. ENCOUNTER: Subsequent ACUITY: 3 days PAIN SCORE: Non-responsive. LOCATION: Bilateral chest FINDINGS: A single view of the chest demonstrates a cardiomegaly. Bilateral pleural effusions, left greater ayanna n right with basilar airspace disease. CONCLUSION: 1. Basilar airspace disease and moderate left effusion. Findings similar to September 17. Brooks Mayorga MD on September 18, 2017 at 5:32 Board Certified Radiologist. This report was verified electronically.
[2017-09-18] MEDS: SODIUM CHLOR 0.9% 1000 ML INJ 1,000 ML IV SCH (06:16)
--- NOTE | 2017-09-18 07:26 | MB ---
cc: THERON HESTER DO DATE OF CONSULTATION 09/17/2017 REASON FOR CONSULTATION Atrial fibrillation with rapid ventricular response. HISTORY OF PRESENT ILLNESS Kamar Martin is a pleasant 87-year-old male who presented to [facility] emergency room on September 16, 2017 after a fall. Apparently, the patient is at an assisted living facility for which he and his had recently moved to. Apparently, he tried to get up around 04:00 a.m. and use the restroom. He did not use his walker and upon entering the restroom had a mechanical fall landing on his ribs on his left side on the bathtub. He was able to get himself back to bed. Upon arrival of his daughter later that morning, he was complaining of more significant left rib and back pain. They called the visiting nurse and she called in pain meds for him, but the daughter was more concerned and brought him to the emergency room. While here, he was found to have multiple fractures of ribs. He was noted to be in atrial fibrillation with rapid ventricular response. Per the daughter, he has had multiple episodes of this and was previously sent home on metoprolol tartrate as well as Lasix. His blood pressure was too low and so he had been told to stop these medications, but then he has trouble with his heart rates being too high. In seeing him, he is currently hemodynamically stable with heart rates in the 90s on a Cardizem drip at 5 mg per hour. PAST MEDICAL HISTORY 1. Atrial fibrillation, anticoagulated on aspirin secondary to multiple falls. 2. Multiple falls due to weakness. 3. Hypertension 4. Dementia PAST SURGICAL HISTORY 1. Tonsillectomy 2. Bilateral inguinal hernia repair ALLERGIES NO KNOWN DRUG ALLERGIES. MEDICATIONS Aspirin 81 mg daily FAMILY HISTORY Denies premature coronary artery disease or sudden cardiac within the family. SOCIAL HISTORY Denies tobacco, alcohol or drug abuse. REVIEW OF SYSTEMS 14-systems were reviewed including osteopathic pertinent positives and negatives as above, otherwise negative. PHYSICAL EXAMINATION VITAL SIGNS: Temperature 98.7, heart rate 75, blood pressure 129/80, respirations 20, pulse ox 96% on two liters. GENERAL: The patient appears well in no acute distress, alert awake and oriented x3. HEAD, EYES, EARS, NOSE, AND THROAT: Extraocular muscles intact. Mucous membranes moist. NECK: Supple. No JVD at 45 degrees. No carotid bruits heard bilaterally. Carotid upstroke is brisk in nature. HEART: Heart is irregularly irregular. Positive first and second heart sounds with no murmurs, gallops or rubs. LUNGS: Her lungs have decreased breath sounds bilaterally. Overall, the patient has difficulty taking a deep breath due to pain. ABDOMEN: Soft, nontender, nondistended. No organomegaly noted. EXTREMITIES: Show no clubbing, cyanosis or edema. Femoral and distal pulses intact bilaterally. NEUROLOGIC: No focal deficits. SKIN: Warm, dry and intact. OSTEOPATHIC: No kyphoscoliosis or lordosis. LABORATORY FINDINGS Hemoglobin 12.2, hematocrit 36.8, platelets 234. Potassium 5.1, BUN 27, creatinine 1.03, lactic acid 3.1, troponin negative x2. BNP 292. Electrocardiogram (September 17, 2017 at 1619) atrial fibrillation with controlled ventricular response, borderline left axis deviation. IMPRESSIONS 1. Atrial fibrillation with rapid ventricular response currently on a Cardizem drip at 5 mg an hour. 2. Multiple falls in the past. 3. Multiple rib fractures due to a mechanical fall. 4. Lactic acidosis 5. Bilateral pleural effusions RECOMMENDATIONS 1. Kamar Mario presented after a fall which appeared to be mechanical in nature. In general, he has been using his walker, but got up in the middle of the night and did not use it and ended up falling and cracking his ribs. 2. This will be managed by the trauma surgeon team. 3. He has been in atrial fibrillation with rapid ventricular response, but has since been controlled on Cardizem 5 mg an hour. He was given metoprolol tartrate earlier, but I believe that he should be switched to Cardizem 30 mg every 6 hours. This may be easier to titrate then metoprolol tartrate if he has problems with blood pressure. 4. He does have bilateral pleural effusions and there is a concern for hemothorax due to his fall. This will be controlled by the trauma team. He may need to be diuresed at some point. 5. Previous echo showed a relatively normal ejection fraction. 6. As far as anticoagulation, he is obviously not a candidate other than for aspirin 81 mg daily. 7. Further recommendations will be made based on the hospital course. Thank you for allowing me to see Kamar Mario. If there are any questions, please do not hesitate to call. Theron LORENZANA/THERESAL /10:57 PM /7:15 AM
[2017-09-18] MEDS: LIDOCAINE HCL 5% PATCH T-DERMAL SCH (08:33)
[2017-09-18] MEDS: DOCUSATE SODIUM 50 MG/SENNA 8.6 MG TAB PO SCH ×2 (09:00→19:40)
[2017-09-18] MEDS: SODIUM CHLORIDE 0.9% FLUSH 10 ML FLUSH IV FLUSH SCH ×2 (09:00→19:40)
[2017-09-18] MEDS: FUROSEMIDE 20 MG/2 ML VIAL IV PUSH SCH ×2 (09:00→17:31)
[2017-09-18] MEDS ORDERED: LIDOCAINE HCL 1% 20 ML VIAL ONE (10:35)
--- NOTE | 2017-09-18 11:01 | RADRPT ---
EXAM DATE/TIME: 09/18/2017 10:27 [facility] COMPARISON: CHEST SINGLE AP, September 18, 2017, 5:01. INDICATIONS : Status post Thoracentesis. MEDICAL HISTORY : Cardiovascular disease. Chronic obstructive pulmonary disease SURGICAL HISTORY : Craniotomy. ENCOUNTER: Subsequent ACUITY: 3 days PAIN SCORE: 0/10 LOCATION: Left chest FINDINGS: A single frontal expiratory view of the chest was performed. Small bilateral pleural effusions and bi basilar densities. Left pleural effusion has significantly decreased in size. No pneumothorax. Cardio megaly. Left-sided rib fractures CONCLUSION: No pneumothorax. Small bilateral pleural effusions and bibasilar densities. Mauricio Shah MD on September 18, 2017 at 10:57 Board Certified Radiologist. This report was verified electronically.
--- NOTE | 2017-09-18 14:42 | HHI.PR ---
Subjective Remarks Follow-up atrial fibrillation with RVR/Ribs fractures 09/18/17-patient seen and examined, reports some shortness of breath and painful rib cage Objective Vitals Vital Signs Date Time Temp Pulse Resp B/P (MAP) Pulse Ox O2 Delivery O2 Flow Rate FiO2 09/18/17 14:00 74 09/18/17 12:00 74 09/18/17 10:00 72 09/18/17 08:15 97 Nasal Cannula 2.00 09/18/17 08:00 78 09/18/17 08:00 98.9 78 25 107/58 (74) 97 09/18/17 07:00 97 Room Air 09/18/17 06:00 65 09/18/17 04:00 68 09/18/17 04:00 97.3 68 24 100/63 (75) 92 09/18/17 02:00 81 09/18/17 00:00 98.2 64 22 117/59 (78) 95 09/18/17 00:00 64 09/17/17 22:00 60 09/17/17 20:54 94 21 09/17/17 20:00 80 09/17/17 20:00 97.9 80 26 126/64 (84) 96 09/17/17 19:00 95 Room Air 09/17/17 18:00 79 09/17/17 17:44 99 Nasal Cannula 2.00 09/17/17 16:00 82 09/17/17 16:00 98.2 110 24 129/80 (96) 99 I/O 09/17/17 09/17/17 09/17/17 09/18/17 09/18/17 09/18/17 07:00 15:00 23:00 07:00 15:00 23:00 Intake Total 50 ml 500 ml 1577 ml Output Total 100 ml 620 ml 400 ml Balance -50 ml -120 ml 1177 ml Intake Oral 50 ml 500 ml 480 ml IV Total 1097 ml Output Urine Total 100 ml 620 ml 400 ml # Voids 2 4 # Bowel Movements 0 0 Result Diagram: 09/18/17 0353 09/18/17 035 Imaging Last Impressions Chest X-Ray 09/18/17 0600 Signed Impressions: Service Date/Time: Monday, September 18, 2017 05:01 - CONCLUSION: 1. Basilar airspace disease and moderate left effusion. Findings similar to September 17. Brooks Mayorga MD Elbow X-Ray 09/17/17 0000 Signed Impressions: Service Date/Time: Sunday, September 17, 2017 10:48 - CONCLUSION: 1. Soft tissue swelling without fracture. Mauricio Shah MD Ribs X-Ray 09/16/17 1536 Signed Impressions: Service Date/Time: Saturday, September 16, 2017 15:59 - CONCLUSION: Mild to moderate displaced fractures laterally of the left sixth through 10th ribs. No pneumothorax but a small hemothorax is possible. Ramon Rivera MD Pelvis X-Ray 09/16/17 1536 Signed Impressions: Service Date/Time: Saturday, September 16, 2017 15:57 - CONCLUSION: Intact pelvis. Ramon Rivera MD Lumbar Spine X-Ray 09/16/17 1536 Signed Impressions: Service Date/Time: Saturday, September 16, 2017 15:58 - CONCLUSION: No evidence of fracture or subluxation of the lumbar spine. Moderate to severe degenerative changes. Ramon Rivera MD Head CT 09/16/17 1506 Signed Impressions: Service Date/Time: Saturday, September 16, 2017 16:22 - CONCLUSION: No acute intracranial abnormality. Ramon Rivera MD Chest CT 09/16/17 0000 Signed Impressions: Service Date/Time: Saturday, September 16, 2017 17:33 - CONCLUSION: 1. Multiple acute left-sided rib fractures. No evidence of pneumothorax. 2. Mildly dilated ascending thoracic aorta. 3. Bilateral moderate-sized pleural effusions and atelectasis. Tone Potter MD Cervical Spine CT 09/16/17 0000 Signed Impressions: Service Date/Time: Saturday, September 16, 2017 17:29 - CONCLUSION: No evidence of fracture. Prominent multilevel degenerative findings. Tone Potter MD Abdomen/Pelvis CT 09/16/17 0000 Signed Impressions: Service Date/Time: Saturday, September 16, 2017 17:23 - CONCLUSION: 1. No evidence of acute visceral organ injury or other trauma of the abdomen or pelvis. 2. There are left rib fractures and bilateral pleural effusions noted. Please refer to chest CT report. 3. Cysts of the liver and multiple small peripelvic cysts of both kidneys. Ramon Rivera MD Objective Remarks GENERAL: NAD SKIN: Warm and dry. HEAD: Normocephalic. EYES: No scleral icterus. No injection or drainage. NECK: Supple, trachea midline. No JVD or lymphadenopathy. CARDIOVASCULAR: Regular rate and rhythm without murmurs, gallops, or rubs. RESPIRATORY: Breath sounds decrease bilaterally. No accessory muscle use. GASTROINTESTINAL: Abdomen soft, non-tender, nondistended. MUSCULOSKELETAL: No cyanosis, or edema. BACK: Nontender without obvious deformity. No CVA tenderness. Procedures None A/P Problem List: (1) Fall ICD Code: W19.XXXA - Unspecified fall, initial encounter Status: Acute (2) Multiple rib fractures involving four or more ribs ICD Code: S22.49XA - Multiple fractures of ribs, unspecified side, initial encounter for closed fracture Status: Acute (3) Lactic acidosis ICD Code: E87.2 - Acidosis Status: Acute (4) Pleural effusion ICD Code: J90 - Pleural effusion, not elsewhere classified (5) A-fib ICD Code: I48.91 - Unspecified atrial fibrillation Assessment and Plan 87-year-old man with 1. Fall: Status post mechanical fall at home. Imaging including CT of the head and C-spine is negative for fracture. Continue physical therapy. 2. Rib fractures: Left sixth through 10th ribs are fractured secondary to fall. Chest CT shows no pneumothorax. Appreciate trauma surgery evaluation. 3. Lactic acidosis: Serum lactic acid trending down. 4. Pleural effusion: Continue diuretic. Monitor intake/output. Echocardiogram on 08/03/17 showed ejection fraction of 50%. 5. Atrial fibrillation with RVR: Currently on Cardizem 30mg Q6H Oral anticoagulation is contraindicated, continue aspirin 81 mg daily Appreciate input from cardiology 6. DVT prophylaxis: SCDs, QUENTIN rogers. Problem Qualifiers (1) Fall: Qualified Codes: W19.XXXA - Unspecified fall, initial encounter Mauricio Dumont MD Sep 18, 2017 14:42
--- NOTE | 2017-09-18 15:14 | HHI.CCPN ---
Subjective Brief History 87-year-old gentleman who lives in assisted living facility fell while going to the bathroom and hit the bathtub resulting in serial rib fractures He was transferred to our institution and resuscitated according to trauma principles Patient has multiple medical comorbidities including dementia, hypertension, coronary artery disease, atrial fibrillation with RVR Patient is not on any anticoagulants. Final injuries Left 5, 6, 7, 8, 9, 10 rib fracture Bilateral pulmonary contusion and bilateral moderate-sized hemothorax A. fib with RVR. Patient started on Cardizem drip. Hemodynamically patient this point stable and he will not be converted from his atrial fibrillation. However he needs to be rate controlled Bilateral good breath sounds over the upper parts of the lungs consistent with moderate COPD Lower parts of the lungs adult consistent with bilateral effusions which in this case a likely blood Abdomen is soft Medical help is greatly appreciated Cardiology consult pending 24 Hour Review/Hospital Course Patient's been stable since the arrival to the ICU Bilateral good breath sounds patient is not short of breath Bilateral pleural effusions and my initial thought was this was a hemothorax, however there was no reason to have right-sided effusion so I have discussed this with radiology and on measurement of density of the fluid appears to be thinner than blood cell believe this is probably an effusion from before. I discussed this with Dr. Patrick and we going to go ahead with the thoracentesis of the bigger effusion which is left, and see how patient does 09/01/17 Patient doing well at this time Neurologically stable without changes Bilateral good breath sounds over the upper gillespie however decreased over the both lung bases consistent with bilateral pleural effusions Actually breath sounds little better than yesterday Hemodynamically intact Chronic atrial fibrillation rate controlled on by mouth Cardizem Patient scheduled to undergo left thoracentesis as above noted in the yesterday' s note Patient can be transferred to floor any time once bed is available Will need aggressive physical therapy Objective Vital Signs Date Time Temp Pulse Resp B/P (MAP) Pulse Ox O2 Delivery O2 Flow Rate FiO2 09/18/17 14:00 74 09/18/17 08:15 97 Nasal Cannula 2.00 09/18/17 08:00 98.9 25 107/58 (74) 09/17/17 20:54 21 Intake and Output 09/18/17 09/18/17 09/19/17 08:00 16:00 00:00 Intake Total 1577 ml Output Total 400 ml Balance 1177 ml Result Diagram: 09/18/17 0353 09/18/17 0353 Imaging Last 24 hours Impressions Chest X-Ray 09/18/17 0600 Signed Impressions: Service Date/Time: Monday, September 18, 2017 05:01 - CONCLUSION: 1. Basilar airspace disease and moderate left effusion. Findings similar to September 17. Brooks Mayorga MD Chest X-Ray 09/18/17 0000 Signed Impressions: Service Date/Time: Monday, September 18, 2017 10:27 - CONCLUSION: No pneumothorax. Small bilateral pleural effusions and bibasilar densities. MD Leo Higgins Slobodan MD Sep 18, 2017 15:14
--- NOTE | 2017-09-18 16:42 | RADRPT ---
EXAM DATE/TIME: 09/18/2017 09:42 [facility] COMPARISON: No previous studies available for comparison. EXTERNAL COMPARISON: CELIA Eller, CTA Chest, Jun 26 2017. INDICATIONS : Left pleural effusion. MEDICAL HISTORY : Hypertension. Arthritis. Bilateral hearing loss. Brain bleed. Head trauma. Dizziness. Afib. COPD. An ticoagulant therapy, Aspirin 81mg. SURGICAL HISTORY : Tonsillectomy. Bilateral inguinal hernia. Orthopedic surgery, knee. Brain bleed surgery. ENCOUNTER: Initial ACUITY: 1 day PAIN SCORE: 4/10 LOCATION: Left chest FLUID: Total volume of 1000 cc of clear, red fluid was removed. Fluid was discarded. Thoracentesis was therapeutic only. TECHNIQUE: 1. Ultrasound guidance for thoracentesis. 2. Thoracentesis. The risks, benefits, and alternatives to ultrasound guided thoracentesis were explained to the patien t in lay simple terms, including the risk of bleeding and infection. Written and verbal informed con sent was obtained. Appropriate area for thoracentesis was marked under ultrasound guidance with the patient in the uprig ht position. Overlying skin was prepped and draped in the usual sterile fashion and with local anest hetic, a dermatotomy was made with an 11 blade scalpel. A 6 Chinese thoracentesis catheter was placed in the pleural space and fluid was removed. Catheter was then removed and a sterile dressing applie d. There were no immediate complications. The patient tolerated the procedure well and the left the ultrasound suite in stable condition. Chest radiograph is to be obtained. CONCLUSION: Uncomplicated ultrasound guided thoracentesis. Mauricio Shah MD on September 18, 2017 at 16:39 Board Certified Radiologist. This report was verified electronically.
--- NOTE | 2017-09-18 23:32 | PD.CARD.PN ---
Subjective Subjective Remarks Patient was seen earlier today, late entry note No pain except with deep breathing Heart rates controlled off Cardizem drip Objective Medications Current Medications Medications (Trade) Dose Ordered Sig/Tyler Route Start Time Stop Time Status Last Admin (NS Flush) 2 ml UNSCH PRN IV FLUSH 09/16/17 19:15 (NS Flush) 2 ml BID IV FLUSH 09/16/17 21:00 09/18/17 19:40 (Zofran Inj) 4 mg Q6H PRN IVP 09/16/17 19:15 (Tylenol) 650 mg Q6H PRN PO 09/16/17 19:15 ([place] 5-325 Mg) 1 tab Q4H PRN PO 09/16/17 19:15 09/18/17 02:51 (Morphine Inj) 2 mg Q3H PRN IV PUSH 09/16/17 19:15 09/18/17 13:37 (Marla-Colace) 1 tab BID PO 09/16/17 21:00 09/18/17 19:40 (Milk Of Magnesia Liq) 30 ml Q12H PRN PO 09/16/17 19:15 (Senokot) 17.2 mg Q12H PRN PO 09/16/17 19:15 (Dulcolax Supp) 10 mg DAILY PRN RECTAL 09/16/17 19:15 (Lactulose Liq) 30 ml DAILY PRN PO 09/16/17 19:15 (Duoneb Neb) 1 ampule Q4HR NEB PRN NEB 09/16/17 19:15 (Lidoderm 5% Patch.12 Hr) 1 patch DAILY PRN T-DERMAL 09/16/17 19:15 (Lasix Inj) 20 mg BID@09,18 IV PUSH 09/17/17 09:00 09/18/17 17:31 (Robaxin) 500 mg Q8HR PO 09/16/17 22:00 09/18/17 22:28 (Lidoderm 5% Patch.12 Hr) 1 patch DAILY T-DERMAL 09/16/17 21:00 09/18/17 08:33 Diltiazem HCl 125 mg/Sodium Chloride 125 ml @ 5 mls/hr TITRATE PRN IV 09/16/17 22:00 09/16/17 23:40 (Cardizem) 30 mg Q6HR PO 09/17/17 18:00 09/18/17 22:28 Vital Signs / I&O Vital Signs Date Time Temp Pulse Resp B/P (MAP) Pulse Ox O2 Delivery O2 Flow Rate FiO2 09/18/17 22:00 90 09/18/17 20:19 95 21 09/18/17 20:00 82 09/18/17 20:00 98.0 80 21 119/74 (89) 98 09/18/17 19:00 98 Room Air 09/18/17 18:00 79 09/18/17 16:00 98.5 77 27 136/61 (86) 95 09/18/17 16:00 77 09/18/17 14:00 74 09/18/17 12:00 74 09/18/17 12:00 98.9 73 26 118/60 (79) 93 09/18/17 10:00 72 09/18/17 08:15 97 Nasal Cannula 2.00 09/18/17 08:00 78 09/18/17 08:00 98.9 78 25 107/58 (74) 97 09/18/17 07:00 97 Room Air 09/18/17 06:00 65 09/18/17 04:00 68 09/18/17 04:00 97.3 68 24 100/63 (75) 92 09/18/17 02:00 81 09/18/17 00:00 98.2 64 22 117/59 (78) 95 09/18/17 00:00 64 I/O 09/18/17 09/18/17 09/18/17 09/19/17 09/19/17 09/19/17 07:00 15:00 23:00 07:00 15:00 23:00 Intake Total 1577 ml 1030 ml Output Total 400 ml 400 ml Balance 1177 ml 630 ml Intake Oral 480 ml 480 ml IV Total 1097 ml 550 ml Output Urine Total 400 ml 400 ml # Bowel Movements 0 0 Physical Exam GENERAL: NAD SKIN: Warm and dry. HEAD: Atraumatic. Normocephalic. EYES: Pupils equal and round. No scleral icterus. No injection or drainage. ENT: No nasal bleeding or discharge. Mucous membranes pink and moist. NECK: Trachea midline. No JVD. CARDIOVASCULAR: Irregularly irregular RESPIRATORY: No accessory muscle use. Clear to auscultation. Breath sounds equal bilaterally. GASTROINTESTINAL: Abdomen soft, non-tender, nondistended. Hepatic and splenic margins not palpable. MUSCULOSKELETAL: Extremities without clubbing, cyanosis, or edema. No obvious deformities. NEUROLOGICAL: Awake and alert. No obvious cranial nerve deficits. Motor grossly within normal limits. Five out of 5 muscle strength in the arms and legs. Normal speech. PSYCHIATRIC: Appropriate mood and affect; insight and judgment normal. Laboratory Laboratory Tests Test 09/18/17 03:53 White Blood Count 5.9 TH/MM3 Red Blood Count 3.81 MIL/MM3 Hemoglobin 10.8 GM/DL Hematocrit 32.5 % Mean Corpuscular Volume 85.2 FL Mean Corpuscular Hemoglobin 28.4 PG Mean Corpuscular Hemoglobin Concent 33.3 % Red Cell Distribution Width 18.4 % Platelet Count 198 TH/MM3 Mean Platelet Volume 7.3 FL Neutrophils (%) (Auto) 81.9 % Lymphocytes (%) (Auto) 9.4 % Monocytes (%) (Auto) 8.0 % Eosinophils (%) (Auto) 0.5 % Basophils (%) (Auto) 0.2 % Neutrophils # (Auto) 4.9 TH/MM3 Lymphocytes # (Auto) 0.6 TH/MM3 Monocytes # (Auto) 0.5 TH/MM3 Eosinophils # (Auto) 0.0 TH/MM3 Basophils # (Auto) 0.0 TH/MM3 CBC Comment DIFF FINAL Differential Comment Blood Urea Nitrogen 33 MG/DL Creatinine 1.22 MG/DL Random Glucose 112 MG/DL Calcium Level 8.0 MG/DL Sodium Level 138 MEQ/L Potassium Level 4.2 MEQ/L Chloride Level 104 MEQ/L Carbon Dioxide Level 26.9 MEQ/L Anion Gap 7 MEQ/L Estimat Glomerular Filtration Rate 56 ML/MIN Imaging Last 24 hours Impressions Chest X-Ray 09/18/17 0600 Signed Impressions: Service Date/Time: Monday, September 18, 2017 05:01 - CONCLUSION: 1. Basilar airspace disease and moderate left effusion. Findings similar to September 17. Brooks Mayorga MD Thoracentesis Ultrasound 09/18/17 0000 Signed Impressions: Service Date/Time: Monday, September 18, 2017 09:42 - CONCLUSION: Uncomplicated ultrasound guided thoracentesis. Mauricio Shah MD Chest X-Ray 09/18/17 0000 Signed Impressions: Service Date/Time: Monday, September 18, 2017 10:27 - CONCLUSION: No pneumothorax. Small bilateral pleural effusions and bibasilar densities. Mauricio Shah MD Assessment and Plan Problem List: (1) A-fib ICD Codes: I48.91 - Unspecified atrial fibrillation (2) Multiple rib fractures involving four or more ribs ICD Codes: S22.49XA - Multiple fractures of ribs, unspecified side, initial encounter for closed fracture Status: Acute (3) Bilateral pleural effusion ICD Codes: J90 - Pleural effusion, not elsewhere classified Status: Acute (4) Fall ICD Codes: W19.XXXA - Unspecified fall, initial encounter Status: Acute (5) Lactic acidosis ICD Codes: E87.2 - Acidosis Status: Acute (6) Acute exacerbation of CHF (congestive heart failure) ICD Codes: I50.9 - Heart failure, unspecified Assessment and Plan 1) AFib with RVR Now controlled on Cardizem PO, can be changed to long acting on discharge Not a candidate for anti-coagulation, con't ASA 81mg 2) Multiple falls 3) Broken ribs secondary to fall 4) Bilateral effusion For thoracentesis today Problem Qualifiers (1) Fall: Qualified Codes: W19.XXXA - Unspecified fall, initial encounter Theron Loja DO Sep 18, 2017 23:32
[2017-09-19] VITALS (13 sets, daily range): BP systolic 91–128; BP diastolic 52–69; PULSE 20–96; RESP 17–27; TEMP 97.5–98.9; O2SAT 93–99
--- NOTE | 2017-09-19 00:59 | EKG ---
Date Performed: 09/17/2017 Time Performed: 16:19:02 PTAGE: 87 years EKG: ATRIAL FIBRILLATION BORDERLINE LEFT AXIS DEVIATION ABNORMAL RHYTHM ECG PREVIOUS TRACING : 09/16/2017 16.56 Compared to prior tracing, rate has decreased DOCTOR: Theron Loja Interpretating Date/Time 09/19/2017 00:58:03
[2017-09-19 03:55] LABS: AUTOMATED NEUTROPHIL # 5.2 TH/MM3 (1.8-7.7); BASOPHIL % 0.3 % (0.0-2.0); EOSINOPHIL % 0.6 % (0.0-4.0); HEMATOCRIT 34.3 % (39.0-51.0); HEMOGLOBIN 11.4 GM/DL (13.0-17.0); LYMPH % 8.4 % (9.0-44.0); LYMPHOCYTE # 0.5 TH/MM3 (1.0-4.8); MEAN CELL VOLUME 86.6 FL (80.0-100.0); MEAN CORPUSCULAR HEMOGLOBIN 28.7 PG (27.0-34.0); MEAN CORPUSCULAR HGB CONC 33.2 % (32.0-36.0); MEAN PLATELET VOLUME 7.5 FL (7.0-11.0); MONO % 5.6 % (0.0-8.0); MONOCYTE # 0.3 TH/MM3 (0-0.9); NEUT % 85.1 % (16.0-70.0); PLATELET COUNT 203 TH/MM3 (150-450); RED BLOOD COUNT 3.96 MIL/MM3 (4.50-5.90); RED CELL DISTRIBUTION WIDTH 18.5 % (11.6-17.2); WHITE BLOOD COUNT 6.1 TH/MM3 (4.0-11.0)
[2017-09-19 03:59] LABS: BICARBONATE 25.9 MEQ/L (21.0-32.0); CALCIUM 8.3 MG/DL (8.5-10.1); CREATININE 1.13 MG/DL (0.60-1.30)
[2017-09-19] MEDS: METHOCARBAMOL 500 MG TAB PO SCH ×3 (05:42→20:20)
[2017-09-19] MEDS: DILTIAZEM HCL 30 MG TAB PO SCH ×3 (05:42→17:25)
[2017-09-19] MEDS: ACETAMINOPHEN/HYDROcodone 325 MG/5 MG TAB PO PRN ×2 (06:19→12:19)
--- NOTE | 2017-09-19 06:39 | RADRPT ---
EXAM DATE/TIME: 09/19/2017 05:48 [facility] COMPARISON: CHEST EXPIRATION ONLY, September 18, 2017, 10:27. INDICATIONS : Shortness of breath. MEDICAL HISTORY : Hypertension. Cardiovascular disease. SURGICAL HISTORY : None. ENCOUNTER: Subsequent ACUITY: 3 days PAIN SCORE: Non-responsive. LOCATION: Bilateral chest FINDINGS: A single view of the chest demonstrates bilateral mostly basilar airspace disease and pleural effusio ns. Left pleural effusion has decreased in size status post left thoracentesis with tiny left apical pneumothorax present. Heart size within normal limits. CONCLUSION: Small left apical pneumothorax. Bilateral mostly basilar airspace disease and pleural effusions. Inte rval thoracentesis with decrease in size of left effusion. Brooks Mayorga MD on September 19, 2017 at 6:35 Board Certified Radiologist. This report was verified electronically.
[2017-09-19] MEDS: FAMOTIDINE 20 MG TAB PO SCH ×2 (08:44→20:20)
[2017-09-19] MEDS: LACTULOSE SYRUP 20 GM/30 ML CUP PO SCH (08:44)
[2017-09-19] MEDS: LIDOCAINE HCL 5% PATCH T-DERMAL SCH (08:44)
[2017-09-19] MEDS: DOCUSATE SODIUM 50 MG/SENNA 8.6 MG TAB PO SCH ×2 (08:44→20:20)
[2017-09-19] MEDS: SODIUM CHLORIDE 0.9% FLUSH 10 ML FLUSH IV FLUSH SCH ×2 (08:45→20:20)
[2017-09-19] MEDS: FUROSEMIDE 20 MG/2 ML VIAL IV PUSH SCH ×2 (08:45→17:25)
--- NOTE | 2017-09-19 11:02 | HHI.PR ---
Subjective Remarks Follow-up atrial fibrillation with RVR/Ribs fractures 09/18/17-patient seen and examined, reports some shortness of breath and painful rib cage 09/19/17-patient seen and examined, denies any chest pain or shortness of breath. Currently on PO Cardizem and rate control Objective Vitals Vital Signs Date Time Temp Pulse Resp B/P (MAP) Pulse Ox O2 Delivery O2 Flow Rate FiO2 09/19/17 08:22 98 21 09/19/17 08:00 97.5 83 24 91/56 (68) 94 09/19/17 08:00 83 09/19/17 07:00 95 Room Air 09/19/17 06:00 91 09/19/17 04:00 88 09/19/17 04:00 98.9 88 26 128/64 (85) 99 09/19/17 02:00 74 09/19/17 00:00 98.6 85 24 119/66 (83) 94 09/19/17 00:00 76 09/18/17 22:00 90 09/18/17 20:19 95 21 09/18/17 20:00 82 09/18/17 20:00 98.0 80 21 119/74 (89) 98 09/18/17 19:00 98 Room Air 09/18/17 18:00 79 09/18/17 16:00 98.5 77 27 136/61 (86) 95 09/18/17 16:00 77 09/18/17 14:00 74 09/18/17 12:00 74 09/18/17 12:00 98.9 73 26 118/60 (79) 93 I/O 09/18/17 09/18/17 09/18/17 09/19/17 09/19/17 09/19/17 07:00 15:00 23:00 07:00 15:00 23:00 Intake Total 1577 ml 1030 ml 240 ml Output Total 400 ml 400 ml 700 ml Balance 1177 ml 630 ml -460 ml Intake Oral 480 ml 480 ml 240 ml IV Total 1097 ml 550 ml Output Urine Total 400 ml 400 ml 700 ml # Bowel Movements 0 0 0 Result Diagram: 09/19/17 0306 09/19/17 0306 Imaging Last Impressions Chest X-Ray 09/19/17 06 Signed Impressions: Service Date/Time: Tuesday, September 19, 2017 05:48 - CONCLUSION: Small left apical pneumothorax. Bilateral mostly basilar airspace disease and pleural effusions. Interval thoracentesis with decrease in size of left effusion. Brooks Mayorga MD Thoracentesis Ultrasound 09/18/17 0000 Signed Impressions: Service Date/Time: Monday, September 18, 2017 09:42 - CONCLUSION: Uncomplicated ultrasound guided thoracentesis. Mauricio Shah MD Elbow X-Ray 09/17/17 0000 Signed Impressions: Service Date/Time: Sunday, September 17, 2017 10:48 - CONCLUSION: 1. Soft tissue swelling without fracture. Mauricio Shah MD Ribs X-Ray 09/16/17 1536 Signed Impressions: Service Date/Time: Saturday, September 16, 2017 15:59 - CONCLUSION: Mild to moderate displaced fractures laterally of the left sixth through 10th ribs. No pneumothorax but a small hemothorax is possible. Ramon Rivera MD Pelvis X-Ray 09/16/17 1536 Signed Impressions: Service Date/Time: Saturday, September 16, 2017 15:57 - CONCLUSION: Intact pelvis. Ramon Rivera MD Lumbar Spine X-Ray 09/16/17 1536 Signed Impressions: Service Date/Time: Saturday, September 16, 2017 15:58 - CONCLUSION: No evidence of fracture or subluxation of the lumbar spine. Moderate to severe degenerative changes. Ramon Rivera MD Head CT 09/16/17 1506 Signed Impressions: Service Date/Time: Saturday, September 16, 2017 16:22 - CONCLUSION: No acute intracranial abnormality. Ramon Rivera MD Chest CT 09/16/17 0000 Signed Impressions: Service Date/Time: Saturday, September 16, 2017 17:33 - CONCLUSION: 1. Multiple acute left-sided rib fractures. No evidence of pneumothorax. 2. Mildly dilated ascending thoracic aorta. 3. Bilateral moderate-sized pleural effusions and atelectasis. Tone Potter MD Cervical Spine CT 09/16/17 0000 Signed Impressions: Service Date/Time: Saturday, September 16, 2017 17:29 - CONCLUSION: No evidence of fracture. Prominent multilevel degenerative findings. Tone Potter MD Abdomen/Pelvis CT 09/16/17 0000 Signed Impressions: Service Date/Time: Saturday, September 16, 2017 17:23 - CONCLUSION: 1. No evidence of acute visceral organ injury or other trauma of the abdomen or pelvis. 2. There are left rib fractures and bilateral pleural effusions noted. Please refer to chest CT report. 3. Cysts of the liver and multiple small peripelvic cysts of both kidneys. Ramon Rivera MD Objective Remarks GENERAL: NAD SKIN: Warm and dry. HEAD: Normocephalic. EYES: No scleral icterus. No injection or drainage. NECK: Supple, trachea midline. No JVD or lymphadenopathy. CARDIOVASCULAR: Regular rate and rhythm without murmurs, gallops, or rubs. RESPIRATORY: Breath sounds decrease bilaterally. No accessory muscle use. GASTROINTESTINAL: Abdomen soft, non-tender, nondistended. MUSCULOSKELETAL: No cyanosis, or edema. BACK: Nontender without obvious deformity. No CVA tenderness. Procedures None A/P Problem List: (1) Fall ICD Code: W19.XXXA - Unspecified fall, initial encounter Status: Acute (2) Multiple rib fractures involving four or more ribs ICD Code: S22.49XA - Multiple fractures of ribs, unspecified side, initial encounter for closed fracture Status: Acute (3) Lactic acidosis ICD Code: E87.2 - Acidosis Status: Acute (4) Pleural effusion ICD Code: J90 - Pleural effusion, not elsewhere classified (5) A-fib ICD Code: I48.91 - Unspecified atrial fibrillation Assessment and Plan 87-year-old man with 1. Fall: Status post mechanical fall at home. Imaging including CT of the head and C-spine is negative for fracture. Continue physical therapy. 2. Rib fractures: Left sixth through 10th ribs are fractured secondary to fall. Chest CT shows no pneumothorax. Appreciate trauma surgery evaluation. 3. Lactic acidosis: Serum lactic acid trending down. 4. Pleural effusion: Continue diuretic. Monitor intake/output. Echocardiogram on 08/03/17 showed ejection fraction of 50%. 5. Atrial fibrillation with RVR: Currently on Cardizem 30mg Q6H Oral anticoagulation is contraindicated, continue aspirin 81 mg daily Appreciate input from cardiology 6. DVT prophylaxis: SCDs, QUENTIN rogers. Discharge Planning Discharge per Trauma surgery Problem Qualifiers (1) Fall: Qualified Codes: W19.XXXA - Unspecified fall, initial encounter Mauricio Dumont MD Sep 19, 2017 11:02
[2017-09-19] MEDS: ENOXAPARIN SODIUM 40 MG/0.4 ML SYRINGE SQ SCH (11:42)
--- NOTE | 2017-09-19 13:16 | PD.CARD.PN ---
Subjective Subjective Remarks No pain except with deep breathing Heart rates controlled off Cardizem drip Objective Medications Current Medications Medications (Trade) Dose Ordered Sig/Tyler Route Start Time Stop Time Status Last Admin (NS Flush) 2 ml UNSCH PRN IV FLUSH 09/16/17 19:15 (NS Flush) 2 ml BID IV FLUSH 09/16/17 21:00 09/19/17 08:45 (Zofran Inj) 4 mg Q6H PRN IVP 09/16/17 19:15 (Tylenol) 650 mg Q6H PRN PO 09/16/17 19:15 ([place] 5-325 Mg) 1 tab Q4H PRN PO 09/16/17 19:15 09/19/17 12:19 (Marla-Colace) 1 tab BID PO 09/16/17 21:00 09/19/17 08:44 (Senokot) 17.2 mg Q12H PRN PO 09/16/17 19:15 (Dulcolax Supp) 10 mg DAILY PRN RECTAL 09/16/17 19:15 (Duoneb Neb) 1 ampule Q4HR NEB PRN NEB 09/16/17 19:15 (Lasix Inj) 20 mg BID@,18 IV PUSH 09/17/17 09:00 09/19/17 08:45 (Robaxin) 500 mg Q8HR PO 09/16/17 22:00 09/19/17 05:42 (Lidoderm 5% Patch.12 Hr) 1 patch DAILY T-DERMAL 09/16/17 21:00 09/19/17 08:44 Diltiazem HCl 125 mg/Sodium Chloride 125 ml @ 5 mls/hr TITRATE PRN IV 09/16/17 22:00 09/16/17 23:40 (Cardizem) 30 mg Q6HR PO 09/17/17 18:00 09/19/17 11:42 (Lactulose Liq) 30 ml DAILY PO 09/19/17 09:00 09/19/17 08:44 (Milk Of Magnesia Liq) 30 ml Q12HR PO 09/19/17 21:00 (Pepcid) 20 mg BID PO 09/19/17 09:00 09/19/17 08:44 (Lovenox Inj) 40 mg Q24H SQ 09/19/17 12:00 09/19/17 11:42 Vital Signs / I&O Vital Signs Date Time Temp Pulse Resp B/P (MAP) Pulse Ox O2 Delivery O2 Flow Rate FiO2 09/19/17 08:22 98 21 09/19/17 08:00 97.5 83 24 91/56 (68) 94 09/19/17 08:00 83 09/19/17 07:00 95 Room Air 09/19/17 06:00 91 09/19/17 04:00 88 09/19/17 04:00 98.9 88 26 128/64 (85) 99 09/19/17 02:00 74 09/19/17 00:00 98.6 85 24 119/66 (83) 94 09/19/17 00:00 76 09/18/17 22:00 90 09/18/17 20:19 95 21 09/18/17 20:00 82 09/18/17 20:00 98.0 80 21 119/74 (89) 98 09/18/17 19:00 98 Room Air 09/18/17 18:00 79 09/18/17 16:00 98.5 77 27 136/61 (86) 95 09/18/17 16:00 77 09/18/17 14:00 74 I/O 09/18/17 09/18/17 09/18/17 09/19/17 09/19/17 09/19/17 07:00 15:00 23:00 07:00 15:00 23:00 Intake Total 1577 ml 1030 ml 240 ml Output Total 400 ml 400 ml 700 ml Balance 1177 ml 630 ml -460 ml Intake Oral 480 ml 480 ml 240 ml IV Total 1097 ml 550 ml Output Urine Total 400 ml 400 ml 700 ml # Bowel Movements 0 0 0 Physical Exam GENERAL: NAD SKIN: Warm and dry. HEAD: Atraumatic. Normocephalic. EYES: Pupils equal and round. No scleral icterus. No injection or drainage. ENT: No nasal bleeding or discharge. Mucous membranes pink and moist. NECK: Trachea midline. No JVD. CARDIOVASCULAR: Irregularly irregular RESPIRATORY: No accessory muscle use. Clear to auscultation. Breath sounds equal bilaterally. GASTROINTESTINAL: Abdomen soft, non-tender, nondistended. Hepatic and splenic margins not palpable. MUSCULOSKELETAL: Extremities without clubbing, cyanosis, or edema. No obvious deformities. NEUROLOGICAL: Awake and alert. No obvious cranial nerve deficits. Motor grossly within normal limits. Five out of 5 muscle strength in the arms and legs. Normal speech. PSYCHIATRIC: Appropriate mood and affect; insight and judgment normal. Laboratory Laboratory Tests Test 09/19/17 03:06 White Blood Count 6.1 TH/MM3 Red Blood Count 3.96 MIL/MM3 Hemoglobin 11.4 GM/DL Hematocrit 34.3 % Mean Corpuscular Volume 86.6 FL Mean Corpuscular Hemoglobin 28.7 PG Mean Corpuscular Hemoglobin Concent 33.2 % Red Cell Distribution Width 18.5 % Platelet Count 203 TH/MM3 Mean Platelet Volume 7.5 FL Neutrophils (%) (Auto) 85.1 % Lymphocytes (%) (Auto) 8.4 % Monocytes (%) (Auto) 5.6 % Eosinophils (%) (Auto) 0.6 % Basophils (%) (Auto) 0.3 % Neutrophils # (Auto) 5.2 TH/MM3 Lymphocytes # (Auto) 0.5 TH/MM3 Monocytes # (Auto) 0.3 TH/MM3 Eosinophils # (Auto) 0.0 TH/MM3 Basophils # (Auto) 0.0 TH/MM3 CBC Comment DIFF FINAL Differential Comment Blood Urea Nitrogen 37 MG/DL Creatinine 1.13 MG/DL Random Glucose 112 MG/DL Calcium Level 8.3 MG/DL Sodium Level 137 MEQ/L Potassium Level 4.3 MEQ/L Chloride Level 104 MEQ/L Carbon Dioxide Level 25.9 MEQ/L Anion Gap 7 MEQ/L Estimat Glomerular Filtration Rate 62 ML/MIN Imaging Last 24 hours Impressions Chest X-Ray 09/19/17 0600 Signed Impressions: Service Date/Time: Tuesday, September 19, 2017 05:48 - CONCLUSION: Small left apical pneumothorax. Bilateral mostly basilar airspace disease and pleural effusions. Interval thoracentesis with decrease in size of left effusion. Brooks Mayorga MD Assessment and Plan Problem List: (1) A-fib ICD Codes: I48.91 - Unspecified atrial fibrillation (2) Multiple rib fractures involving four or more ribs ICD Codes: S22.49XA - Multiple fractures of ribs, unspecified side, initial encounter for closed fracture Status: Acute (3) Bilateral pleural effusion ICD Codes: J90 - Pleural effusion, not elsewhere classified Status: Acute (4) Fall ICD Codes: W19.XXXA - Unspecified fall, initial encounter Status: Acute (5) Lactic acidosis ICD Codes: E87.2 - Acidosis Status: Acute (6) Acute exacerbation of CHF (congestive heart failure) ICD Codes: I50.9 - Heart failure, unspecified Assessment and Plan 1) AFib with RVR Now controlled on Cardizem PO, can be changed to long acting on discharge Not a candidate for anti-coagulation, con't ASA 81mg Will watch blood pressure, mostly low normal 2) Multiple falls 3) Broken ribs secondary to fall 4) Bilateral effusion s/p thoracentesis Problem Qualifiers (1) Fall: Qualified Codes: W19.XXXA - Unspecified fall, initial encounter Theron Loja DO Sep 19, 2017 13:16
--- NOTE | 2017-09-19 13:47 | HHI.CCPN ---
Subjective Brief History CONFEDERATED YAKAMA: This is a [id number] gentleman who lives in assisted living facility fell while going to the bathroom and hit the bathtub resulting in serial rib fractures He was transferred to our institution and resuscitated according to trauma principles Patient has multiple medical comorbidities including dementia, hypertension, coronary artery disease, atrial fibrillation with RVR Patient is not on any anticoagulants. Final injuries Left 5, 6, 7, 8, 9, 10 rib fracture Bilateral pulmonary contusion and bilateral moderate-sized hemothorax A. fib with RVR. Patient started on Cardizem drip. Hemodynamically patient this point stable and he will not be converted from his atrial fibrillation. However he needs to be rate controlled Bilateral good breath sounds over the upper parts of the lungs consistent with moderate COPD Lower parts of the lungs adult consistent with bilateral effusions which in this case a likely blood Abdomen is soft Medical help is greatly appreciated Cardiology consult pending INJURIES: LEFT rib fxs (6-10) LEFT JIN LEFT pulmonary contusion PMHx: Afib, COPD, TBI, dementia 24 Hour Review/Hospital Course Patient's been stable since the arrival to the ICU Bilateral good breath sounds patient is not short of breath Bilateral pleural effusions and my initial thought was this was a hemothorax, however there was no reason to have right-sided effusion so I have discussed this with radiology and on measurement of density of the fluid appears to be thinner than blood cell believe this is probably an effusion from before. I discussed this with Dr. Patrick and we going to go ahead with the thoracentesis of the bigger effusion which is left, and see how patient does 09/18/17 Patient doing well at this time Neurologically stable without changes Bilateral good breath sounds over the upper gillespie however decreased over the both lung bases consistent with bilateral pleural effusions Actually breath sounds little better than yesterday Hemodynamically intact Chronic atrial fibrillation rate controlled on by mouth Cardizem Patient scheduled to undergo left thoracentesis as above noted in the yesterday' s note Patient can be transferred to floor any time once bed is available Will need aggressive physical therapy 09/19/2017 PTD: 3 Pt lying in bed. No distress noted. at bedside. VSS. Pt may transfer to the med/surg floor one a bed becomes available. Pt would benefit from rehab. Objective Vital Signs Date Time Temp Pulse Resp B/P (MAP) Pulse Ox O2 Delivery O2 Flow Rate FiO2 09/19/17 12:00 97.8 96 26 98/69 (79) 98 09/19/17 08:22 21 09/19/17 07:00 Room Air 09/18/17 08:15 2.00 Intake and Output 09/19/17 09/19/17 09/19/17 07:59 15:59 23:59 Intake Total 240 ml Output Total 700 ml Balance -460 ml Result Diagram: 09/19/17 0306 09/19/17 0306 Imaging Last 24 hours Impressions Chest X-Ray 09/19/17 0600 Signed Impressions: Service Date/Time: Tuesday, September 19, 2017 05:48 - CONCLUSION: Small left apical pneumothorax. Bilateral mostly basilar airspace disease and pleural effusions. Interval thoracentesis with decrease in size of left effusion. Brooks Mayorga MD Objective Remarks GENERAL: This is an 87 year old male lying in bed. No distress noted. SKIN: Warm and dry. HEAD: Atraumatic. Normocephalic. EYES: PERRLA ENT: No nasal bleeding or discharge. Mucous membranes pink and moist. NECK: Trachea midline. No JVD. CARDIOVASCULAR: Regular rate and rhythm. RESPIRATORY: No accessory muscle use. Lungs are clear to auscultation. Breath sounds equal bilaterally. No distress or dyspnea. GASTROINTESTINAL: BS + x 4 quads. Abdomen soft, non-tender, nondistended. MUSCULOSKELETAL: Extremities without cyanosis, or edema. + peripheral pulses x 4 extremities. Warm with good capillary refill and sensation. MAEW. NEUROLOGICAL: Awake and alert. Normal speech and pattern. . Urinary Catheter Assessment Urinary Catheter: No Vascular Central Line Catheter Vascular Central Line Catheter: No Assessment and Plan Assessment: (1) Fall ICD Code: W19.XXXA - Unspecified fall, initial encounter Status: Acute (2) Bilateral pleural effusion ICD Code: J90 - Pleural effusion, not elsewhere classified Status: Acute (3) Multiple rib fractures involving four or more ribs ICD Code: S22.49XA - Multiple fractures of ribs, unspecified side, initial encounter for closed fracture Status: Acute (4) Pleural effusion ICD Code: J90 - Pleural effusion, not elsewhere classified Status: Acute (5) A-fib ICD Code: I48.91 - Unspecified atrial fibrillation Status: Acute Plan CONFEDERATED YAKAMA: This is a 88 year old male who fell from a standing in the shower in the [place]. INJURIES: LEFT rib fxs (6-10) LEFT JIN LEFT pulmonary contusion PMHx: Afib, COPD, TBI, dementia Procedures: 09/18: CT guided LEFT thoracentesis (1,000 clear red) Consults: . Cardiology. Case Management __ Diet: Regular heart healthy diet. Encourage good po intake. Pulmonary: Encourage good pulmonary toileting. IS and acapella at bedside and pt encouraged to use. Rationale for use explained to patient, and verbalized understanding. Duonebs. 09/18: LEFT thoracentesis. Obtained 1,000 ml clear red drainage. CXR shows small apical PTX. F/U CXR in the AM. Cardizem 30 mg q 6h. Cardiology following. PAIN Management: Hebo 5mg q 4h. Robaxin 500 mg q 8h. Lidoderm patch. Activity: OOB. PT and OT ordered GI prophylaxis: Pepcid 20 mg BID. Bowel regimen: Marla-colace, MOM. PRN Lactulose. LBM: 0 DVT prophylaxis: Mechanical VTE with SCDs. Chemical management with Lovenox 40 mg QD DC Planning: Case management consulted for assistance with final discharge disposition[facility]. Emotional support provided to patient at bedside and plan of care discussed. Discussed with RN at bedside. Discussed pt condition and plan of care with collaborating trauma surgeon. Patient is hemodynamically stable and being managed in the ICU. May transfer to the med/surgery floor once a bed is available. The trauma team will round each day, and evaluate plan of care on a daily basis. Problem Qualifiers (1) Fall: Qualified Codes: W19.XXXA - Unspecified fall, initial encounter Shellie Pierce Sep 19, 2017 13:47
--- NOTE | 2017-09-19 17:11 | PD.WCN.NOT ---
Wound Consult Description: Consult for pressure ulcer to sacrum per Dr Higgins/LAURA Communicated with: BAETRICE Monk Patient Patient daughter at bedside Recommendation: Cleanse Stage II pressure injury to sacrum every 3 days. Apply a new adhesive foam dressing (Optifoam gentle) every 3 days and PRN for soiling or dislodgement. Date dressing. Please reposition patient from left to right sides only. Limiting time spent on back for therapy only. Patient may get up to bedside chair with foam dressing in place over sacrum. Additional Information: Patient seen on for wound evaluation of sacrum pressure injury. Patient was positioned to his right side with assistance from BEATRICE Monk for visualization of wound. Sacrum is noted with a wound measuring 1.4cm x 0.3cm x 0.2cm of 100% moist pink tissue. There is no active drainage and no odor present. Wound margins are sharp and well defined with maceration noted to margins indicating a mixed etiology of pressure and moisture related skin loss making this wound a Stage II. Recommend to cleanse wound every 3 days and PRN for saturation or dislodgement and apply a new foam adhesive dressing after prepping periwound with skin barrier film. Please reposition patient from left to right sides only limiting time spent on back for therapy only. Anahi Simon [facility] Sep 19, 2017 17:10
[2017-09-19] MEDS: MAGNESIUM HYDROXIDE SUSP 30 ML CUP PO SCH (20:20)
[2017-09-20] VITALS (7 sets, daily range): BP systolic 117–128; BP diastolic 71–78; PULSE 76–88; RESP 16–17; TEMP 97.2–98; O2SAT 95–96
[2017-09-20] MEDS: DILTIAZEM HCL 30 MG TAB PO SCH ×3 (00:04→13:32)
[2017-09-20 05:20] LABS: AUTOMATED NEUTROPHIL # 3.6 TH/MM3 (1.8-7.7); BASOPHIL % 0.6 % (0.0-2.0); EOSINOPHIL # 0.1 TH/MM3 (0-0.4); EOSINOPHIL % 1.6 % (0.0-4.0); HEMATOCRIT 31.3 % (39.0-51.0); HEMOGLOBIN 10.7 GM/DL (13.0-17.0); LYMPH % 7.1 % (9.0-44.0); LYMPHOCYTE # 0.3 TH/MM3 (1.0-4.8); MEAN CORPUSCULAR HEMOGLOBIN 28.6 PG (27.0-34.0); MEAN PLATELET VOLUME 7.5 FL (7.0-11.0); MONO % 5.1 % (0.0-8.0); MONOCYTE # 0.2 TH/MM3 (0-0.9); NEUT % 85.6 % (16.0-70.0); PLATELET COUNT 213 TH/MM3 (150-450); RED BLOOD COUNT 3.73 MIL/MM3 (4.50-5.90); RED CELL DISTRIBUTION WIDTH 18.2 % (11.6-17.2); WHITE BLOOD COUNT 4.2 TH/MM3 (4.0-11.0)
[2017-09-20 05:56] LABS: ALBUMIN 1.8 GM/DL (3.4-5.0); ALKALINE PHOSPHATASE 70 U/L (45-117); ALT (GPT) 48 U/L (12-78); AST (GOT) 63 U/L (15-37); BICARBONATE 27.4 MEQ/L (21.0-32.0); BLOOD UREA NITROGEN 39 MG/DL (7-18); CALCIUM 8.4 MG/DL (8.5-10.1); CHLORIDE 102 MEQ/L (98-107); CREATININE 0.93 MG/DL (0.60-1.30); GLOMERULAR FILTRATION RATE 77 ML/MIN (>89); GLUCOSE,RANDOM 96 MG/DL (74-106); SODIUM (NA) 137 MEQ/L (136-145); TOTAL BILIRUBIN ADULT 0.7 MG/DL (0.2-1.0); TOTAL PROTEIN 6.3 GM/DL (6.4-8.2)
[2017-09-20] MEDS: METHOCARBAMOL 500 MG TAB PO SCH ×2 (06:23→13:32)
--- NOTE | 2017-09-20 07:25 | RADRPT ---
EXAM DATE/TIME: 09/20/2017 06:40 [place] COMPARISON: CHEST SINGLE AP, September 19, 2017, 5:48. INDICATIONS : Short of breath, evaluate rib fractures and small left apical pneumothorax MEDICAL HISTORY : Cardiovascular disease. Hypertension SURGICAL HISTORY : None. ENCOUNTER: Subsequent ACUITY: 4 - 6 days PAIN SCORE: Non-responsive. LOCATION: Bilateral chest FINDINGS: Bibasilar consolidation and moderate right, small left pleural effusions are again noted. Left rib fr actures are again noted. No perceptible pneumothorax. Heart size stable, within normal limits. CONCLUSION: No significant change. Right greater than left basilar consolidation and effusions. Left rib fracture s without a pneumothorax. Ramon Rivera MD on September 20, 2017 at 7:21 Board Certified Radiologist. This report was verified electronically.
[2017-09-20] MEDS: MAGNESIUM HYDROXIDE SUSP 30 ML CUP PO SCH (09:15)
[2017-09-20] MEDS: FUROSEMIDE 20 MG/2 ML VIAL IV PUSH SCH (09:15)
[2017-09-20] MEDS: LACTULOSE SYRUP 20 GM/30 ML CUP PO SCH (09:15)
[2017-09-20] MEDS: DOCUSATE SODIUM 50 MG/SENNA 8.6 MG TAB PO SCH (09:15)
[2017-09-20] MEDS: SODIUM CHLORIDE 0.9% FLUSH 10 ML FLUSH IV FLUSH SCH (09:15)
[2017-09-20] MEDS: FAMOTIDINE 20 MG TAB PO SCH (09:15)
[2017-09-20] MEDS: LIDOCAINE HCL 5% PATCH T-DERMAL SCH (09:18)
[2017-09-20] MEDS ORDERED: Albuterol-Ipratropium Neb NEB (11:21)
[2017-09-20] MEDS ORDERED: FAMO20TA2 PO (11:21)
[2017-09-20] MEDS ORDERED: DILT31TA PO (11:21)
[2017-09-20] MEDS ORDERED: MAGN30S PO (11:21)
[2017-09-20] MEDS ORDERED: METH500T3 PO (11:21)
[2017-09-20] MEDS ORDERED: ENOX40P SQ (11:21)
[2017-09-20] MEDS ORDERED: Lactulose Liq PO (11:21)
[2017-09-20] MEDS ORDERED: LIDO1ADH4 T-DERMAL (11:21)
[2017-09-20] MEDS ORDERED: Furosemide (11:21)
[2017-09-20] MEDS ORDERED: HYDR-3516 PO (11:21)
[2017-09-20] MEDS ORDERED: PERI PO (11:21)
[2017-09-20] MEDS ORDERED: ACET325T15 PO (11:21)
--- NOTE | 2017-09-20 11:47 | HHI.PR ---
Subjective Remarks Follow-up atrial fibrillation with RVR/Ribs fractures 09/18/17-patient seen and examined, reports some shortness of breath and painful rib cage 09/19/17-patient seen and examined, denies any chest pain or shortness of breath. Currently on PO Cardizem and rate control 09/20/17-patient seen and examined, stable, no acute event overnight. Afebrile Objective Vitals Vital Signs Date Time Temp Pulse Resp B/P (MAP) Pulse Ox O2 Delivery O2 Flow Rate FiO2 09/20/17 08:00 97.2 88 16 122/78 (93) 95 09/20/17 07:41 96 09/20/17 06:24 81 128/72 (90) 09/20/17 04:29 97.8 85 17 124/75 (91) 96 09/20/17 04:02 76 09/20/17 00:36 98.0 83 17 117/71 (86) 96 09/20/17 00:01 79 09/19/17 22:26 97.6 85 17 101/59 (73) 94 09/19/17 20:00 86 09/19/17 20:00 97.6 94 24 115/56 (75) 96 09/19/17 19:00 95 Room Air 09/19/17 18:00 86 09/19/17 16:00 98.2 86 27 100/52 (68) 93 09/19/17 16:00 86 09/19/17 14:00 90 09/19/17 12:00 97.8 96 26 98/69 (79) 98 09/19/17 12:00 96 I/O 09/19/17 09/19/17 09/19/17 09/20/17 09/20/17 09/20/17 07:00 15:00 23:00 07:00 15:00 23:00 Intake Total 240 ml 600 ml 120 ml Output Total 700 ml 700 ml 650 ml Balance -460 ml -100 ml -530 ml Intake Oral 240 ml 600 ml 120 ml Output Urine Total 700 ml 700 ml 650 ml # Bowel Movements 0 0 Result Diagram: 09/20/17 0330 09/20/17 0330 Objective Remarks GENERAL: NAD SKIN: Warm and dry. HEAD: Normocephalic. EYES: No scleral icterus. No injection or drainage. NECK: Supple, trachea midline. No JVD or lymphadenopathy. CARDIOVASCULAR: Regular rate and rhythm without murmurs, gallops, or rubs. RESPIRATORY: Breath sounds decrease bilaterally. No accessory muscle use. GASTROINTESTINAL: Abdomen soft, non-tender, nondistended. MUSCULOSKELETAL: No cyanosis, or edema. BACK: Nontender without obvious deformity. No CVA tenderness. Procedures None A/P Problem List: (1) Fall ICD Code: W19.XXXA - Unspecified fall, initial encounter Status: Acute (2) Multiple rib fractures involving four or more ribs ICD Code: S22.49XA - Multiple fractures of ribs, unspecified side, initial encounter for closed fracture Status: Acute (3) Lactic acidosis ICD Code: E87.2 - Acidosis Status: Acute (4) Pleural effusion ICD Code: J90 - Pleural effusion, not elsewhere classified Status: Acute (5) A-fib ICD Code: I48.91 - Unspecified atrial fibrillation Status: Acute Assessment and Plan 87-year-old man with 1. Fall: Status post mechanical fall at home. Imaging including CT of the head and C-spine is negative for fracture. Continue physical therapy. fall precaution 2. Rib fractures: Left sixth through 10th ribs are fractured secondary to fall. Chest CT shows no pneumothorax. Appreciate trauma surgery evaluation. 3. Lactic acidosis: Serum lactic acid trending down. 4. Pleural effusion: Continue diuretic. Monitor intake/output. Echocardiogram on 08/03/17 showed ejection fraction of 50%. 5. Atrial fibrillation with RVR: Currently on Cardizem 30mg Q6H Oral anticoagulation is contraindicated, continue aspirin 81 mg daily Appreciate input from cardiology 6. DVT prophylaxis: SCDs, QUENTIN rogers. Discharge Planning Discharge per Trauma surgery Problem Qualifiers (1) Fall: Qualified Codes: W19.XXXA - Unspecified fall, initial encounter (2) A-fib: Qualified Codes: I48.91 - Unspecified atrial fibrillation Mauricio Dumont MD Sep 20, 2017 11:47
--- NOTE | 2017-09-20 12:37 | HHI.DS ---
Discharge Summary Admission Date Sep 16, 2017 at 18:30 Discharge Date: Sep 20, 2017 Admitting Diagnosis multiple rib fractures, afib with rvr, pleural effusions (1) Pleural effusion ICD Codes: J90 - Pleural effusion, not elsewhere classified Diagnosis: Principal Status: Acute (2) Bilateral pleural effusion ICD Codes: J90 - Pleural effusion, not elsewhere classified Diagnosis: Principal Status: Acute (3) A-fib ICD Codes: I48.91 - Unspecified atrial fibrillation Diagnosis: Principal Status: Acute (4) Fall ICD Codes: W19.XXXA - Unspecified fall, initial encounter Diagnosis: Principal Status: Acute (5) Multiple rib fractures involving four or more ribs ICD Codes: S22.49XA - Multiple fractures of ribs, unspecified side, initial encounter for closed fracture Diagnosis: Principal Status: Acute Brief History Fall. CBC/BMP: 09/20/17 0330 09/20/17 0330 Significant Findings Laboratory Tests Test 09/17/17 15:47 09/18/17 03:53 09/19/17 03:06 09/20/17 03:30 Blood Urea Nitrogen 30 MG/DL (7-18) 33 MG/DL (7-18) 37 MG/DL (7-18) 39 MG/DL (7-18) Potassium Level 5.7 MEQ/L (3.5-5.1) Estimat Glomerular Filtration Rate 59 ML/MIN (>89) 56 ML/MIN (>89) 62 ML/MIN (>89) 77 ML/MIN (>89) Troponin I LESS THAN 0.02 NG/ML Red Blood Count 3.81 MIL/MM3 (4.50-5.90) 3.96 MIL/MM3 (4.50-5.90) 3.73 MIL/MM3 (4.50-5.90) Hemoglobin 10.8 GM/DL (13.0-17.0) 11.4 GM/DL (13.0-17.0) 10.7 GM/DL (13.0-17.0) Hematocrit 32.5 % (39.0-51.0) 34.3 % (39.0-51.0) 31.3 % (39.0-51.0) Red Cell Distribution Width 18.4 % (11.6-17.2) 18.5 % (11.6-17.2) 18.2 % (11.6-17.2) Neutrophils (%) (Auto) 81.9 % (16.0-70.0) 85.1 % (16.0-70.0) 85.6 % (16.0-70.0) Lymphocytes # (Auto) 0.6 TH/MM3 (1.0-4.8) 0.5 TH/MM3 (1.0-4.8) 0.3 TH/MM3 (1.0-4.8) Random Glucose 112 MG/DL (74-106) 112 MG/DL (74-106) Calcium Level 8.0 MG/DL (8.5-10.1) 8.3 MG/DL (8.5-10.1) 8.4 MG/DL (8.5-10.1) Lymphocytes (%) (Auto) 8.4 % (9.0-44.0) 7.1 % (9.0-44.0) Total Protein 6.3 GM/DL (6.4-8.2) Albumin 1.8 GM/DL (3.4-5.0) Aspartate Amino Transf (AST/SGOT) 63 U/L (15-37) Imaging Last Impressions Chest X-Ray 09/20/17 0600 Signed Impressions: Service Date/Time: September 06:40 - CONCLUSION: No significant change. Right greater than left basilar consolidation and effusions. Left rib fractures without a pneumothorax. Ramon Rivera MD Thoracentesis Ultrasound 09/18/17 0000 Signed Impressions: Service Date/Time: Monday, September 18, 2017 09:42 - CONCLUSION: Uncomplicated ultrasound guided thoracentesis. Mauricio Shah MD Elbow X-Ray 09/17/17 0000 Signed Impressions: Service Date/Time: Sunday, September 17, 2017 10:48 - CONCLUSION: 1. Soft tissue swelling without fracture. Mauricio Shah MD Ribs X-Ray 09/16/17 1536 Signed Impressions: Service Date/Time: Saturday, September 16, 2017 15:59 - CONCLUSION: Mild to moderate displaced fractures laterally of the left sixth through 10th ribs. No pneumothorax but a small hemothorax is possible. Ramon Rivera MD Pelvis X-Ray 09/16/17 1536 Signed Impressions: Service Date/Time: Saturday, September 16, 2017 15:57 - CONCLUSION: Intact pelvis. Ramon Rivera MD Lumbar Spine X-Ray 09/16/17 1536 Signed Impressions: Service Date/Time: Saturday, September 16, 2017 15:58 - CONCLUSION: No evidence of fracture or subluxation of the lumbar spine. Moderate to severe degenerative changes. Ramon Rivera MD Head CT 09/16/17 1506 Signed Impressions: Service Date/Time: Saturday, September 16, 2017 16:22 - CONCLUSION: No acute intracranial abnormality. Ramon Rivera MD Chest CT 09/16/17 0000 Signed Impressions: Service Date/Time: Saturday, September 16, 2017 17:33 - CONCLUSION: 1. Multiple acute left-sided rib fractures. No evidence of pneumothorax. 2. Mildly dilated ascending thoracic aorta. 3. Bilateral moderate-sized pleural effusions and atelectasis. Tone Potter MD Cervical Spine CT 09/16/17 0000 Signed Impressions: Service Date/Time: Saturday, September 16, 2017 17:29 - CONCLUSION: No evidence of fracture. Prominent multilevel degenerative findings. Tone Potter MD Abdomen/Pelvis CT 09/16/17 0000 Signed Impressions: Service Date/Time: Saturday, September 16, 2017 17:23 - CONCLUSION: 1. No evidence of acute visceral organ injury or other trauma of the abdomen or pelvis. 2. There are left rib fractures and bilateral pleural effusions noted. Please refer to chest CT report. 3. Cysts of the liver and multiple small peripelvic cysts of both kidneys. Ramon Rivera MD PE at Discharge GENERAL: This is a 87-year-old male lying in bed. No distress noted. SKIN: Warm and dry. HEAD: Atraumatic. Normocephalic. EYES: PERRLA ENT: No nasal bleeding or discharge. Mucous membranes pink and moist. NECK: Trachea midline. No JVD. CARDIOVASCULAR: Regular rate and rhythm. RESPIRATORY: No accessory muscle use. Lungs are clear to auscultation. Breath sounds equal bilaterally. No distress or dyspnea. GASTROINTESTINAL: BS + x 4 quads. Abdomen soft, non-tender, nondistended. MUSCULOSKELETAL: Extremities without cyanosis, or edema. + peripheral pulses x 4 extremities. Warm with good capillary refill and sensation. MAEW. NEUROLOGICAL: Awake and alert. Normal speech and pattern. Hospital Course [place]: This is an 87-year-old male who Fell from the standing position in the shower. He landed on the side of the bathtub on his left side. No LOC. INJURIES: LEFT rib fxs (6-10) LEFT JIN LEFT pulmonary contusion PMHx: Afib, COPD, TBI, dementia Procedures: 09/18: CT-guided left thoracentesis with 1 L clear red fluid Consults: Hospitalist. Cardiology. Case management. The patient is now tolerating a po diet. Eating and drinking well. Pain is being managed well with PO pain medications, and all hospital medications will continue at [facility] We have recommended to patient to continue with stool softeners while taking narcotic pain medications to prevent constipation. Pt has been participating in PT and OT while admitted at [facility] and has been ambulating with their assistance and independently . PT and OT will continue at [facility]. All follow up appointments have been provided and discussed with the patient. It is recommended that the patient keeps all his follow up appointments for continued recovery. Patient's condition and plan of care discussed with collaborating trauma surgeon. He is agreeable to plan for discharge today. Therefore, the patient is stable to be safely discharged to [facility] from a trauma surgery standpoint. Thank you for allowing us to participate in his care. We wish Kamar the best in his recovery. LEFT rib fxs (6-10) LEFT JIN LEFT pulmonary contusion O2 as needed Aggressive pulmonary toileting Chest x-ray as needed Chest x-ray this a.m. shows no PTX 09/18: CT-guided left thoracentesis Pain management PT and OT ordered Encourage out of bed A. fib RVR Cardiology consulted and assisting in management and care Patient history of A. fib, COPD, TBI, dementia Cardizem drip Transitioned to Cardizem 30 mg every 6 hours Cardiology does not recommend full anticoagulation at this time Continue aspirin Follow-up with cardiology outpatient Pt Condition on Discharge: Stable Discharge Disposition: Rehab Inpatient Discharge Instructions DIET: Follow Instructions for: Heart Healthy Diet Activities you can perform: Regular-No Restrictions Activities to Avoid: Driving for 24 hrs, Concussion Sports, Contact Sports, Lifting/Bending, Prolonged Standing, Strenuous Activity Shellie Pierce Sep 20, 2017 12:37
[2017-09-20] MEDS: ENOXAPARIN SODIUM 40 MG/0.4 ML SYRINGE SQ SCH (13:33)
--- NOTE | 2017-09-20 19:31 | PD.CARD.PN ---
Subjective Subjective Remarks Patient was seen earlier today, late entry note No pain except with deep breathing Heart rates controlled off Cardizem drip Objective Vital Signs / I&O Vital Signs Date Time Temp Pulse Resp B/P (MAP) Pulse Ox O2 Delivery O2 Flow Rate FiO2 09/20/17 09:11 95 Room Air 09/20/17 08:00 80 09/20/17 08:00 97.2 88 16 122/78 (93) 95 09/20/17 07:41 96 09/20/17 06:24 81 128/72 (90) 09/20/17 04:29 97.8 85 17 124/75 (91) 96 09/20/17 04:02 76 09/20/17 00:36 98.0 83 17 117/71 (86) 96 09/20/17 00:01 79 09/19/17 22:26 97.6 85 17 101/59 (73) 94 09/19/17 20:00 86 09/19/17 20:00 97.6 94 24 115/56 (75) 96 I/O 09/19/17 09/19/17 09/19/17 09/20/17 09/20/17 09/20/17 07:00 15:00 23:00 07:00 15:00 23:00 Intake Total 240 ml 600 ml 120 ml Output Total 700 ml 700 ml 650 ml Balance -460 ml -100 ml -530 ml Intake Oral 240 ml 600 ml 120 ml Output Urine Total 700 ml 700 ml 650 ml # Bowel Movements 0 0 Physical Exam GENERAL: NAD SKIN: Warm and dry. HEAD: Atraumatic. Normocephalic. EYES: Pupils equal and round. No scleral icterus. No injection or drainage. ENT: No nasal bleeding or discharge. Mucous membranes pink and moist. NECK: Trachea midline. No JVD. CARDIOVASCULAR: Irregularly irregular RESPIRATORY: No accessory muscle use. Clear to auscultation. Breath sounds equal bilaterally. GASTROINTESTINAL: Abdomen soft, non-tender, nondistended. Hepatic and splenic margins not palpable. MUSCULOSKELETAL: Extremities without clubbing, cyanosis, or edema. No obvious deformities. NEUROLOGICAL: Awake and alert. No obvious cranial nerve deficits. Motor grossly within normal limits. Five out of 5 muscle strength in the arms and legs. Normal speech. PSYCHIATRIC: Appropriate mood and affect; insight and judgment normal. Laboratory Laboratory Tests Test 09/20/17 03:30 White Blood Count 4.2 TH/MM3 Red Blood Count 3.73 MIL/MM3 Hemoglobin 10.7 GM/DL Hematocrit 31.3 % Mean Corpuscular Volume 84.0 FL Mean Corpuscular Hemoglobin 28.6 PG Mean Corpuscular Hemoglobin Concent 34.0 % Red Cell Distribution Width 18.2 % Platelet Count 213 TH/MM3 Mean Platelet Volume 7.5 FL Neutrophils (%) (Auto) 85.6 % Lymphocytes (%) (Auto) 7.1 % Monocytes (%) (Auto) 5.1 % Eosinophils (%) (Auto) 1.6 % Basophils (%) (Auto) 0.6 % Neutrophils # (Auto) 3.6 TH/MM3 Lymphocytes # (Auto) 0.3 TH/MM3 Monocytes # (Auto) 0.2 TH/MM3 Eosinophils # (Auto) 0.1 TH/MM3 Basophils # (Auto) 0.0 TH/MM3 CBC Comment DIFF FINAL Differential Comment Blood Urea Nitrogen 39 MG/DL Creatinine 0.93 MG/DL Random Glucose 96 MG/DL Total Protein 6.3 GM/DL Albumin 1.8 GM/DL Calcium Level 8.4 MG/DL Alkaline Phosphatase 70 U/L Aspartate Amino Transf (AST/SGOT) 63 U/L Alanine Aminotransferase (ALT/SGPT) 48 U/L Total Bilirubin 0.7 MG/DL Sodium Level 137 MEQ/L Potassium Level 3.7 MEQ/L Chloride Level 102 MEQ/L Carbon Dioxide Level 27.4 MEQ/L Anion Gap 8 MEQ/L Estimat Glomerular Filtration Rate 77 ML/MIN Imaging Last 24 hours Impressions Chest X-Ray 09/20/17 0600 Signed Impressions: Service Date/Time: September 06:40 - CONCLUSION: No significant change. Right greater than left basilar consolidation and effusions. Left rib fractures without a pneumothorax. Ramon Rivera MD Assessment and Plan Problem List: (1) A-fib ICD Codes: I48.91 - Unspecified atrial fibrillation Status: Acute (2) Multiple rib fractures involving four or more ribs ICD Codes: S22.49XA - Multiple fractures of ribs, unspecified side, initial encounter for closed fracture Status: Acute (3) Bilateral pleural effusion ICD Codes: J90 - Pleural effusion, not elsewhere classified Status: Acute (4) Fall ICD Codes: W19.XXXA - Unspecified fall, initial encounter Status: Acute (5) Lactic acidosis ICD Codes: E87.2 - Acidosis Status: Acute (6) Acute exacerbation of CHF (congestive heart failure) ICD Codes: I50.9 - Heart failure, unspecified Assessment and Plan 1) AFib with RVR Now controlled on Cardizem PO, can be changed to long acting on discharge Not a candidate for anti-coagulation, con't ASA 81mg Will watch blood pressure, mostly low normal 2) Multiple falls 3) Broken ribs secondary to fall 4) Bilateral effusion s/p thoracentesis 5) For rehab today Daughter will call to have patient scheduled to see me in the office Problem Qualifiers (1) A-fib: Qualified Codes: I48.91 - Unspecified atrial fibrillation (2) Fall: Qualified Codes: W19.XXXA - Unspecified fall, initial encounter Theron Loja DO Sep 20, 2017 19:31
== END 2017-09-20 13:49 | DRG 183 ==
LOC: NEPC 12:54 → NEDA 18:30 → N03B 20:09 → N05B 09-19 21:47
PROVIDERS: ADMIT Surgery; ATTEND Surgery
PROC: 0W9B3ZZ Drainage of Left Pleural Cavity, Percutaneous Approach (ICD-10-PCS; principal; 2017-09-18)
DX: S22.42XA Multiple fractures of ribs, left side, initial encounter for closed fracture (principal); S27.1XXA Traumatic hemothorax, initial encounter; L89.152 Pressure ulcer of sacral region, stage 2; S27.322A Contusion of lung, bilateral, initial encounter; I11.0 Hypertensive heart disease with heart failure; E87.2 Acidosis; I48.2 Chronic atrial fibrillation; J90 Pleural effusion, not elsewhere classified; I50.9 Heart failure, unspecified; F03.90 Unspecified dementia, unspecified severity, without behavioral disturbance, psychotic disturbance, mood disturbance, and anxiety; J98.11 Atelectasis; J95.811 Postprocedural pneumothorax; H91.93 Unspecified hearing loss, bilateral; I25.10 Atherosclerotic heart disease of native coronary artery without angina pectoris; J44.9 Chronic obstructive pulmonary disease, unspecified; R29.6 Repeated falls; W01.198A Fall on same level from slipping, tripping and stumbling with subsequent striking against other object, initial encounter; Y92.002 Bathroom of unspecified non-institutional (private) residence as the place of occurrence of the external cause; Z91.81 History of falling
CPT/HCPCS: 32555; 70450; 71045; 71101; 71260; 72100; 72125; 72170; 73080; 74177; 80048; 80053; 81001; 82140; 82550; 83605; 83880; 84443; 84484; 85025; 85610; 85730; 87040; 87641; 93005; 94150; 94667; 94668; 96365; 96375; C1729; J1650; J1940; J2270; J2543; J3370; J7030; J7050; Q9967